=== PATIENT | male | born 1985 | race Caucasian/White ===

== ENCOUNTER 2016-07-28 14:18 | Emergency (ER) | payer MEDICAID ==
[~2016-07-28] VITALS: Ht 177.8 cm; Wt 60.2 kg
[~2016-07-28 14:18] MED LIST: ALBU8.5H5 INH; AMPH20TA2 PO; MORP30TA PO
[2016-07-28] MEDS ORDERED: SODIUM CHLORIDE FLUSH 10ML SYR IVF ONE (15:00)
[2016-07-28] MEDS ORDERED: SODIUM CHLORIDE 0.9% 1,000ML IVBOLUS ONE (15:00)
[2016-07-28] MEDS ORDERED: LIDOCAINE 1%-EPI 1:100K, 20ML SQ ONE (15:00)
[2016-07-28] MEDS ORDERED: CEFTRIAXONE 1,000 MG IM ONE (15:00)
[2016-07-28] MEDS ORDERED: CEFTRIAXONE PMX 1GM/50ML 50 ML ONE (15:21)
[2016-07-28] MEDS ORDERED: LIDOCAINE 1%-EPI 1:100K, 20ML ONE (15:21)
[2016-07-28] MEDS ORDERED: CEFTRIAXONE PMX 1GM/50ML 50 ML IV ONE (15:30)
[2016-07-28 15:32] LABS: BLOOD UREA NITROGEN 5 mg/dL (7-18)
[2016-07-28 19:30] VITALS: BP 100/70
== END 2016-07-28 19:38 | disposition home or self-care (01) ==
LOC: ED 15:18
DX: F10.220 Alcohol dependence with intoxication, uncomplicated (principal); L02.413 Cutaneous abscess of right upper limb; F11.10 Opioid abuse, uncomplicated; Y90.9 Presence of alcohol in blood, level not specified; F17.200 Nicotine dependence, unspecified, uncomplicated; C25.9 Malignant neoplasm of pancreas, unspecified; J45.990 Exercise induced bronchospasm
CPT/HCPCS: 10060; 36415; 80048; 82040; 85025; 96365; 99284; J0696; J7030

== ENCOUNTER 2016-08-31 07:49 | Inpatient (IN) | payer MEDICAID ==
[~2016-08-31] VITALS: Ht 172.7 cm; Wt 60.4 kg
[2016-08-31] MEDS ORDERED: SODIUM CHLORIDE 0.9% 1,000ML IVBOLUS ONE ×2 (08:30→12:30)
[2016-08-31 08:48] LABS: ASPARTATE AMINO TRANSFERASE 39 U/L (15-37); BLOOD UREA NITROGEN 9 mg/dL (7-18)
[2016-08-31] MEDS ORDERED: LORazepam 2 MG/ML, 1ML ONE ×2 (08:50→11:44)
[2016-08-31 08:55] LABS: ACETAMINOPHEN < 2 mcg/mL (10-30)
[2016-08-31] MEDS ORDERED: SUCCINYLCHOLINE 20 MG/ML, 10ML ONE (09:00)
[2016-08-31] MEDS ORDERED: ETOMIDATE 20 MG/10 ML ONE (09:00)
[2016-08-31] MEDS ORDERED: LORazepam 2 MG/ML, 1ML IVPush ONE ×2 (09:00→12:00)
[2016-08-31] MEDS ORDERED: ZIPRASIDONE 20 MG INJ IM ONE ×2 (09:26→09:30)
[2016-08-31 11:01] LABS: DAU SCREEN DISCLAIMER
[2016-08-31] MEDS ORDERED: DIPHENHYDRAMINE 50 MG/ML, 1ML ONE ×2 (11:12→11:13)
[2016-08-31] MEDS ORDERED: DIPHENHYDRAMINE 50 MG/ML, 1ML IVPush ONE (11:30)
[2016-08-31] MEDS ORDERED: PROPOFOL 100 ML IV ONE (12:02)
[2016-08-31] MEDS ORDERED: FENTANYL PF 100 MCG/2ML ONE (12:27)
[2016-08-31] MEDS ORDERED: SODIUM CHLORIDE FLUSH 10ML SYR IVF ONE (12:30)
[2016-08-31] MEDS ORDERED: VANCOMYCIN PER PHARMACY MC ONE (12:30)
[2016-08-31] MEDS ORDERED: ETOMIDATE 20 MG/10 ML IVPush ONE (12:30)
[2016-08-31] MEDS ORDERED: SUCCINYLCHOLINE 20 MG/ML, 10ML IVPush ONE (12:30)
[2016-08-31] MEDS ORDERED: CEFTRIAXONE PMX 2GM/50ML 50 ML IV ONE (12:30)
[2016-08-31] MEDS ORDERED: VANCOMYCIN PMX 1GM/200ML 200 ML IVPB ONE (12:30)
[2016-08-31] MEDS ORDERED: PHARMACOKINETIC CONSULTATION MC ONE ×2 (12:30→18:00)
[2016-08-31] MEDS ORDERED: FENTANYL PF 100 MCG/2ML IVPush ONE (12:30)
[2016-08-31 12:57] LABS: ABG COLLECTION SITE LEFT RADIAL
[2016-08-31 12:58] LABS: COLLATERAL CIRCULATION TESTING NORMAL
[2016-08-31] MEDS: PROPOFOL 100 ML IV SCH ×3 (14:35→22:49)
[2016-08-31] MEDS ORDERED: FENTANYL PF 2,500 MCG in SODIUM CHLORIDE 0.9% 200 ML IV PRN (16:18)
[2016-08-31] MEDS ORDERED: PHARMACY MAY ADJ FOR RENAL FX MC SCH (16:30)
[2016-08-31] MEDS ORDERED: D5%-0.9% NACL+KCL 20MEQ 1,000 ML IV SCH (16:30)
[2016-08-31] MEDS ORDERED: DEXTROSE 50%, 50ML SYRINGE IVPush PRN (16:30)
[2016-08-31] MEDS ORDERED: GLUCAGON 1 MG IM PRN (16:30)
[2016-08-31] MEDS ORDERED: LIDOCAINE-MPF 1%, 2ML ENDO PRN (16:30)
[2016-08-31] MEDS ORDERED: BISACODYL 10 MG SUPP PR PRN (17:00)
[2016-08-31] MEDS ORDERED: MORPHINE SULFATE 4 MG/ML, 1ML IVPush PRN (17:00)
[2016-08-31] MEDS ORDERED: POLYETHYLENE GLYCOL 17 GM PACKET PO PRN (17:00)
[2016-08-31] MEDS ORDERED: VANCOMYCIN PER PHARMACY MC PRN (18:00)
[2016-08-31] MEDS: SODIUM CHLORIDE 0.9% 1,000 ML IV SCH (18:00)
[2016-08-31] MEDS ORDERED: PHARMACOKINETIC MONITORING MC PRN (18:00)
[2016-08-31] MEDS: PIPERACILLIN/TAZO/PMX 3.375GM 50 ML IV SCH (18:08)
[2016-08-31] MEDS: POTASSIUM CHLORIDE 20 MEQ, MAGNESIUM SULFATE 2 GM, THIAMINE 100 MG, MVI ADULT 10 ML, FO... IV SCH (18:08)
[2016-08-31] MEDS: ENOXAPARIN 40 MG/0.4 ML SQ SCH (18:10)
[2016-08-31] MEDS ORDERED: LORazepam 2 MG/ML, 1ML IV PRN ×5 (19:00)
[2016-08-31] MEDS: LORazepam 2 MG/ML, 1ML IVPush PRN ×2 (20:40→22:49)
[2016-08-31] MEDS ORDERED: DOCUSATE 100 MG CAPSULE PO PRN (21:00)
[2016-08-31] MEDS: SODIUM CHLORIDE FLUSH 10ML SYR IVF SCH (21:25)
[2016-08-31] MEDS: FAMOTIDINE 20 MG/2 ML IV SCH (21:25)
[2016-08-31 23:25] VITALS: BP 138/92
[2016-09-01] MEDS: PIPERACILLIN/TAZO/PMX 3.375GM 50 ML IV SCH ×5 (00:15→23:38)
[2016-09-01] MEDS: VANCOMYCIN 1,200 MG in SODIUM CHLORIDE 0.9% 250 ML IV SCH ×2 (00:57→12:14)
[2016-09-01] MEDS: LORazepam 2 MG/ML, 1ML IVPush PRN ×2 (01:50→06:13)
[2016-09-01] MEDS: PROPOFOL 100 ML IV SCH (03:51)
[2016-09-01 04:00] VITALS: BP 118/90
[2016-09-01 04:32] LABS: ABG COLLECTION SITE RIGHT RADIAL; COLLATERAL CIRCULATION TESTING NORMAL
[2016-09-01 04:45] LABS: ASPARTATE AMINO TRANSFERASE 33 U/L (15-37); BLOOD UREA NITROGEN 8 mg/dL (7-18)
[2016-09-01] MEDS: SODIUM CHLORIDE 0.9% 1,000 ML IV SCH (06:46)
[2016-09-01] MEDS: FAMOTIDINE 20 MG/2 ML IV SCH ×2 (09:21→21:05)
[2016-09-01] MEDS: SODIUM CHLORIDE FLUSH 10ML SYR IVF SCH ×2 (09:21→21:05)
[2016-09-01] MEDS: QUETIAPINE 25MG TABLET NG SCH ×2 (09:21→21:05)
[2016-09-01] MEDS ORDERED: ZIPRASIDONE 20 MG INJ IM PRN (14:30)
[2016-09-01] MEDS: NICOTINE 14MG/24 HR PATCH.TD24 TD SCH (14:41)
[2016-09-01] MEDS: POTASSIUM CHLORIDE 20 MEQ, MAGNESIUM SULFATE 2 GM, THIAMINE 100 MG, MVI ADULT 10 ML, FO... IV SCH (17:50)
[2016-09-01] MEDS: ENOXAPARIN 40 MG/0.4 ML SQ SCH (17:53)
[2016-09-02] MEDS: VANCOMYCIN 1,200 MG in SODIUM CHLORIDE 0.9% 250 ML IV SCH ×2 (00:20→12:46)
[2016-09-02] MEDS: SODIUM CHLORIDE 0.9% 1,000 ML IV SCH ×2 (01:51→05:47)
[2016-09-02 04:00] VITALS: BP 116/82
[2016-09-02 04:54] LABS: BLOOD UREA NITROGEN 4 mg/dL (7-18)
[2016-09-02 05:03] LABS: ABG COLLECTION SITE RIGHT RADIAL; COLLATERAL CIRCULATION TESTING NORMAL
[2016-09-02] MEDS: PIPERACILLIN/TAZO/PMX 3.375GM 50 ML IV SCH ×3 (05:48→18:20)
[2016-09-02] MEDS: FAMOTIDINE 20 MG/2 ML IV SCH (09:24)
[2016-09-02] MEDS: SODIUM CHLORIDE FLUSH 10ML SYR IVF SCH ×2 (09:25→20:59)
[2016-09-02] MEDS: QUETIAPINE 25MG TABLET NG SCH ×2 (09:25→20:59)
[2016-09-02 10:54] VITALS: BP 134/88
[2016-09-02] MEDS: NICOTINE 14MG/24 HR PATCH.TD24 TD SCH (14:17)
[2016-09-02 15:58] VITALS: BP 130/86
[2016-09-02] MEDS: POTASSIUM CHLORIDE 20 MEQ, MAGNESIUM SULFATE 2 GM, THIAMINE 100 MG, MVI ADULT 10 ML, FO... IV SCH (18:05)
[2016-09-02] MEDS: ENOXAPARIN 40 MG/0.4 ML SQ SCH (18:05)
[2016-09-02 20:32] VITALS: BP 120/61
[2016-09-03] MEDS: PIPERACILLIN/TAZO/PMX 3.375GM 50 ML IV SCH ×3 (00:09→12:45)
[2016-09-03] MEDS: VANCOMYCIN 1,200 MG in SODIUM CHLORIDE 0.9% 250 ML IV SCH ×2 (01:04→13:25)
[2016-09-03 02:13] VITALS: BP 140/86
[2016-09-03 05:33] LABS: BLOOD UREA NITROGEN 4 mg/dL (7-18)
[2016-09-03 07:54] VITALS: BP 140/88
[2016-09-03] MEDS: SODIUM CHLORIDE FLUSH 10ML SYR IVF SCH (09:00)
[2016-09-03] MEDS: QUETIAPINE 25MG TABLET NG SCH (09:37)
[2016-09-03] MEDS: NICOTINE 14MG/24 HR PATCH.TD24 TD SCH (13:26)
[2016-09-03] MEDS ORDERED: SULF1TAB24 PO (13:40)
[2016-09-03 13:56] VITALS: BP 151/82
== END 2016-09-03 15:35 | disposition home or self-care (01) | DRG 208 ==
LOC: ED 12:06 → EDIP 12:16 → CCU 13:53 → 3NE 09-02 10:39
PROVIDERS: ADMIT Hospitalist; ATTEND Family Medicine
PROC: 5A1945Z Respiratory Ventilation, 24-96 Consecutive Hours (ICD-10-PCS; principal; 2016-08-31)
PROC: 0BH17EZ Insertion of Endotracheal Airway into Trachea, Via Natural or Artificial Opening (ICD-10-PCS; 2016-08-31)
PROC: 0T9B70Z Drainage of Bladder with Drainage Device, Via Natural or Artificial Opening (ICD-10-PCS; 2016-08-31)
DX: J96.00 Acute respiratory failure, unspecified whether with hypoxia or hypercapnia (principal); G92 Toxic encephalopathy; E87.2 Acidosis; Z99.11 Dependence on respirator [ventilator] status; F10.129 Alcohol abuse with intoxication, unspecified; Z85.07 Personal history of malignant neoplasm of pancreas; F15.10 Other stimulant abuse, uncomplicated
CPT/HCPCS: 31500; 36415; 36600; 70450; 71010; 80048; 80053; 80202; 80307; 80329; 81003; 82140; 82550; 82803; 83605; 83690; 83735; 84145; 84443; 84478; 85025; 87040; 87070; 87077; 87081; 87184; 87186; 87205; 93005; 94002; 94003; 96361; 96372; 96374; 96375; 96376; J1650; J2543; J2704; J3010; J3370; J3411; J3475; J3480; J3486; J7042; G0480; J0330; J1200; J2060; J7030; J7050; S0028

== ENCOUNTER 2016-09-08 16:42 | Emergency (ER) | payer MEDICAID ==
[~2016-09-08 16:42] MED LIST changes: +SULF1TAB24 PO
[2016-09-08 16:45] VITALS: BP 119/79
== END 2016-09-08 17:44 | disposition left against medical advice (07) ==
LOC: ED 17:38
DX: R11.0 Nausea (principal); Z53.21 Procedure and treatment not carried out due to patient leaving prior to being seen by health care provider

== ENCOUNTER 2016-11-12 07:14 | Emergency (ER) | payer MEDICAID ==
[~2016-11-12] VITALS: Ht 170.2 cm; Wt 61.6 kg
[2016-11-12 07:18] VITALS: BP 129/74
== END 2016-11-12 07:54 | disposition home or self-care (01) ==
LOC: ED 07:48
DX: L03.113 Cellulitis of right upper limb (principal)

== ENCOUNTER 2016-11-21 14:09 | Emergency (ER) | payer MEDICAID ==
[~2016-11-21] VITALS: Ht 170.2 cm; Wt 55.0 kg
[2016-11-21] MEDS ORDERED: NALOXONE 0.4 MG/ML, 1ML ONE (14:37)
[2016-11-21] MEDS ORDERED: NALOXONE 1 MG/ML, 2ML IVPush ONE (15:30)
[2016-11-21 16:02] VITALS: BP 110/66
[2016-11-21] MEDS ORDERED: OXYC10TA6 PO (16:03)
== END 2016-11-21 16:06 | disposition home or self-care (01) ==
LOC: ED 14:47
DX: T40.1X1A Poisoning by heroin, accidental (unintentional), initial encounter (principal); F17.200 Nicotine dependence, unspecified, uncomplicated; F15.10 Other stimulant abuse, uncomplicated; K86.1 Other chronic pancreatitis; Z85.07 Personal history of malignant neoplasm of pancreas; Z88.8 Allergy status to other drugs, medicaments and biological substances; Y92.89 Other specified places as the place of occurrence of the external cause
CPT/HCPCS: 96374; 99284; J2310

== ENCOUNTER 2017-01-03 18:01 | Emergency (ER) | payer MEDICAID ==
[~2017-01-03] VITALS: Ht 170.2 cm; Wt 60.0 kg
[~2017-01-03 18:01] MED LIST changes: +OXYC10TA6 PO
[2017-01-03] MEDS ORDERED: ONDANSETRON 2MG/ML, 2ML IVPush ONE (18:30)
[2017-01-03] MEDS ORDERED: SODIUM CHLORIDE 0.9% 1,000ML IVBOLUS ONE ×2 (18:30→20:00)
[2017-01-03] MEDS ORDERED: KETOROLAC 30 MG/1 ML IVPush ONE (18:30)
[2017-01-03] MEDS ORDERED: LORazepam 2 MG/ML, 1ML IVPush ONE (18:30)
[2017-01-03] MEDS ORDERED: KETOROLAC 30 MG/1 ML ONE (18:49)
[2017-01-03] MEDS ORDERED: ONDANSETRON 2MG/ML, 2ML ONE (18:50)
[2017-01-03] MEDS ORDERED: LORazepam 2 MG/ML, 1ML ONE (18:50)
[2017-01-03 18:51] LABS: HEMATOCRIT 47.7 % (39.2-51.8); HEMOGLOBIN 15.7 g/dL (13.7-18.0); WHITE BLOOD COUNT 6.6 x10^3/uL (3.4-10)
[2017-01-03 18:57] LABS: ASPARTATE AMINO TRANSFERASE 31 U/L (15-37); BLOOD UREA NITROGEN 6 mg/dL (7-18)
[2017-01-03 19:03] LABS: IS PT STATUS REG ER OR PRE ER? YES
[2017-01-03 20:39] VITALS: BP 138/81
[2017-01-03 22:13] LABS: DAU SCREEN DISCLAIMER
== END 2017-01-03 23:17 | disposition home or self-care (01) ==
LOC: ED 21:45
DX: E86.0 Dehydration (principal); R11.2 Nausea with vomiting, unspecified; F14.20 Cocaine dependence, uncomplicated; F12.20 Cannabis dependence, uncomplicated; F15.20 Other stimulant dependence, uncomplicated
CPT/HCPCS: 36415; 70450; 71010; 80053; 80307; 81001; 82550; 82553; 83605; 83735; 84145; 84436; 84443; 84484; 85025; 87086; 93005; 96361; 96374; 96375; 99285; J1885; J2060; J2405; J7030

== ENCOUNTER 2017-01-31 00:08 | Inpatient (IN) | payer MEDICAID ==
[~2017-01-31] VITALS: Ht 170.2 cm; Wt 59.0 kg
[2017-01-31] MEDS ORDERED: CLINDAMYCIN PMX 900MG/50ML 50 ML IV ONE (02:00)
[2017-01-31] MEDS ORDERED: SODIUM CHLORIDE FLUSH 10ML SYR IVF ONE (02:00)
[2017-01-31] MEDS ORDERED: SODIUM CHLORIDE 0.9% 1,000ML IVBOLUS ONE ×2 (02:00→02:30)
[2017-01-31 02:07] LABS: HEMATOCRIT 52.3 % (39.2-51.8); WHITE BLOOD COUNT 23.1 x10^3/uL (3.4-10)
[2017-01-31 02:17] LABS: BLOOD UREA NITROGEN 6 mg/dL (7-18)
[2017-01-31] MEDS ORDERED: CLINDAMYCIN PMX 900MG/50ML 50 ML ONE (03:19)
[2017-01-31] MEDS ORDERED: ZOLPIDEM 5MG TABLET PO PRN (03:30)
[2017-01-31] MEDS: CLINDAMYCIN PMX 600MG/50ML 50 ML IV SCH ×4 (03:30→23:12)
[2017-01-31] MEDS ORDERED: morphine SULFATE 10 MG/ML, 1ML IVPush PRN (03:30)
[2017-01-31] MEDS ORDERED: ONDANSETRON 2MG/ML, 2ML IVPush PRN (03:30)
[2017-01-31] MEDS ORDERED: ENOXAPARIN 40 MG/0.4 ML ONE (08:28)
[2017-01-31] MEDS: ENOXAPARIN 40 MG/0.4 ML SQ SCH (08:54)
[2017-01-31] MEDS: SODIUM CHLORIDE FLUSH 10ML SYR IVF SCH ×3 (08:55→21:19)
[2017-01-31 10:31] VITALS: BP 117/61
[2017-01-31 11:30] VITALS: BP 117/61
[2017-01-31] MEDS: OXYcodone/APAP 5/325MG TABLET PO PRN ×2 (13:37→21:19)
[2017-01-31 15:59] VITALS: BP 120/71
[2017-01-31 20:00] VITALS: BP 119/69
[2017-02-01 02:56] VITALS: BP 123/75
[2017-02-01] MEDS: CLINDAMYCIN PMX 600MG/50ML 50 ML IV SCH ×2 (05:22→11:20)
[2017-02-01 06:06] LABS: HEMATOCRIT 48.3 % (39.2-51.8); HEMOGLOBIN 15.9 g/dL (13.7-18.0); WHITE BLOOD COUNT 12.8 x10^3/uL (3.4-10)
[2017-02-01 06:11] LABS: BLOOD UREA NITROGEN 9 mg/dL (7-18)
[2017-02-01 07:28] VITALS: BP 117/75
[2017-02-01] MEDS: ENOXAPARIN 40 MG/0.4 ML SQ SCH (09:52)
[2017-02-01] MEDS: SODIUM CHLORIDE FLUSH 10ML SYR IVF SCH ×2 (09:52→21:00)
[2017-02-01] MEDS: OXYcodone/APAP 5/325MG TABLET PO PRN ×2 (10:48→18:01)
[2017-02-01 12:56] VITALS: BP 121/67
[2017-02-01] MEDS: VANCOMYCIN 1,200 MG in SODIUM CHLORIDE 0.9% 250 ML IV SCH (16:00)
[2017-02-01] MEDS ORDERED: PHARMACOKINETIC MONITORING MC PRN (16:00)
[2017-02-01] MEDS ORDERED: PHARMACOKINETIC CONSULTATION MC ONE (16:00)
[2017-02-01] MEDS ORDERED: VANCOMYCIN PER PHARMACY MC PRN (16:00)
[2017-02-01] MEDS ORDERED: AMPICILLIN/SULBACTAM 3 GM IVPB SCH (19:00)
[2017-02-01] MEDS ORDERED: AMPICILLIN/SULBACTAM 3 GM in SODIUM CHLORIDE 0.9% 100 ML IV SCH (19:30)
[2017-02-01 20:08] VITALS: BP 115/74
[2017-02-01] MEDS: AMPICILLIN/SULBACTAM 3 GM in SODIUM CHLORIDE 0.9% 100 ML IV SCH (20:59)
[2017-02-02] MEDS: OXYcodone/APAP 5/325MG TABLET PO PRN ×2 (03:17→09:19)
[2017-02-02] MEDS: AMPICILLIN/SULBACTAM 3 GM in SODIUM CHLORIDE 0.9% 100 ML IV SCH ×2 (03:17→09:19)
[2017-02-02 03:32] VITALS: BP 113/72
[2017-02-02] MEDS: VANCOMYCIN 1,200 MG in SODIUM CHLORIDE 0.9% 250 ML IV SCH (04:16)
[2017-02-02 05:33] LABS: HEMATOCRIT 49.9 % (39.2-51.8); HEMOGLOBIN 16.3 g/dL (13.7-18.0); WHITE BLOOD COUNT 8.7 x10^3/uL (3.4-10)
[2017-02-02 05:41] LABS: BLOOD UREA NITROGEN 12 mg/dL (7-18)
[2017-02-02 08:39] VITALS: BP 109/65
[2017-02-02] MEDS ORDERED: GADOBUTROL 7.5 MMOL/7.5 ML PFS ONE (09:03)
[2017-02-02] MEDS: SODIUM CHLORIDE FLUSH 10ML SYR IVF SCH (09:19)
[2017-02-02] MEDS: ENOXAPARIN 40 MG/0.4 ML SQ SCH (09:19)
== END 2017-02-02 18:00 | disposition left against medical advice (07) | DRG 872 ==
LOC: ED 03:11 → EDIP 03:25 → ED 03:28 → 4NOR 10:18
PROVIDERS: ADMIT Internal Medicine; ATTEND Internal Medicine
DX: A41.9 Sepsis, unspecified organism (principal); E87.1 Hypo-osmolality and hyponatremia; K86.1 Other chronic pancreatitis; L03.113 Cellulitis of right upper limb; D75.89 Other specified diseases of blood and blood-forming organs; F17.200 Nicotine dependence, unspecified, uncomplicated; Z91.81 History of falling; Z79.899 Other long term (current) drug therapy; Z88.8 Allergy status to other drugs, medicaments and biological substances
CPT/HCPCS: 36415; 80048; 83605; 84145; 85025; 87040; 96365; 96366; A9585; J0295; J1650; J3370; J7030; J7050

== ENCOUNTER 2017-04-03 13:14 | Emergency (ER) | payer MEDICAID ==
[~2017-04-03] VITALS: Ht 170.2 cm; Wt 60.0 kg
[2017-04-03] MEDS ORDERED: ONDANSETRON 2MG/ML, 2ML IVPush ONE (14:00)
[2017-04-03] MEDS ORDERED: SODIUM CHLORIDE 0.9% 1,000ML IVBOLUS ONE (14:00)
[2017-04-03] MEDS ORDERED: SODIUM CHLORIDE FLUSH 10ML SYR IVF ONE (14:00)
[2017-04-03] MEDS ORDERED: ONDANSETRON 2MG/ML, 2ML ONE (14:16)
[2017-04-03 14:28] LABS: HEMATOCRIT 43.8 % (39.2-51.8); HEMOGLOBIN 14.6 g/dL (13.7-18.0); WHITE BLOOD COUNT 9.8 x10^3/uL (3.4-10)
[2017-04-03 14:41] LABS: ASPARTATE AMINO TRANSFERASE 415 U/L (15-37); BLOOD UREA NITROGEN 14 mg/dL (7-18)
[2017-04-03 15:27] VITALS: BP 102/55
== END 2017-04-03 15:29 | disposition home or self-care (01) ==
LOC: ED 15:20
DX: R11.2 Nausea with vomiting, unspecified (principal); E86.0 Dehydration; F12.10 Cannabis abuse, uncomplicated; F14.10 Cocaine abuse, uncomplicated; Z85.07 Personal history of malignant neoplasm of pancreas; C25.9 Malignant neoplasm of pancreas, unspecified
CPT/HCPCS: 36415; 80053; 83690; 85025; 93005; 96361; 96374; 99285; J2405; J7030

== ENCOUNTER 2017-04-11 03:20 | Emergency (ER) | payer MEDICAID ==
[~2017-04-11] VITALS: Ht 170.2 cm; Wt 66.8 kg
[2017-04-11 03:21] VITALS: BP 120/74
== END 2017-04-11 05:30 | disposition home or self-care (01) ==
LOC: ED 05:19
DX: L03.116 Cellulitis of left lower limb (principal); F17.210 Nicotine dependence, cigarettes, uncomplicated; R60.0 Localized edema; Z60.2 Problems related to living alone
CPT/HCPCS: 99284

== ENCOUNTER 2017-04-23 22:58 | Emergency (ER) | payer MEDICAID ==
[~2017-04-23] VITALS: Ht 170.2 cm; Wt 63.3 kg
[2017-04-23] MEDS ORDERED: NALOXONE 1 MG/ML, 2ML ONE (23:07)
[2017-04-23 23:56] LABS: HEMATOCRIT 52.4 % (39.2-51.8); HEMOGLOBIN 17.1 g/dL (13.7-18.0); WHITE BLOOD COUNT 10.3 x10^3/uL (3.4-10)
[2017-04-24 00:04] LABS: BLOOD UREA NITROGEN 15 mg/dL (7-18)
[2017-04-24 00:08] LABS: IS PT STATUS REG ER OR PRE ER? YES
[2017-04-24 00:55] VITALS: BP 122/78
== END 2017-04-24 00:57 | disposition home or self-care (01) ==
LOC: ED 23:59
DX: T40.1X1A Poisoning by heroin, accidental (unintentional), initial encounter (principal); X58.XXXA Exposure to other specified factors, initial encounter; Y93.89 Activity, other specified; Y92.89 Other specified places as the place of occurrence of the external cause; Y99.8 Other external cause status
CPT/HCPCS: 36415; 71010; 80048; 82040; 83605; 83880; 84484; 85025; 93005; 99285

== ENCOUNTER 2017-05-01 09:03 | Emergency (ER) | payer MEDICAID ==
[~2017-05-01] VITALS: Ht 170.2 cm; Wt 65.0 kg
[2017-05-01] MEDS ORDERED: SODIUM CHLORIDE 0.9% 1,000ML IVBOLUS ONE (10:00)
[2017-05-01] MEDS ORDERED: ACETAMINOPHEN 500 MG TABLET PO ONE (10:00)
[2017-05-01 10:26] LABS: HEMATOCRIT 45.5 % (39.2-51.8); HEMOGLOBIN 14.8 g/dL (13.7-18.0); WHITE BLOOD COUNT 12.7 x10^3/uL (3.4-10)
[2017-05-01 10:38] LABS: ASPARTATE AMINO TRANSFERASE 655 U/L (15-37); BLOOD UREA NITROGEN 5 mg/dL (7-18)
[2017-05-01 10:51] LABS: DAU SCREEN DISCLAIMER
[2017-05-01] MEDS ORDERED: CEFTRIAXONE PMX 2GM/50ML 50 ML IV ONE (11:00)
[2017-05-01 11:31] LABS: RAPID INFLUENZA A Negative (Negative); RAPID INFLUENZA B Negative (Negative)
[2017-05-01] MEDS ORDERED: CEFTRIAXONE PMX 2GM/50ML 50 ML ONE (12:12)
[2017-05-01] MEDS ORDERED: ACETAMINOPHEN 500 MG TABLET ONE (12:12)
[2017-05-01 14:14] VITALS: BP 104/65
== END 2017-05-01 14:17 | disposition home or self-care (01) ==
LOC: ED 10:19
DX: J18.1 Lobar pneumonia, unspecified organism (principal); C25.9 Malignant neoplasm of pancreas, unspecified
CPT/HCPCS: 36415; 71010; 80053; 80307; 81003; 83605; 84145; 85025; 87040; 87400; 96361; 96374; 99285; J0696; J7030; G0479

== ENCOUNTER 2017-05-05 22:28 | Emergency (ER) | payer MEDICAID ==
[~2017-05-05] VITALS: Ht 170.2 cm; Wt 65.2 kg
[2017-05-05 22:29] VITALS: BP 113/63
[2017-05-05] MEDS ORDERED: LIDOCAINE 1%, 10ML ONE (23:40)
== END 2017-05-06 00:02 | disposition home or self-care (01) ==
LOC: ED 23:50
DX: L03.114 Cellulitis of left upper limb (principal); K86.1 Other chronic pancreatitis; Z85.07 Personal history of malignant neoplasm of pancreas
CPT/HCPCS: 10060; 99283

== ENCOUNTER 2017-05-31 12:50 | Emergency (ER) | payer MEDICAID ==
[~2017-05-31] VITALS: Ht 170.2 cm; Wt 65.7 kg
[2017-05-31 13:02] VITALS: BP 111/63
== END 2017-05-31 15:02 | disposition home or self-care (01) ==
LOC: ED 14:17
DX: G89.11 Acute pain due to trauma (principal); M25.512 Pain in left shoulder; F11.229 Opioid dependence with intoxication, unspecified; F15.229 Other stimulant dependence with intoxication, unspecified; Z72.89 Other problems related to lifestyle; X50.0XXA Overexertion from strenuous movement or load, initial encounter; Y93.39 Activity, other involving climbing, rappelling and jumping off; Y92.89 Other specified places as the place of occurrence of the external cause; Y99.8 Other external cause status
CPT/HCPCS: 99284

== ENCOUNTER 2017-06-09 06:26 | Emergency (ER) | payer MEDICAID ==
[~2017-06-09] VITALS: Ht 172.7 cm; Wt 65.0 kg
[2017-06-09 06:33] VITALS: BP 123/62
== END 2017-06-09 08:30 | disposition left against medical advice (07) ==
LOC: ED 08:10
DX: Z53.21 Procedure and treatment not carried out due to patient leaving prior to being seen by health care provider (principal)

== ENCOUNTER 2017-07-20 14:05 | Emergency (ER) | payer MEDICAID ==
[~2017-07-20] VITALS: Ht 172.7 cm; Wt 66.0 kg
[2017-07-20 14:19] VITALS: BP 128/86
[2017-07-20] MEDS ORDERED: ONDANSETRON 2MG/ML, 2ML IVPush ONE (14:30)
[2017-07-20] MEDS ORDERED: SODIUM CHLORIDE 0.9% 1,000ML IVBOLUS ONE (14:30)
[2017-07-20] MEDS ORDERED: SODIUM CHLORIDE FLUSH 10ML SYR IVF ONE (14:30)
== END 2017-07-20 15:12 | disposition left against medical advice (07) ==
LOC: ED 15:00
DX: R10.9 Unspecified abdominal pain (principal); R11.2 Nausea with vomiting, unspecified
CPT/HCPCS: 99281

== ENCOUNTER 2017-07-25 22:18 | Emergency (ER) | payer MEDICAID ==
[~2017-07-25] VITALS: Ht 170.2 cm; Wt 65.1 kg
[2017-07-25 22:20] VITALS: BP 119/78
[2017-07-25] MEDS ORDERED: SULFAMETH./TRIMETHOPRIM DS 800MG/160MG TABLET ONE (22:56)
[2017-07-25] MEDS ORDERED: SULFAMETH./TRIMETHOPRIM DS 800MG/160MG TABLET PO ONE (23:00)
== END 2017-07-25 23:08 | disposition home or self-care (01) ==
LOC: ED 22:54
DX: L02.414 Cutaneous abscess of left upper limb (principal); C25.9 Malignant neoplasm of pancreas, unspecified
CPT/HCPCS: 99283

== ENCOUNTER 2017-07-27 22:21 | Emergency (ER) | payer MEDICAID ==
[~2017-07-27] VITALS: Ht 170.2 cm; Wt 63.8 kg
[2017-07-27 22:25] VITALS: BP 119/80
[2017-07-27] MEDS ORDERED: LIDOCAINE 1%, 10ML INFIL ONE (23:00)
[2017-07-27] MEDS ORDERED: CLINDAMYCIN 150 MG/ML, 6ML IM ONE (23:00)
[2017-07-27] MEDS ORDERED: CLINDAMYCIN 150 MG/ML, 6ML ONE (23:29)
== END 2017-07-27 23:48 | disposition home or self-care (01) ==
LOC: ED 22:56
DX: L02.413 Cutaneous abscess of right upper limb (principal)
CPT/HCPCS: 10060; 96372; 99283; J3490

== ENCOUNTER 2017-09-09 04:34 | Emergency (ER) | payer MEDICAID ==
[~2017-09-09] VITALS: Ht 170.2 cm; Wt 65.4 kg
[2017-09-09 04:36] VITALS: BP 128/78
== END 2017-09-09 05:25 | disposition home or self-care (01) ==
LOC: ED 05:10
DX: L03.113 Cellulitis of right upper limb (principal); G89.29 Other chronic pain; J45.990 Exercise induced bronchospasm
CPT/HCPCS: 99283

== ENCOUNTER 2017-11-09 21:24 | Emergency (ER) | payer SELFPAY ==
[~2017-11-09] VITALS: Ht 175.3 cm; Wt 68.0 kg
[2017-11-09 21:29] VITALS: BP 113/65
== END 2017-11-09 22:26 | disposition left against medical advice (07) ==
LOC: ED 21:52
DX: T40.2X1A Poisoning by other opioids, accidental (unintentional), initial encounter (principal); F15.129 Other stimulant abuse with intoxication, unspecified
CPT/HCPCS: 93005; 99283

== ENCOUNTER 2017-11-14 19:17 | Emergency (ER) | payer SELFPAY ==
[~2017-11-14] VITALS: Ht 170.2 cm; Wt 68.0 kg
[2017-11-14 19:21] VITALS: BP 138/82
== END 2017-11-14 19:43 | disposition left against medical advice (07) ==
LOC: ED 19:30
DX: S01.91XA Laceration without foreign body of unspecified part of head, initial encounter (principal); X58.XXXA Exposure to other specified factors, initial encounter; Y93.89 Activity, other specified; Y99.8 Other external cause status; Y92.89 Other specified places as the place of occurrence of the external cause; Z53.21 Procedure and treatment not carried out due to patient leaving prior to being seen by health care provider

== ENCOUNTER 2018-02-12 17:24 | Emergency (ER) | payer MEDICAID, OTHER ==
[~2018-02-12] VITALS: Ht 170.2 cm; Wt 64.3 kg
[2018-02-12 17:30] VITALS: BP 141/75
== END 2018-02-12 17:39 | disposition home or self-care (01) ==
LOC: ED 17:33
DX: R10.9 Unspecified abdominal pain (principal); R11.10 Vomiting, unspecified; L02.414 Cutaneous abscess of left upper limb; L02.413 Cutaneous abscess of right upper limb
CPT/HCPCS: 99283

== ENCOUNTER 2018-02-13 03:37 | Emergency (ER) | payer MEDICAID ==
[~2018-02-13] VITALS: Ht 170.2 cm; Wt 68.0 kg
[2018-02-13] MEDS ORDERED: ZIPRASIDONE 20 MG INJ IM ONE ×2 (04:52→05:00)
[2018-02-13] MEDS ORDERED: ONDANSETRON ODT 4 MG ONE (04:52)
[2018-02-13] MEDS ORDERED: ONDANSETRON ODT 4 MG PO ONE (05:00)
[2018-02-13 05:24] VITALS: BP 121/78
== END 2018-02-13 05:26 | disposition home or self-care (01) ==
LOC: ED 03:57
DX: L02.414 Cutaneous abscess of left upper limb (principal); R10.9 Unspecified abdominal pain; R11.10 Vomiting, unspecified
CPT/HCPCS: 96372; 99283; J3486; Q0162

== ENCOUNTER 2018-02-14 23:40 | Inpatient (IN) | payer MEDICAID ==
[~2018-02-14] VITALS: Ht 170.2 cm; Wt 64.7 kg
[2018-02-14] MEDS ORDERED: ACETAMINOPHEN 500 MG TABLET ONE (23:47)
[2018-02-15] MEDS ORDERED: SODIUM CHLORIDE FLUSH 10ML SYR IVF ONE
[2018-02-15] MEDS ORDERED: VANCOMYCIN PER PHARMACY MC ONE
[2018-02-15] MEDS ORDERED: LIDOCAINE 1%-EPI 1:100K, 20ML SQ ONE
[2018-02-15] MEDS ORDERED: PIPERACILLIN/TAZO/PMX 3.375GM 50 ML IV ONE
[2018-02-15] MEDS ORDERED: ACETAMINOPHEN 500 MG TABLET PO ONE
[2018-02-15] MEDS ORDERED: SODIUM CHLORIDE 0.9% 1,000ML IVBOLUS ONE
[2018-02-15] MEDS ORDERED: PIPERACILLIN/TAZO/PMX 3.375GM 50 ML ONE (00:12)
[2018-02-15] MEDS ORDERED: LIDOCAINE-MPF 1%, 5ML ONE (00:12)
[2018-02-15] MEDS ORDERED: LIDOCAINE 1%-EPI 1:100K, 20ML ONE (00:14)
[2018-02-15 00:21] LABS: BASOPHILS # (AUTO) 0.17 x10^3/uL (0-0.1); BASOPHILS % (AUTO) 1 % (0-1); EOSINOPHILS # (AUTO) 0.02 x10^3/uL (0-0.4); EOSINOPHILS % (AUTO) 0 % (1-7); LYMPHOCYTES # (AUTO) 1.38 x10^3/uL (1-3.4); LYMPHOCYTES % (AUTO) 11 % (22-44); MD NO; MEAN CORPUSCULAR HGB CONC 32.9 g/dL (33.2-36.2); MEAN PLATELET VOLUME 6.6 fL (7.4-10.4); MONOCYTES # (AUTO) 0.91 x10^3/uL (0.2-0.8); MONOCYTES % (AUTO) 7 % (2-9); NEUTROPHILS # (AUTO) 10.59 x10^3/uL (1.8-6.8); NEUTROPHILS % (AUTO) 81 % (42-75); PLATELET COUNT 485 x10^3/uL (130-400); RED BLOOD COUNT 5.17 x10^6/uL (4.38-5.82)
[2018-02-15 00:29] LABS: INTERNATIONAL NORMALIZED RATIO 0.97 (0.93-1.1)
[2018-02-15 00:30] LABS: CHLORIDE 101 mmol/L (98-107)
[2018-02-15] MEDS ORDERED: PHARMACOKINETIC CONSULTATION MC ONE (00:30)
[2018-02-15] MEDS ORDERED: VANCOMYCIN 1,300 MG in SODIUM CHLORIDE 0.9% 250 ML IV ONE (00:30)
[2018-02-15 00:31] LABS: ALANINE AMINOTRANSFERASE 34 U/L (12-78); ALBUMIN 2.6 g/dL (3.4-5.0); ANION GAP 8 mmol/L (5-15); CREATININE 0.78 mg/dL (0.7-1.3)
[2018-02-15 00:33] LABS: ALKALINE PHOSPHATASE 152 U/L (45-117); BILIRUBIN,TOTAL 0.3 mg/dL (0.2-1.0); TOTAL PROTEIN 7.7 g/dL (6.4-8.2)
[2018-02-15] MEDS ORDERED: ACETAMINOPHEN 325 MG TABLET PO PRN (01:00)
[2018-02-15] MEDS ORDERED: VANCOMYCIN PER PHARMACY MC PRN (01:00)
[2018-02-15] MEDS ORDERED: BISACODYL 10 MG SUPP PR PRN (01:00)
[2018-02-15] MEDS ORDERED: ONDANSETRON ODT 4 MG PO PRN (01:00)
[2018-02-15] MEDS ORDERED: POLYETHYLENE GLYCOL 17 GM PACKET PO PRN (01:00)
[2018-02-15] MEDS: SODIUM CHLORIDE 0.9% 1,000 ML IV SCH ×2 (01:46→09:15)
[2018-02-15] MEDS: morphine SULFATE 10 MG/ML, 1ML IVPush PRN ×10 (01:59→21:39)
[2018-02-15] MEDS ORDERED: PHARMACOKINETIC MONITORING MC PRN (02:00)
[2018-02-15] MEDS: HEPARIN 5,000 UNITS/ML, 1ML SQ SCH ×3 (02:03→18:00)
[2018-02-15 03:12] VITALS: BP 132/94
[2018-02-15 04:50] LABS: BASOPHILS # (AUTO) 0.24 x10^3/uL (0-0.1); BASOPHILS % (AUTO) 2 % (0-1); EOSINOPHILS # (AUTO) 0.03 x10^3/uL (0-0.4); EOSINOPHILS % (AUTO) 0 % (1-7); LYMPHOCYTES # (AUTO) 1.85 x10^3/uL (1-3.4); LYMPHOCYTES % (AUTO) 13 % (22-44); MD NO; MEAN CORPUSCULAR HEMOGLOBIN 25.7 pg (27.5-34.5); MEAN CORPUSCULAR HGB CONC 32.2 g/dL (33.2-36.2); MEAN PLATELET VOLUME 6.5 fL (7.4-10.4); MONOCYTES # (AUTO) 0.91 x10^3/uL (0.2-0.8); MONOCYTES % (AUTO) 6 % (2-9); NEUTROPHILS # (AUTO) 11.65 x10^3/uL (1.8-6.8); NEUTROPHILS % (AUTO) 79 % (42-75); PLATELET COUNT 449 x10^3/uL (130-400); RED BLOOD COUNT 4.59 x10^6/uL (4.38-5.82); RED CELL DISTRIBUTION WIDTH 18.4 % (9.4-14.8)
[2018-02-15 05:02] LABS: CHLORIDE 104 mmol/L (98-107)
[2018-02-15 05:09] LABS: ALANINE AMINOTRANSFERASE 27 U/L (12-78); ALBUMIN 2.3 g/dL (3.4-5.0); ALKALINE PHOSPHATASE 125 U/L (45-117); ANION GAP 6 mmol/L (5-15); BILIRUBIN,TOTAL 0.4 mg/dL (0.2-1.0); CALCIUM 7.9 mg/dL (8.5-10.1); CREATININE 0.76 mg/dL (0.7-1.3); TOTAL PROTEIN 6.5 g/dL (6.4-8.2)
[2018-02-15] MEDS: PIPERACILLIN/TAZO/PMX 3.375GM 50 ML IV SCH ×4 (06:06→23:52)
[2018-02-15 07:44] VITALS: BP 127/90
[2018-02-15] MEDS: SENNA/DOCUSATE TABLET PO SCH (09:15)
[2018-02-15] MEDS: VANCOMYCIN 1,300 MG in SODIUM CHLORIDE 0.9% 250 ML IV SCH (13:10)
[2018-02-15 13:14] VITALS: BP 135/82
[2018-02-15 16:22] LABS: AMPHETAMINE SCREEN, URINE Negative (Negative); BARBITURATE SCREEN, URINE Negative (Negative); BENZODIAZEPINE SCREEN, URINE Negative (Negative); CANNABINOID SCREEN, URINE Negative (Negative); COCAINE SCREEN, URINE Negative (Negative); METHADONE SCREEN, URINE Negative (Negative); OPIATE SCREEN, URINE Positive (Negative)
[2018-02-15 19:20] VITALS: BP 127/87
[2018-02-16] MEDS: morphine SULFATE 10 MG/ML, 1ML IVPush PRN ×8 (00:35→22:05)
[2018-02-16] MEDS: HEPARIN 5,000 UNITS/ML, 1ML SQ SCH ×3 (00:36→17:54)
[2018-02-16] MEDS: VANCOMYCIN 1,300 MG in SODIUM CHLORIDE 0.9% 250 ML IV SCH ×2 (00:36→12:47)
[2018-02-16 02:23] VITALS: BP 107/67
[2018-02-16] MEDS: SODIUM CHLORIDE 0.9% 1,000 ML IV SCH ×3 (03:37→20:22)
[2018-02-16 04:40] LABS: BASOPHILS # (AUTO) 0.05 x10^3/uL (0-0.1); BASOPHILS % (AUTO) 1 % (0-1); EOSINOPHILS # (AUTO) 0.32 x10^3/uL (0-0.4); EOSINOPHILS % (AUTO) 4 % (1-7); LYMPHOCYTES # (AUTO) 2.49 x10^3/uL (1-3.4); LYMPHOCYTES % (AUTO) 29 % (22-44); MD NO; MEAN CORPUSCULAR HEMOGLOBIN 25.6 pg (27.5-34.5); MEAN CORPUSCULAR HGB CONC 31.5 g/dL (33.2-36.2); MEAN PLATELET VOLUME 6.6 fL (7.4-10.4); MONOCYTES # (AUTO) 0.81 x10^3/uL (0.2-0.8); MONOCYTES % (AUTO) 10 % (2-9); NEUTROPHILS # (AUTO) 4.88 x10^3/uL (1.8-6.8); NEUTROPHILS % (AUTO) 57 % (42-75); PLATELET COUNT 446 x10^3/uL (130-400); RED BLOOD COUNT 4.64 x10^6/uL (4.38-5.82); RED CELL DISTRIBUTION WIDTH 18.9 % (9.4-14.8)
[2018-02-16 04:43] LABS: ANION GAP 3 mmol/L (5-15); CALCIUM 8.3 mg/dL (8.5-10.1); CHLORIDE 106 mmol/L (98-107); CREATININE 0.65 mg/dL (0.7-1.3)
[2018-02-16] MEDS: PIPERACILLIN/TAZO/PMX 3.375GM 50 ML IV SCH ×3 (06:11→17:51)
[2018-02-16 07:52] VITALS: BP 128/74
[2018-02-16] MEDS ORDERED: FENTANYL PF 100 MCG/2ML ONE (08:14)
[2018-02-16] MEDS ORDERED: MIDAZOLAM 1 MG/ML, 5ML ONE (08:14)
[2018-02-16] MEDS: SENNA/DOCUSATE TABLET PO SCH (08:20)
[2018-02-16] MEDS: NICOTINE 14MG/24 HR PATCH.TD24 TD SCH (10:23)
[2018-02-16 13:20] VITALS: BP 119/41
[2018-02-16 20:19] VITALS: BP 119/61
[2018-02-16] MEDS ORDERED: OMNIPAQUE 350 MG/ML, 100ML BOTTLE ONE (21:35)
[2018-02-17] MEDS: PIPERACILLIN/TAZO/PMX 3.375GM 50 ML IV SCH ×4 (00:36→17:42)
[2018-02-17 00:55] LABS: BASOPHILS # (AUTO) 0.16 x10^3/uL (0-0.1); BASOPHILS % (AUTO) 3 % (0-1); EOSINOPHILS # (AUTO) 0.25 x10^3/uL (0-0.4); EOSINOPHILS % (AUTO) 5 % (1-7); LYMPHOCYTES # (AUTO) 1.94 x10^3/uL (1-3.4); LYMPHOCYTES % (AUTO) 37 % (22-44); MD NO; MEAN CORPUSCULAR HEMOGLOBIN 25.8 pg (27.5-34.5); MEAN CORPUSCULAR VOLUME 80.5 fL (81-97); MEAN PLATELET VOLUME 6.4 fL (7.4-10.4); MONOCYTES % (AUTO) 11 % (2-9); NEUTROPHILS # (AUTO) 2.36 x10^3/uL (1.8-6.8); NEUTROPHILS % (AUTO) 44 % (42-75); PLATELET COUNT 461 x10^3/uL (130-400); RED BLOOD COUNT 4.89 x10^6/uL (4.38-5.82); RED CELL DISTRIBUTION WIDTH 18.6 % (9.4-14.8)
[2018-02-17 01:03] LABS: ANION GAP 6 mmol/L (5-15); CALCIUM 8.6 mg/dL (8.5-10.1); CHLORIDE 103 mmol/L (98-107); CREATININE 0.74 mg/dL (0.7-1.3)
[2018-02-17] MEDS: morphine SULFATE 10 MG/ML, 1ML IVPush PRN ×7 (01:20→21:38)
[2018-02-17] MEDS: VANCOMYCIN 1,300 MG in SODIUM CHLORIDE 0.9% 250 ML IV SCH ×2 (01:20→12:49)
[2018-02-17 01:23] VITALS: BP 122/79
[2018-02-17] MEDS: HEPARIN 5,000 UNITS/ML, 1ML SQ SCH ×3 (03:00→18:29)
[2018-02-17 07:15] VITALS: BP 119/69
[2018-02-17] MEDS: SODIUM CHLORIDE 0.9% 1,000 ML IV SCH ×3 (10:00→21:38)
[2018-02-17] MEDS: SENNA/DOCUSATE TABLET PO SCH (10:30)
[2018-02-17] MEDS: NICOTINE 14MG/24 HR PATCH.TD24 TD SCH (10:31)
[2018-02-17] MEDS ORDERED: FENTANYL PF 100 MCG/2ML ONE (13:14)
[2018-02-17] MEDS ORDERED: MIDAZOLAM 1 MG/ML, 2ML ONE ×2 (13:14→14:03)
[2018-02-17] MEDS ORDERED: PROPOFOL 10 MG/ML, 50ML ONE (13:25)
[2018-02-17 15:20] VITALS: BP 134/78
[2018-02-17] MEDS ORDERED: IBUP-653 PO (15:35)
[2018-02-17] MEDS ORDERED: CEPH-368 PO (15:35)
[2018-02-17 20:44] VITALS: BP 119/76
[2018-02-18] MEDS: PIPERACILLIN/TAZO/PMX 3.375GM 50 ML IV SCH ×2 (00:13→05:33)
[2018-02-18] MEDS: VANCOMYCIN 1,300 MG in SODIUM CHLORIDE 0.9% 250 ML IV SCH (01:20)
[2018-02-18] MEDS: morphine SULFATE 10 MG/ML, 1ML IVPush PRN ×3 (01:20→07:44)
[2018-02-18] MEDS: HEPARIN 5,000 UNITS/ML, 1ML SQ SCH ×2 (01:21→10:25)
[2018-02-18 02:18] VITALS: BP 120/70
[2018-02-18 05:03] LABS: BASOPHILS # (AUTO) 0.02 x10^3/uL (0-0.1); BASOPHILS % (AUTO) 1 % (0-1); EOSINOPHILS # (AUTO) 0.11 x10^3/uL (0-0.4); EOSINOPHILS % (AUTO) 2 % (1-7); LYMPHOCYTES # (AUTO) 1.63 x10^3/uL (1-3.4); LYMPHOCYTES % (AUTO) 30 % (22-44); MD NO; MEAN CORPUSCULAR HEMOGLOBIN 25.6 pg (27.5-34.5); MEAN CORPUSCULAR VOLUME 79.8 fL (81-97); MEAN PLATELET VOLUME 6.6 fL (7.4-10.4); MONOCYTES # (AUTO) 0.46 x10^3/uL (0.2-0.8); MONOCYTES % (AUTO) 9 % (2-9); NEUTROPHILS # (AUTO) 3.14 x10^3/uL (1.8-6.8); NEUTROPHILS % (AUTO) 59 % (42-75); PLATELET COUNT 501 x10^3/uL (130-400); RED BLOOD COUNT 4.79 x10^6/uL (4.38-5.82); RED CELL DISTRIBUTION WIDTH 18.5 % (9.4-14.8)
[2018-02-18 05:12] LABS: ANION GAP 7 mmol/L (5-15); CALCIUM 8.3 mg/dL (8.5-10.1); CHLORIDE 106 mmol/L (98-107); CREATININE 0.77 mg/dL (0.7-1.3)
[2018-02-18] MEDS: SODIUM CHLORIDE 0.9% 1,000 ML IV SCH (05:33)
[2018-02-18 07:40] VITALS: BP 122/77
[2018-02-18] MEDS: SENNA/DOCUSATE TABLET PO SCH (09:00)
[2018-02-18] MEDS: NICOTINE 14MG/24 HR PATCH.TD24 TD SCH (10:25)
== END 2018-02-18 10:45 | disposition left against medical advice (07) | DRG 872 ==
LOC: ED 02-15 00:03 → EDIP 02-15 00:34 → 3NW 02-15 01:22
PROVIDERS: ADMIT Internal Medicine; ATTEND Internal Medicine
DX: A41.9 Sepsis, unspecified organism (principal); E44.0 Moderate protein-calorie malnutrition; K86.1 Other chronic pancreatitis; L02.413 Cutaneous abscess of right upper limb; L03.113 Cellulitis of right upper limb; M00.9 Pyogenic arthritis, unspecified; Z53.21 Procedure and treatment not carried out due to patient leaving prior to being seen by health care provider; S41.001A Unspecified open wound of right shoulder, initial encounter; X58.XXXA Exposure to other specified factors, initial encounter; D64.9 Anemia, unspecified; F17.210 Nicotine dependence, cigarettes, uncomplicated; Z68.22 Body mass index [BMI] 22.0-22.9, adult; Y93.89 Activity, other specified; Y92.89 Other specified places as the place of occurrence of the external cause; Y99.8 Other external cause status
CPT/HCPCS: 10060; 36415; 71045; 80048; 80053; 80202; 80307; 82728; 83540; 83550; 83605; 85025; 85610; 85730; 87040; 87070; 87077; 87147; 87186; 87205; 96365; 99156; 99157; G0378; J1644; J2250; J2543; J2704; J3010; J3370; J3490; Q9967; J2270; J7030; J7050

== ENCOUNTER 2018-03-13 00:57 | Emergency (ER) | payer MEDICAID ==
[~2018-03-13 00:57] MED LIST changes: +CEPH-368 PO; +IBUP-653 PO
== END 2018-03-13 01:17 | disposition left against medical advice (07) ==
LOC: ED 01:11
DX: M79.671 Pain in right foot (principal); Z53.21 Procedure and treatment not carried out due to patient leaving prior to being seen by health care provider

== ENCOUNTER 2018-04-08 15:43 | Emergency (ER) | payer MEDICAID ==
[~2018-04-08] VITALS: Ht 170.2 cm; Wt 64.7 kg
[2018-04-08 16:03] LABS: BASOPHILS # (AUTO) 0.13 x10^3/uL (0-0.1); BASOPHILS % (AUTO) 1 % (0-1); EOSINOPHILS # (AUTO) 0.19 x10^3/uL (0-0.4); EOSINOPHILS % (AUTO) 2 % (1-7); LYMPHOCYTES % (AUTO) 18 % (22-44); MD NO; MEAN CORPUSCULAR HGB CONC 32.2 g/dL (33.2-36.2); MEAN CORPUSCULAR VOLUME 77.5 fL (81-97); MEAN PLATELET VOLUME 6.6 fL (7.4-10.4); MONOCYTES % (AUTO) 9 % (2-9); NEUTROPHILS # (AUTO) 7.05 x10^3/uL (1.8-6.8); NEUTROPHILS % (AUTO) 70 % (42-75); PLATELET COUNT 486 x10^3/uL (130-400); RED BLOOD COUNT 5.39 x10^6/uL (4.38-5.82); RED CELL DISTRIBUTION WIDTH 17.5 % (9.4-14.8)
[2018-04-08 16:11] LABS: ALANINE AMINOTRANSFERASE 64 U/L (12-78); ALBUMIN 3.6 g/dL (3.4-5.0); ANION GAP 7 mmol/L (5-15); CALCIUM 8.7 mg/dL (8.5-10.1); CHLORIDE 105 mmol/L (98-107)
[2018-04-08 16:13] LABS: ALKALINE PHOSPHATASE 179 U/L (45-117); BILIRUBIN,TOTAL 0.3 mg/dL (0.2-1.0); TOTAL PROTEIN 7.9 g/dL (6.4-8.2)
[2018-04-08 16:28] VITALS: BP 109/74
[2018-04-08] MEDS ORDERED: ONDANSETRON ODT 4 MG ONE (16:28)
[2018-04-08] MEDS ORDERED: ONDANSETRON ODT 4 MG PO ONE (16:30)
[2018-04-08 16:43] LABS: MICROSCOPIC INDICATED
[2018-04-08 16:53] LABS: CULTURE INDICATED? NO
== END 2018-04-08 17:30 | disposition home or self-care (01) ==
LOC: ED 16:17
DX: R11.2 Nausea with vomiting, unspecified (principal); R10.84 Generalized abdominal pain; F11.10 Opioid abuse, uncomplicated; F15.10 Other stimulant abuse, uncomplicated; F17.200 Nicotine dependence, unspecified, uncomplicated; Z90.89 Acquired absence of other organs; Z87.19 Personal history of other diseases of the digestive system
CPT/HCPCS: 36415; 71046; 80053; 81001; 83690; 85025; 99284; Q0162

== ENCOUNTER 2018-04-17 04:08 | Inpatient (IN) | payer MEDICAID ==
[~2018-04-17] VITALS: Ht 170.2 cm; Wt 62.0 kg
[2018-04-17] MEDS ORDERED: ACETAMINOPHEN 500 MG TABLET PO ONE (05:00)
[2018-04-17] MEDS ORDERED: CEFTRIAXONE PMX 1GM/50ML 50 ML IV ONE (05:00)
[2018-04-17] MEDS ORDERED: SODIUM CHLORIDE 0.9% 1,000ML IVBOLUS ONE (05:00)
[2018-04-17] MEDS ORDERED: ALBUTEROL/IPRATROPIUM 2.5MG/0.5MG, 3 ML NPPB SCH (05:00)
[2018-04-17 05:26] LABS: RAPID INFLUENZA A Negative (Negative); RAPID INFLUENZA B Negative (Negative)
[2018-04-17] MEDS ORDERED: KETOROLAC 30 MG/1 ML IVPush ONE (05:30)
[2018-04-17] MEDS ORDERED: LIDOCAINE-MPF 1%, 5ML INFIL ONE (05:30)
[2018-04-17 05:36] LABS: BASOPHILS # (AUTO) 0.33 x10^3/uL (0-0.1); BASOPHILS % (AUTO) 2 % (0-1); EOSINOPHILS # (AUTO) 0.04 x10^3/uL (0-0.4); EOSINOPHILS % (AUTO) 0 % (1-7); LYMPHOCYTES # (AUTO) 1.08 x10^3/uL (1-3.4); LYMPHOCYTES % (AUTO) 8 % (22-44); MD NO; MEAN CORPUSCULAR HEMOGLOBIN 25.6 pg (27.5-34.5); MEAN CORPUSCULAR HGB CONC 32.9 g/dL (33.2-36.2); MEAN CORPUSCULAR VOLUME 77.9 fL (81-97); MEAN PLATELET VOLUME 6.9 fL (7.4-10.4); MONOCYTES # (AUTO) 1.08 x10^3/uL (0.2-0.8); MONOCYTES % (AUTO) 8 % (2-9); NEUTROPHILS # (AUTO) 11.54 x10^3/uL (1.8-6.8); NEUTROPHILS % (AUTO) 82 % (42-75); PLATELET COUNT 470 x10^3/uL (130-400); RED BLOOD COUNT 4.81 x10^6/uL (4.38-5.82); RED CELL DISTRIBUTION WIDTH 18.5 % (9.4-14.8)
[2018-04-17] MEDS ORDERED: LIDOCAINE-MPF 1%, 5ML ONE (05:36)
[2018-04-17] MEDS ORDERED: CEFTRIAXONE PMX 1GM/50ML 50 ML ONE (05:36)
[2018-04-17] MEDS ORDERED: KETOROLAC 30 MG/1 ML ONE (05:36)
[2018-04-17] MEDS ORDERED: ACETAMINOPHEN 500 MG TABLET ONE (05:36)
[2018-04-17 05:46] LABS: ALBUMIN 2.7 g/dL (3.4-5.0); ANION GAP 9 mmol/L (5-15); CALCIUM 7.9 mg/dL (8.5-10.1); CHLORIDE 105 mmol/L (98-107)
[2018-04-17 05:49] LABS: ALANINE AMINOTRANSFERASE 45 U/L (12-78); ALKALINE PHOSPHATASE 148 U/L (45-117); BILIRUBIN,TOTAL 0.4 mg/dL (0.2-1.0); CREATININE 0.67 mg/dL (0.7-1.3); TOTAL PROTEIN 6.9 g/dL (6.4-8.2)
[2018-04-17] MEDS ORDERED: VANCOMYCIN PER PHARMACY IV ONE (06:30)
[2018-04-17] MEDS ORDERED: VANCOMYCIN 1,300 MG in SODIUM CHLORIDE 0.9% 250 ML IV ONE (06:30)
[2018-04-17] MEDS ORDERED: IBUPROFEN 600 MG TABLET PO PRN (07:30)
[2018-04-17] MEDS ORDERED: hydrALAzine 20 MG/ML, 1ML IVPush PRN (07:30)
[2018-04-17] MEDS ORDERED: LABETALOL 5MG/ML, 20ML IVPush PRN (07:30)
[2018-04-17] MEDS ORDERED: ONDANSETRON ODT 4 MG PO PRN (07:30)
[2018-04-17 07:48] VITALS: BP 112/72
[2018-04-17 08:13] LABS: THYROID STIMULATING HORMONE 0.095 mIU/L (0.358-3.740)
[2018-04-17 08:27] LABS: HCT (SEDRATE) 37.5 % (39.2-51.8)
[2018-04-17 08:30] VITALS: BP 112/72
[2018-04-17] MEDS: AMPICILLIN/SULBACTAM 3 GM in SODIUM CHLORIDE 0.9% 100 ML IV SCH ×2 (08:35→18:54)
[2018-04-17] MEDS: BENZONATATE 100 MG CAPSULE PO SCH ×3 (08:36→20:53)
[2018-04-17] MEDS: DOXYCYCLINE 100MG TABLET PO SCH ×2 (08:37→20:53)
[2018-04-17] MEDS: NICOTINE 14MG/24 HR PATCH.TD24 TD SCH (08:38)
[2018-04-17] MEDS: HEPARIN 5,000 UNITS/ML, 1ML SQ SCH ×2 (08:38→16:49)
[2018-04-17] MEDS: GUAIFENESIN ER 600 MG TABLET PO SCH ×2 (08:38→20:53)
[2018-04-17] MEDS ORDERED: MAGNESIUM SULFATE PMX 2GM/50ML 50 ML IV ONE (09:00)
[2018-04-17] MEDS ORDERED: FUROSEMIDE 10 MG/ML ORAL SOL PO SCH (09:00)
[2018-04-17 12:00] VITALS: BP 114/63
[2018-04-17 12:53] LABS: MICROSCOPIC NOT IND
[2018-04-17 12:57] LABS: CULTURE INDICATED? NO
[2018-04-17 13:03] LABS: AMPHETAMINE SCREEN, URINE Positive (Negative); BARBITURATE SCREEN, URINE Negative (Negative); BENZODIAZEPINE SCREEN, URINE Negative (Negative); CANNABINOID SCREEN, URINE Negative (Negative); COCAINE SCREEN, URINE Negative (Negative); METHADONE SCREEN, URINE Negative (Negative); OPIATE SCREEN, URINE Positive (Negative)
[2018-04-17] MEDS: NS + 20MEQ KCL 1,000 ML IV SCH ×2 (13:46→22:30)
[2018-04-17] MEDS: ACETAMINOPHEN 325 MG TABLET PO PRN ×2 (16:49→21:08)
[2018-04-17 19:32] VITALS: BP 118/71
[2018-04-18] MEDS: HEPARIN 5,000 UNITS/ML, 1ML SQ SCH ×3 (00:30→16:30)
[2018-04-18 00:52] VITALS: BP 126/76
[2018-04-18] MEDS: AMPICILLIN/SULBACTAM 3 GM in SODIUM CHLORIDE 0.9% 100 ML IV SCH ×4 (00:55→17:44)
[2018-04-18] MEDS: NS + 20MEQ KCL 1,000 ML IV SCH ×2 (07:14→17:45)
[2018-04-18] MEDS: GUAIFENESIN ER 600 MG TABLET PO SCH ×2 (08:42→21:59)
[2018-04-18] MEDS: NICOTINE 14MG/24 HR PATCH.TD24 TD SCH (08:42)
[2018-04-18] MEDS: DOXYCYCLINE 100MG TABLET PO SCH ×2 (08:42→21:59)
[2018-04-18] MEDS: BENZONATATE 100 MG CAPSULE PO SCH ×3 (08:42→21:59)
[2018-04-18 14:00] VITALS: BP 135/65
[2018-04-18 19:09] VITALS: BP 123/79
[2018-04-19] MEDS: HEPARIN 5,000 UNITS/ML, 1ML SQ SCH ×3 (00:30→16:21)
[2018-04-19] MEDS: NS + 20MEQ KCL 1,000 ML IV SCH (01:23)
[2018-04-19] MEDS: AMPICILLIN/SULBACTAM 3 GM in SODIUM CHLORIDE 0.9% 100 ML IV SCH ×4 (01:23→20:12)
[2018-04-19 01:35] VITALS: BP 132/50
[2018-04-19 07:27] VITALS: BP 133/81
[2018-04-19] MEDS: BENZONATATE 100 MG CAPSULE PO SCH ×3 (08:11→20:12)
[2018-04-19] MEDS: NICOTINE 14MG/24 HR PATCH.TD24 TD SCH (08:11)
[2018-04-19] MEDS: DOXYCYCLINE 100MG TABLET PO SCH (08:12)
[2018-04-19] MEDS: GUAIFENESIN ER 600 MG TABLET PO SCH ×2 (08:12→20:12)
[2018-04-19 08:44] LABS: BASOPHILS # (AUTO) 0.07 x10^3/uL (0-0.1); BASOPHILS % (AUTO) 1 % (0-1); EOSINOPHILS # (AUTO) 0.31 x10^3/uL (0-0.4); EOSINOPHILS % (AUTO) 4 % (1-7); LYMPHOCYTES # (AUTO) 1.66 x10^3/uL (1-3.4); LYMPHOCYTES % (AUTO) 19 % (22-44); MD NO; MEAN CORPUSCULAR HEMOGLOBIN 24.6 pg (27.5-34.5); MEAN CORPUSCULAR HGB CONC 31.6 g/dL (33.2-36.2); MEAN CORPUSCULAR VOLUME 77.9 fL (81-97); MEAN PLATELET VOLUME 6.7 fL (7.4-10.4); MONOCYTES # (AUTO) 0.93 x10^3/uL (0.2-0.8); MONOCYTES % (AUTO) 11 % (2-9); NEUTROPHILS # (AUTO) 5.94 x10^3/uL (1.8-6.8); NEUTROPHILS % (AUTO) 67 % (42-75); PLATELET COUNT 527 x10^3/uL (130-400); RED BLOOD COUNT 5.58 x10^6/uL (4.38-5.82)
[2018-04-19 08:47] LABS: ANION GAP 9 mmol/L (5-15); CALCIUM 8.3 mg/dL (8.5-10.1); CHLORIDE 105 mmol/L (98-107); CREATININE 0.76 mg/dL (0.7-1.3)
[2018-04-19 13:30] VITALS: BP 112/67
[2018-04-19 19:36] VITALS: BP 119/77
[2018-04-20] MEDS: HEPARIN 5,000 UNITS/ML, 1ML SQ SCH ×3 (00:30→16:30)
[2018-04-20 01:14] VITALS: BP 128/83
[2018-04-20] MEDS: AMPICILLIN/SULBACTAM 3 GM in SODIUM CHLORIDE 0.9% 100 ML IV SCH ×4 (02:29→20:01)
[2018-04-20 06:56] VITALS: BP 130/87
[2018-04-20] MEDS: BENZONATATE 100 MG CAPSULE PO SCH ×3 (08:16→22:49)
[2018-04-20] MEDS: GUAIFENESIN ER 600 MG TABLET PO SCH ×2 (08:16→22:49)
[2018-04-20] MEDS: NICOTINE 14MG/24 HR PATCH.TD24 TD SCH (08:16)
[2018-04-20 12:40] VITALS: BP 118/78
[2018-04-20] MEDS ORDERED: FENTANYL PF 100 MCG/2ML ONE ×2 (20:23→21:09)
[2018-04-20] MEDS ORDERED: MIDAZOLAM 1 MG/ML, 2ML ONE (20:24)
[2018-04-20] MEDS ORDERED: ONDANSETRON 2MG/ML, 2ML ONE (20:45)
[2018-04-20] MEDS ORDERED: DEXAMETHASONE 4 MG/ML, 1ML ONE (20:45)
[2018-04-20] MEDS ORDERED: PROPOFOL 10 MG/ML, 20ML ONE (20:45)
[2018-04-20] MEDS ORDERED: hydrALAzine 20 MG/ML, 1ML IV PRN (21:30)
[2018-04-20] MEDS ORDERED: PROMETHAZINE 25 MG/ML, 1ML IV PRN (21:30)
[2018-04-20] MEDS: HYDROmorphone 2 MG/ML, 1ML IVPush PRN ×5 (21:30→22:12)
[2018-04-20] MEDS ORDERED: DIAZEPAM 5 MG/ML, 2ML IVPush PRN (21:30)
[2018-04-20] MEDS ORDERED: ALBUTEROL SULFATE 2.5 MG/3 ML NPPB PRN (21:30)
[2018-04-20] MEDS ORDERED: MEPERIDINE/PF 25MG/0.5ML IVPush PRN (21:30)
[2018-04-20] MEDS ORDERED: LABETALOL 5MG/ML, 20ML IV PRN (21:30)
[2018-04-20] MEDS ORDERED: KETOROLAC 30 MG/1 ML IV PRN (21:30)
[2018-04-20] MEDS ORDERED: ACETAMINOPHEN 325 MG TABLET PO PRN (21:30)
[2018-04-20] MEDS ORDERED: OXYcodone 5 MG/5 ML ORAL.SOL UDC PO PRN (21:30)
[2018-04-20] MEDS: FENTANYL PF 100 MCG/2ML IV PRN ×2 (21:32→21:55)
[2018-04-20 23:37] VITALS: BP 103/64
[2018-04-21] MEDS: HEPARIN 5,000 UNITS/ML, 1ML SQ SCH ×3 (00:30→16:39)
[2018-04-21 00:35] VITALS: BP 113/72
[2018-04-21] MEDS: OXYcodone/APAP 10/325MG TABLET PO PRN ×4 (00:40→20:31)
[2018-04-21] MEDS: AMPICILLIN/SULBACTAM 3 GM in SODIUM CHLORIDE 0.9% 100 ML IV SCH ×4 (02:10→20:31)
[2018-04-21 07:02] VITALS: BP 117/78
[2018-04-21] MEDS: GUAIFENESIN ER 600 MG TABLET PO SCH ×2 (08:12→20:32)
[2018-04-21] MEDS: BENZONATATE 100 MG CAPSULE PO SCH ×3 (08:12→20:32)
[2018-04-21] MEDS: NICOTINE 14MG/24 HR PATCH.TD24 TD SCH (08:13)
[2018-04-21 14:24] VITALS: BP 119/83
[2018-04-21 19:36] VITALS: BP 115/67
[2018-04-22] MEDS: HEPARIN 5,000 UNITS/ML, 1ML SQ SCH ×3 (00:41→15:52)
[2018-04-22] MEDS: OXYcodone/APAP 10/325MG TABLET PO PRN ×4 (02:32→22:05)
[2018-04-22] MEDS: AMPICILLIN/SULBACTAM 3 GM in SODIUM CHLORIDE 0.9% 100 ML IV SCH ×4 (02:32→20:58)
[2018-04-22 02:54] VITALS: BP 99/58
[2018-04-22 07:37] VITALS: BP 107/58
[2018-04-22] MEDS: GUAIFENESIN ER 600 MG TABLET PO SCH ×2 (09:09→20:57)
[2018-04-22] MEDS: BENZONATATE 100 MG CAPSULE PO SCH ×3 (09:09→20:58)
[2018-04-22] MEDS: NICOTINE 14MG/24 HR PATCH.TD24 TD SCH (09:09)
[2018-04-22 13:57] VITALS: BP 112/63
[2018-04-22 20:12] VITALS: BP 112/57
[2018-04-23] MEDS: HEPARIN 5,000 UNITS/ML, 1ML SQ SCH ×3 (00:16→16:30)
[2018-04-23 01:11] VITALS: BP 110/61
[2018-04-23] MEDS: AMPICILLIN/SULBACTAM 3 GM in SODIUM CHLORIDE 0.9% 100 ML IV SCH ×3 (02:24→14:09)
[2018-04-23] MEDS: OXYcodone/APAP 10/325MG TABLET PO PRN ×2 (04:13→10:13)
[2018-04-23 04:45] LABS: AMPHETAMINE SCREEN, URINE Negative (Negative); BARBITURATE SCREEN, URINE Negative (Negative); BENZODIAZEPINE SCREEN, URINE Negative (Negative); CANNABINOID SCREEN, URINE Negative (Negative); COCAINE SCREEN, URINE Negative (Negative); METHADONE SCREEN, URINE Negative (Negative); OPIATE SCREEN, URINE Positive (Negative)
[2018-04-23 07:40] VITALS: BP 109/66
[2018-04-23] MEDS: NICOTINE 14MG/24 HR PATCH.TD24 TD SCH (09:03)
[2018-04-23 12:36] VITALS: BP 96/58
[2018-04-23] MEDS ORDERED: LIDOCAINE-MPF 1%, 5ML ONE ×2 (14:28→15:40)
[2018-04-23] MEDS ORDERED: FENTANYL PF 100 MCG/2ML ONE (15:08)
[2018-04-23] MEDS ORDERED: MIDAZOLAM 1 MG/ML, 5ML ONE ×2 (15:08→15:09)
[2018-04-23] MEDS ORDERED: FLUMAZENIL 0.1 MG/1 ML, 5ML ONE (15:09)
[2018-04-23] MEDS ORDERED: NALOXONE 1 MG/ML, 2ML ONE (15:09)
[2018-04-23] MEDS ORDERED: AMOX1TAB64 PO (16:52)
== END 2018-04-23 18:10 | disposition home or self-care (01) | DRG 854 ==
LOC: ED 04:33 → OBSVTOIN 06:02 → INTOOBSV 06:02 → EDIP 06:02 → 4WST 07:37
PROVIDERS: ADMIT Internal Medicine; ATTEND Internal Medicine
PROC: 0HJPXZZ Inspection of Skin, External Approach (ICD-10-PCS; 2018-04-17)
PROC: 0K960ZZ Drainage of Left Shoulder Muscle, Open Approach (ICD-10-PCS; 2018-04-20)
PROC: 0JPT3WZ Removal of Totally Implantable Vascular Access Device from Trunk Subcutaneous Tissue and Fascia, Percutaneous Approach (ICD-10-PCS; principal; 2018-04-23)
DX: A41.9 Sepsis, unspecified organism (principal); L03.113 Cellulitis of right upper limb; E44.0 Moderate protein-calorie malnutrition; L02.413 Cutaneous abscess of right upper limb; L03.114 Cellulitis of left upper limb; M60.022 Infective myositis, left upper arm; M60.021 Infective myositis, right upper arm; F15.90 Other stimulant use, unspecified, uncomplicated; F17.210 Nicotine dependence, cigarettes, uncomplicated; Z91.19 Patient's noncompliance with other medical treatment and regimen; Z85.07 Personal history of malignant neoplasm of pancreas; Z68.21 Body mass index [BMI] 21.0-21.9, adult; Z88.8 Allergy status to other drugs, medicaments and biological substances
CPT/HCPCS: 36415; 36590; 71046; 77001; 80048; 80053; 80307; 81003; 83605; 83735; 84100; 84145; 84443; 85025; 85651; 87040; 87070; 87075; 87086; 87147; 87205; 87400; 93005; 96365; 96375; 99156; 99157; 99285; G0378; J0295; J0696; J1100; J1170; J1644; J1885; J2250; J2405; J2704; J3010; J3370; J3480; J2310; J3475; J7030; J7050

== ENCOUNTER 2018-05-15 14:06 | Emergency (ER) | payer MEDICAID ==
[~2018-05-15] VITALS: Ht 170.2 cm; Wt 66.5 kg
[~2018-05-15 14:06] MED LIST changes: +AMOX1TAB64 PO
--- NOTE | 2018-05-15 14:15 | NUR ---
AMBULATORY TO ED ROOM 29; GAIT STEADY
--- NOTE | 2018-05-15 14:20 | NUR ---
PT REPORTS HEAD CONGESTION & PAIN X A COUPLE OF DAYS. PT UNCOOPERATIVE IN ANSWERING QUESTIONS.
[2018-05-15 14:21] VITALS: BP 138/81
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
[2018-05-15 14:43] LABS: BASOPHILS % (AUTO) 2 % (0-1); EOSINOPHILS # (AUTO) 0.01 x10^3/uL (0-0.4); EOSINOPHILS % (AUTO) 0 % (1-7); LYMPHOCYTES # (AUTO) 1.45 x10^3/uL (1-3.4); LYMPHOCYTES % (AUTO) 13 % (22-44); MD NO; MEAN CORPUSCULAR HGB CONC 31.3 g/dL (33.2-36.2); MEAN CORPUSCULAR VOLUME 76.7 fL (81-97); MEAN PLATELET VOLUME 6.7 fL (7.4-10.4); MONOCYTES # (AUTO) 0.94 x10^3/uL (0.2-0.8); MONOCYTES % (AUTO) 8 % (2-9); NEUTROPHILS # (AUTO) 8.85 x10^3/uL (1.8-6.8); NEUTROPHILS % (AUTO) 77 % (42-75); PLATELET COUNT 309 x10^3/uL (130-400); RED CELL DISTRIBUTION WIDTH 18.5 % (9.4-14.8)
[2018-05-15 14:51] LABS: ALBUMIN 3.4 g/dL (3.4-5.0); ANION GAP 7 mmol/L (5-15); CALCIUM 8.4 mg/dL (8.5-10.1); CHLORIDE 101 mmol/L (98-107); CREATININE 0.69 mg/dL (0.7-1.3)
--- NOTE | 2018-05-15 15:39 | NUR ---
CARE FOR DC ONLY PROVIDED. PT LAYING ON GUPAU, APPEARS TO BE SLEEPING, AROUSES TO NAME. PT DEMANDING AN "MRI OF MY FACE. ITS SHOULDNT BE HURTING LIKE THIS" DISCUSSED WITH MD. PER MD, MRI NOT WARRENTED. PT INFORMED OF THIS INFORMATION. PT STATES "THIS IS BULLSHIT, YOU ARENT HELPING ME. FUCKERS DONT WANT TO DO YOUR JOB" PT RIPPED PULSE OX OFF FINGER. PT SIGNED DC INSTRUCTIONS WITH ONE LINE ACROSS PAGE. PT GETTING DRESSED.
--- NOTE | 2018-05-15 15:46 | NUR ---
PT LEFT WITH RX, LEFT DC INSTRUCTIONS AT BEDSIDE.
== END 2018-05-15 15:48 | disposition home or self-care (01) ==
LOC: ED 15:31
DX: J01.10 Acute frontal sinusitis, unspecified (principal); F15.10 Other stimulant abuse, uncomplicated
CPT/HCPCS: 36415; 80048; 82040; 85025; 99283

== ENCOUNTER 2018-05-21 14:23 | Emergency (ER) | payer MEDICAID ==
[~2018-05-21] VITALS: Ht 170.2 cm; Wt 59.0 kg
--- NOTE | 2018-05-21 14:38 | NUR ---
PT REFUSING TO STAY IN THE ROOM AND HAS TWICE LEFT TO GO THE THE RESTROOM. EACH TIME NO BM OBSERVED.
--- NOTE | 2018-05-21 14:50 | NUR ---
BENJAMÍN PAC AT BEDSIDE. PT ON BEDSIDE COMMODE PER PT REQUEST. PT UNCOOPERATIVE AND WOULD NOT SIT STILL FOR EKG.
--- NOTE | 2018-05-21 15:30 | NUR ---
PT TO RAD.
[2018-05-21 15:47] VITALS: BP 148/85
--- NOTE | 2018-05-21 15:53 | NUR ---
PT REQUESTED SOME PAIN MEDS AND TYLENOL/IBUPROFEN OFFERED PER BENJAMÍN PAC. PT STATED "IT IS NOT GOING TO WORK." PT BECAME IRATE AND STARTED SWEARING WHEN THIS RN ATTEMPTED TO GO OVER HIS DC INSTRUCTIONS. PT DEMANDED THAT HE HAVE MRI DONE NOW AND WAS NOT "GOING TO LEAVE UNTIL IT IS DONE." SECURITY CALLED AND PT TO ESCORTED OFF PROPERTY.
== END 2018-05-21 16:01 | disposition home or self-care (01) ==
LOC: ED 15:59
DX: B34.9 Viral infection, unspecified (principal); F15.10 Other stimulant abuse, uncomplicated; F11.10 Opioid abuse, uncomplicated; Z72.9 Problem related to lifestyle, unspecified; Z87.19 Personal history of other diseases of the digestive system; Z90.89 Acquired absence of other organs
CPT/HCPCS: 74022; 93005; 99283

== ENCOUNTER 2018-05-31 17:43 | Emergency (ER) | payer MEDICAID ==
[2018-05-31 17:55] VITALS: BP 118/77
[2018-05-31] MEDS ORDERED: ONDANSETRON ODT 4 MG PO ONE (18:00)
--- NOTE | 2018-05-31 18:15 | NUR ---
PT PRESENTED TO ED D/T LEFT CHEST PORT INFECTION. PT STATES PORT WAS TAKEN OUT "ABOUT THREE WEEKS AGO." +NAUSEA. DENIES FEVERS/CHILLS.
[2018-05-31] MEDS ORDERED: ONDANSETRON ODT 4 MG ONE (18:18)
--- NOTE | 2018-05-31 18:20 | NUR ---
PT MEDICATED PER EMAR FOR NAUSEA/VOMITTING.
--- NOTE | 2018-05-31 18:22 | NUR ---
RN PROVIDED PT WITH A PILLOW AND WARM BLANKET. PT RESTLESS IN ROOM. PT DENIES ANY RECENT DRUG ABUSE. PT STATES HAS BEEN "CLEAN FOR A COUPLE MONTHS NOW."
--- NOTE | 2018-05-31 18:46 | NUR ---
ERMD AT BEDSIDE EVALUATING PT.
--- NOTE | 2018-05-31 18:52 | NUR ---
RN FOUND PT IN BATHROOM. PT VOIDED BEFORE RN CAN GET A URINE SAMPLE. RN AMBULATED BACK TO ROOM WITH PT. RN DISCUSSED WITH PT THAT SHE WILL NEED A URINE SAMPLE PER ERMD ORDERS. PT VERBALIZED UNDERSTANDING.
--- NOTE | 2018-05-31 18:53 | NUR ---
REPORT TO MACIEL KULKARNI TO ASSUME PRIMARY CARE OF PT.
[2018-05-31 19:13] LABS: BASOPHILS # (AUTO) 0.03 x10^3/uL (0-0.1); BASOPHILS % (AUTO) 0 % (0-1); EOSINOPHILS # (AUTO) 0.06 x10^3/uL (0-0.4); EOSINOPHILS % (AUTO) 1 % (1-7); LYMPHOCYTES # (AUTO) 1.61 x10^3/uL (1-3.4); LYMPHOCYTES % (AUTO) 17 % (22-44); MD NO; MEAN CORPUSCULAR HEMOGLOBIN 24.1 pg (27.5-34.5); MEAN CORPUSCULAR VOLUME 75.1 fL (81-97); MEAN PLATELET VOLUME 6.2 fL (7.4-10.4); MONOCYTES # (AUTO) 0.74 x10^3/uL (0.2-0.8); MONOCYTES % (AUTO) 8 % (2-9); NEUTROPHILS # (AUTO) 6.92 x10^3/uL (1.8-6.8); NEUTROPHILS % (AUTO) 74 % (42-75); PLATELET COUNT 576 x10^3/uL (130-400); RED BLOOD COUNT 4.97 x10^6/uL (4.38-5.82); RED CELL DISTRIBUTION WIDTH 18.2 % (9.4-14.8)
--- NOTE | 2018-05-31 19:19 | NUR ---
RECEIVED BS REPORT FROM MACIEL BHANDARI AT 1900; PT. WAS WALKING BACK FROM BR WITH STEADY GAIT. PT. WITH ERRATIC BEHAVIOR AND RAPID SPEECH. PT. WAS ABLE TO PROVIDE URINE SAMPLE AT THIS TIME; WALKED TO LAB. PT. SHOUTING "YOU PEOPLE ARE SO STUPID". PT. EXPRESSING ANGER OVER "THE LAST TIME I WAS HERE I ASKED TO FOR MY STOMACH MEDS BUT THE WAS SUCH AN IDIOT THAT HE WROTE FOR THE WRONG MEDS". PT UNABLE TO STATE WHAT MED IS IS TALKING ABOUT. PT. REFUSING TO HAVE MONITORS ON. STATES "I AM ONLY HERE TO GET THE PACKING OUT OF HERE(POINTING TO LEFT UPPER CHEST). DR. CANTU HAD BEEN IN TO SEE PT. AND STATED THAT HE HAD ALREADY TOLD THE PT. THERE IS NO INFECTION/PACKING LEFT IN HEALED SURGICAL INCISION. TINY SCAB NOTED TO END OF INCISION; PT. CONTINUALLY PICKING AT SCAR/SCAB.
[2018-05-31 19:21] LABS: ALANINE AMINOTRANSFERASE 190 U/L (12-78); ALBUMIN 3.6 g/dL (3.4-5.0); ANION GAP 8 mmol/L (5-15); CALCIUM 8.4 mg/dL (8.5-10.1); CHLORIDE 101 mmol/L (98-107)
[2018-05-31 19:24] LABS: ALKALINE PHOSPHATASE 139 U/L (45-117); BILIRUBIN,TOTAL 0.7 mg/dL (0.2-1.0); CREATININE 0.84 mg/dL (0.7-1.3); TOTAL PROTEIN 7.6 g/dL (6.4-8.2)
[2018-05-31 19:38] LABS: AMPHETAMINE SCREEN, URINE Positive (Negative); BARBITURATE SCREEN, URINE Negative (Negative); BENZODIAZEPINE SCREEN, URINE Negative (Negative); CANNABINOID SCREEN, URINE Negative (Negative); COCAINE SCREEN, URINE Negative (Negative); METHADONE SCREEN, URINE Negative (Negative); OPIATE SCREEN, URINE Positive (Negative)
--- NOTE | 2018-05-31 20:06 | NUR ---
PT. TO US VIA [facility] AT THIS TIME.
--- NOTE | 2018-05-31 21:00 | NUR ---
Patient left prior to DC instructions. Patient ambulatory with steady gait.
== END 2018-05-31 21:01 | disposition home or self-care (01) ==
LOC: ED 18:21
DX: K70.10 Alcoholic hepatitis without ascites (principal); F15.10 Other stimulant abuse, uncomplicated; F11.10 Opioid abuse, uncomplicated; R94.5 Abnormal results of liver function studies; F17.200 Nicotine dependence, unspecified, uncomplicated; Z72.9 Problem related to lifestyle, unspecified; Z90.49 Acquired absence of other specified parts of digestive tract
CPT/HCPCS: 36415; 76700; 80053; 80307; 85025; 99284; Q0162

== ENCOUNTER 2018-06-11 08:28 | Inpatient (IN) | payer MEDICAID ==
[~2018-06-11] VITALS: Ht 170.2 cm; Wt 61.0 kg
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
[2018-06-11] MEDS ORDERED: NALOXONE 0.4 MG/ML, 1ML ONE (09:19)
[2018-06-11] MEDS ORDERED: NALOXONE 0.4 MG/ML, 1ML IVPush PRN (09:30)
--- NOTE | 2018-06-11 09:30 | NUR ---
pt medicated per jul. immediately more awake and alert. pt resting on lexx. madhu. vss.
--- NOTE | 2018-06-11 09:32 | NUR ---
pt aware of need for ua. states he cannot provide sample at this time. urinal at bedside.
[2018-06-11 09:33] LABS: ALANINE AMINOTRANSFERASE 100 U/L (12-78); ANION GAP 10 mmol/L (5-15); CALCIUM 8.4 mg/dL (8.5-10.1); CHLORIDE 104 mmol/L (98-107); CREATININE 0.71 mg/dL (0.7-1.3)
[2018-06-11 09:43] LABS: ALKALINE PHOSPHATASE 137 U/L (45-117); BILIRUBIN,TOTAL 0.2 mg/dL (0.2-1.0); TOTAL PROTEIN 7.1 g/dL (6.4-8.2)
[2018-06-11 09:47] LABS: ACETAMINOPHEN < 2 mcg/mL (10-30); SALICYLATE LEVEL < 1.7 mg/dL (2.8-20.0)
[2018-06-11] MEDS ORDERED: CEFTRIAXONE PMX 1GM/50ML 50 ML ONE (09:53)
[2018-06-11] MEDS ORDERED: SODIUM CHLORIDE 0.9% 1,000ML IVBOLUS ONE (10:00)
[2018-06-11] MEDS ORDERED: CEFTRIAXONE PMX 1GM/50ML 50 ML IV ONE (10:00)
--- NOTE | 2018-06-11 10:00 | NUR ---
REPORT GIVEN TO MACIEL ANDERSON.
--- NOTE | 2018-06-11 10:12 | NUR ---
REPORT RECIEVED FROM SURYA ST. PT IS RESTING IN BED, SLIGHTLY DROWSY HOWEVER AWAKES TO VERBAL. PT PROTECTING OWN AIRWAY WELL, PLACED ON MONITORS. LAST NARCAN [phone]. AWAITING BLOOD CULTURES, THEN OK FOR IVABX. VSS. CONT TO MONITOR.
[2018-06-11 10:20] LABS: MEAN CORPUSCULAR HEMOGLOBIN 23.7 pg (27.5-34.5); MEAN CORPUSCULAR HGB CONC 31.1 g/dL (33.2-36.2); MEAN CORPUSCULAR VOLUME 76.3 fL (81-97); MEAN PLATELET VOLUME 7.5 fL (7.4-10.4); PLATELET COUNT 242 x10^3/uL (130-400); RED BLOOD COUNT 5.28 x10^6/uL (4.38-5.82); RED CELL DISTRIBUTION WIDTH 19.2 % (9.4-14.8)
[2018-06-11 10:21] LABS: MD YES
[2018-06-11 10:25] LABS: BAND#(MANUAL) 0.16 x10^3/uL; BANDS%(MANUAL) 2 % (0-7); BASOS#(MANUAL) 0.16 x10^3/uL (0-0.1); BASOS% (MANUAL) 2 % (0-1); LYMPHS% (MANUAL) 21 % (22-44); MONOS#(MANUAL) 0.41 x10^3/uL (0.3-2.7); MONOS% (MANUAL) 5 % (2-9); SEG#(MANUAL) 5.67 x10^3/uL (1.8-6.8); SEGS% (MANUAL) 70 % (42-75)
[2018-06-11 10:27] LABS: <PLATELET ESTIMATE> ADEQUATE; <PLT MORPHOLOGY> NORMAL PLT MORPH; ANISOCYTOSIS 1+; HYPOCHROMIA 1+; MICROCYTOSIS 1+; POLYCHROMASIA 1+
--- NOTE | 2018-06-11 11:06 | NUR ---
PT RESTING IN BED. AROUSES TO VERBAL, PROTECTING AIRWAY WELL. REMAINS ON MONITORS, VSS. 2L VIA MASK TO MAINTAIN SAT >92%. AWAITING ADMIT BED. LAB CALLED AGAIN, PT NEEDS BLOOD CULTURES. WILL CALL AGAIN. URINE SENT TO LAB. CONT TO MONITOR.
--- NOTE | 2018-06-11 11:14 | NUR ---
LAB CALLED AGAIN, TOLD PT STILL NEEDS BLOOD CULTURES DRAWN. STATED WILL SEND SOMEONE.
[2018-06-11] MEDS ORDERED: morphine SULFATE 10 MG/ML, 1ML IVPush PRN (11:30)
[2018-06-11] MEDS ORDERED: GUAIFENESIN/COD200MG-20MG/10ML LIQUID PO PRN (11:30)
[2018-06-11] MEDS ORDERED: ENALAPRILAT 1.25 MG/ML, 2ML IVPush PRN (11:30)
--- NOTE | 2018-06-11 11:48 | NUR ---
U/S AT BEDSIDE. BLOOD CULTURES COMPLETED. IVABX STARTED PER ORDERS. PT REMAINS ON MONITORS, VSS. PT LEVEL OF ADMIT CARE CHANGED TO MED TELE. AWAITING BED. CONT TO MONITOR.
--- NOTE | 2018-06-11 12:16 | NUR ---
PT REFUSING LABS AT THIS TIME. WILL LET PT REST THEN CALL LAB TO TRY AGAIN.
[2018-06-11 12:23] LABS: AMPHETAMINE SCREEN, URINE Positive (Negative); BARBITURATE SCREEN, URINE Negative (Negative); BENZODIAZEPINE SCREEN, URINE Negative (Negative); CANNABINOID SCREEN, URINE Negative (Negative); COCAINE SCREEN, URINE Negative (Negative); METHADONE SCREEN, URINE Negative (Negative); OPIATE SCREEN, URINE Positive (Negative)
[2018-06-11 12:24] LABS: TROPONIN I < 0.015 ng/mL (0.000-0.045)
[2018-06-11] MEDS: NICOTINE 21 MG/24 HR PATCH.TD24 TD SCH (12:30)
[2018-06-11] MEDS: DOXYCYCLINE 100 MG in DEXTROSE 5% 250 ML IV SCH ×2 (12:54→18:10)
[2018-06-11] MEDS: SODIUM CHLORIDE 0.9% 1,000 ML IV SCH (12:54)
[2018-06-11] MEDS: ENOXAPARIN 40 MG/0.4 ML SQ SCH (13:00)
--- NOTE | 2018-06-11 13:11 | NUR ---
PT AGGITATED, STATES HE HAS NAUSEA. ASKED PT ID HE WOULD LIKE SOMETHING FOR NAUSEA, PT REFUSED. PT REMAINS ON MONITORS, VSS. PT ABLE TO BE CALMED BY VERBAL. AWAITING ADMIT BED. CONT TO MONITOR.
[2018-06-11] MEDS: AMPICILLIN/SULBACTAM 1,500 MG in SODIUM CHLORIDE 0.9% 50 ML IV SCH (13:30)
--- NOTE | 2018-06-11 14:29 | NUR ---
PT RESTING IN BED, FOLLOWING DIRECTIONS, ONLY SLIGHTLY AGGITATED WHEN SPOKEN TO. PT REMAINS ON MONITORS, VSS. STILL AWAITING ADMIT BED. CONT TO FOLLOW ORDERS. CONT TO MONITOR.
--- NOTE | 2018-06-11 14:50 | NUR ---
SBAR report received from RN, Moriah.
[2018-06-11] MEDS ORDERED: ASPIRIN 325 MG TABLET PO ONE (15:30)
--- NOTE | 2018-06-11 15:38 | NUR ---
Pt intermittently agitated and then resting on gurney. Pt with intermittent nausea as well, pt refuses any anti-emetics as he states "nothing works." Pt remains on all monitors, sinus tach noted, otherwise VS WNL.
--- NOTE | 2018-06-11 15:50 | NUR ---
Pt up in bed to use urinal. Pt given pillow for comfort, pt repositioned himself and blankets provided for comfort. Pt remains on all monitors, pt placed simple mask back on, remains at 2lpm, O2 sat 97%. Pt requesting to rest at this time.
[2018-06-11 17:54] LABS: TROPONIN I < 0.015 ng/mL (0.000-0.045)
[2018-06-11 18:11] LABS: INTERNATIONAL NORMALIZED RATIO 0.94 (0.93-1.1)
--- NOTE | 2018-06-11 18:13 | NUR ---
Pt medicated per MAR.
[2018-06-11] MEDS ORDERED: ASPIRIN 325 MG TABLET ONE (18:25)
--- NOTE | 2018-06-11 18:37 | NUR ---
Telephone SBAR report called to [facility]. Pt made aware of new room assignment.
[2018-06-11 20:35] LABS: RAPID INFLUENZA A Negative (Negative); RAPID INFLUENZA B Negative (Negative)
[2018-06-11 20:49] VITALS: BP 97/53
[2018-06-12] MEDS: AMPICILLIN/SULBACTAM 1,500 MG in SODIUM CHLORIDE 0.9% 50 ML IV SCH ×2 (00:18→06:00)
[2018-06-12] MEDS: THIAMINE 100MG TABLET PO SCH ×3 (00:18→20:38)
[2018-06-12 00:41] VITALS: BP 122/74
[2018-06-12 05:02] VITALS: BP 97/53
[2018-06-12] MEDS: DOXYCYCLINE 100 MG in DEXTROSE 5% 250 ML IV SCH (05:30)
[2018-06-12] MEDS: SODIUM CHLORIDE 0.9% 1,000 ML IV SCH ×2 (05:40→15:00)
[2018-06-12 06:07] LABS: CHLORIDE 107 mmol/L (98-107)
[2018-06-12 06:14] LABS: ALANINE AMINOTRANSFERASE 65 U/L (12-78); ALBUMIN 2.5 g/dL (3.4-5.0); ALKALINE PHOSPHATASE 122 U/L (45-117); ANION GAP 8 mmol/L (5-15); BILIRUBIN,TOTAL 0.5 mg/dL (0.2-1.0); TOTAL PROTEIN 6.1 g/dL (6.4-8.2)
[2018-06-12 06:23] LABS: BASOPHILS % (AUTO) 0 % (0-1); EOSINOPHILS % (AUTO) 1 % (1-7); LYMPHOCYTES % (AUTO) 24 % (22-44); MD NO; MEAN CORPUSCULAR HGB CONC 31.8 g/dL (33.2-36.2); MEAN CORPUSCULAR VOLUME 75.3 fL (81-97); MEAN PLATELET VOLUME 6.9 fL (7.4-10.4); MONOCYTES # (AUTO) 0.73 x10^3/uL (0.2-0.8); MONOCYTES % (AUTO) 10 % (2-9); NEUTROPHILS # (AUTO) 4.79 x10^3/uL (1.8-6.8); NEUTROPHILS % (AUTO) 65 % (42-75); PLATELET COUNT 368 x10^3/uL (130-400); RED BLOOD COUNT 4.87 x10^6/uL (4.38-5.82); RED CELL DISTRIBUTION WIDTH 18.8 % (9.4-14.8)
[2018-06-12 07:36] VITALS: BP 142/85
[2018-06-12] MEDS: FOLIC ACID 1 MG TABLET PO SCH (08:19)
[2018-06-12] MEDS: ENOXAPARIN 40 MG/0.4 ML SQ SCH (08:20)
[2018-06-12] MEDS: MULTIVITAMIN 1 TABLET PO SCH (08:20)
[2018-06-12] MEDS: AMOXICILLIN/CLAV 875-125MG TABLET PO SCH ×2 (09:00→20:37)
[2018-06-12] MEDS: DOXYCYCLINE 100MG TABLET PO SCH ×2 (09:00→20:37)
[2018-06-12] MEDS: NICOTINE 21 MG/24 HR PATCH.TD24 TD SCH (11:20)
[2018-06-12] MEDS ORDERED: LORazepam 2 MG/ML, 1ML IV PRN ×5 (12:00)
[2018-06-12] MEDS ORDERED: LORazepam 1MG TABLET PO PRN ×4 (12:00)
[2018-06-12] MEDS: LORazepam 0.5MG TABLET PO PRN ×2 (12:16→17:06)
[2018-06-12 13:11] VITALS: BP 119/74
[2018-06-12 19:41] VITALS: BP 133/79
[2018-06-13 00:21] VITALS: BP 129/85
[2018-06-13] MEDS: SODIUM CHLORIDE 0.9% 1,000 ML IV SCH (06:00)
[2018-06-13] MEDS: MULTIVITAMIN 1 TABLET PO SCH (07:39)
[2018-06-13] MEDS: DOXYCYCLINE 100MG TABLET PO SCH (07:39)
[2018-06-13] MEDS: AMOXICILLIN/CLAV 875-125MG TABLET PO SCH (07:39)
[2018-06-13] MEDS: FOLIC ACID 1 MG TABLET PO SCH (07:39)
[2018-06-13] MEDS: THIAMINE 100MG TABLET PO SCH (07:39)
[2018-06-13] MEDS: ENOXAPARIN 40 MG/0.4 ML SQ SCH (07:40)
[2018-06-13 09:16] VITALS: BP 127/87
[2018-06-13] MEDS ORDERED: DOXY100T PO (10:50)
[2018-06-13] MEDS ORDERED: THIA100T67 PO (10:50)
[2018-06-13] MEDS ORDERED: FOLI-17 PO (10:50)
[2018-06-13] MEDS ORDERED: MULT1TAB60 PO (10:50)
[2018-06-13] MEDS ORDERED: AMOX1TAB12 PO (10:50)
[2018-06-13] MEDS: NICOTINE 21 MG/24 HR PATCH.TD24 TD SCH (11:30)
== END 2018-06-13 15:35 | disposition home or self-care (01) | DRG 917 ==
LOC: ED 09:20 → EDIP 09:45 → 4WST 18:41
PROVIDERS: ADMIT Internal Medicine; ATTEND Internal Medicine
DX: T40.1X1A Poisoning by heroin, accidental (unintentional), initial encounter (principal); G92 Toxic encephalopathy; J69.0 Pneumonitis due to inhalation of food and vomit; J96.01 Acute respiratory failure with hypoxia; E44.0 Moderate protein-calorie malnutrition; Y92.89 Other specified places as the place of occurrence of the external cause; R71.8 Other abnormality of red blood cells; K76.0 Fatty (change of) liver, not elsewhere classified; F10.129 Alcohol abuse with intoxication, unspecified; I95.9 Hypotension, unspecified; R73.9 Hyperglycemia, unspecified; F15.10 Other stimulant abuse, uncomplicated; F17.200 Nicotine dependence, unspecified, uncomplicated; Z85.07 Personal history of malignant neoplasm of pancreas
CPT/HCPCS: 36415; 71045; 76700; 80053; 80307; 80329; 83605; 84145; 84484; 85025; 85610; 85730; 86704; 86706; 86708; 86803; 87040; 87340; 87400; 93005; G0378; J0696; J2310; J7060; G0480; J0295; J7030

== ENCOUNTER 2018-07-30 02:53 | Emergency (ER) | payer MEDICAID ==
[~2018-07-30] VITALS: Ht 170.2 cm; Wt 65.0 kg
[~2018-07-30 02:53] MED LIST changes: +AMOX1TAB12 PO; +DOXY100T PO; +FOLI-17 PO; +MULT1TAB60 PO; +THIA100T67 PO
[2018-07-30 02:55] VITALS: BP 113/76
== END 2018-07-30 03:40 | disposition home or self-care (01) ==
LOC: ED 03:32
DX: L03.113 Cellulitis of right upper limb (principal); L03.114 Cellulitis of left upper limb; L02.413 Cutaneous abscess of right upper limb; L02.414 Cutaneous abscess of left upper limb; Z90.89 Acquired absence of other organs
CPT/HCPCS: 99283

== ENCOUNTER 2018-09-15 23:06 | Emergency (ER) | payer MEDICAID ==
[~2018-09-15] VITALS: Ht 175.3 cm; Wt 72.0 kg
[2018-09-15 23:20] VITALS: BP 115/85
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
--- NOTE | 2018-09-16 00:11 | NUR ---
PT APPEARS UNDER THE INFLUENCE OF SUBSTANCES ASKING FOR PENS GLOVES MASKS SECURITY CALLED TO ESCORT PT OUT HE IS DISCHARGED
== END 2018-09-16 00:14 | disposition home or self-care (01) ==
LOC: ED 23:59
DX: L25.9 Unspecified contact dermatitis, unspecified cause (principal); F17.210 Nicotine dependence, cigarettes, uncomplicated
CPT/HCPCS: 99283

== ENCOUNTER 2018-09-21 19:55 | Emergency (ER) | payer MEDICAID ==
[~2018-09-21] VITALS: Ht 170.2 cm; Wt 60.0 kg
[2018-09-21] MEDS ORDERED: LIDOCAINE-MPF 1%, 5ML INFIL ONE (20:00)
--- NOTE | 2018-09-21 20:20 | NUR ---
PT HAS A SWELLING AND A LESION LEFT SHOULDER. PT STATES HE HAD SURGERY ON IT BUT DOESN'T KNOW WHAT WAS DONE SEVERAL MONTHS AGO. 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
--- NOTE | 2018-09-21 20:27 | NUR ---
CRUCIBLE FURNACE TENDER TO ROOM AND PT NOT THERE
--- NOTE | 2018-09-21 20:41 | NUR ---
PT BACK IN ROOM. PT HAD BEEN IN BATHROOM
[2018-09-21] MEDS ORDERED: ONDANSETRON ODT 4 MG ONE (20:52)
[2018-09-21] MEDS ORDERED: ONDANSETRON ODT 4 MG PO ONE (21:00)
[2018-09-21 21:25] VITALS: BP 141/89
[2018-09-21] MEDS ORDERED: BACITRACIN ZINC OINT 500U/GM, 0.9 GM ONE (21:49)
--- NOTE | 2018-09-21 21:57 | NUR ---
pt wound dressed and pt given bacitracin. pt is swearing and very impatient. stating that he hasn't slept in 6 days. pt verbalized understanding of discharge instructions and provided with wound care supplies.
--- NOTE | 2018-09-21 22:00 | NUR ---
pt left prior to recieving discharge papers.
== END 2018-09-21 22:03 | disposition home or self-care (01) ==
LOC: ED 21:57
DX: M25.512 Pain in left shoulder (principal); L24.9 Irritant contact dermatitis, unspecified cause; Z72.9 Problem related to lifestyle, unspecified; F11.20 Opioid dependence, uncomplicated; F15.20 Other stimulant dependence, uncomplicated; F17.200 Nicotine dependence, unspecified, uncomplicated; Z85.07 Personal history of malignant neoplasm of pancreas
CPT/HCPCS: 76882; 99284; Q0162

== ENCOUNTER 2018-09-29 22:48 | Emergency (ER) | payer MEDICAID ==
--- NOTE | 2018-09-29 22:58 | NUR ---
Pt called back for triage. Nilx1.
--- NOTE | 2018-09-29 23:11 | NUR ---
Pt called back for triage. Nilx2.
--- NOTE | 2018-09-29 23:28 | NUR ---
Pt called back for triage. Nilx3.
== END 2018-09-29 23:30 | disposition left against medical advice (07) ==
LOC: ED 23:24
DX: T63.301A Toxic effect of unspecified spider venom, accidental (unintentional), initial encounter (principal); Y93.89 Activity, other specified; Y92.89 Other specified places as the place of occurrence of the external cause; Y99.8 Other external cause status; Z53.21 Procedure and treatment not carried out due to patient leaving prior to being seen by health care provider
CPT/HCPCS: 93005

== ENCOUNTER 2018-10-11 07:52 | Emergency (ER) | payer MEDICAID ==
[~2018-10-11] VITALS: Ht 170.2 cm; Wt 67.3 kg
[2018-10-11 07:55] VITALS: BP 114/64
== END 2018-10-11 09:15 | disposition home or self-care (01) ==
LOC: ED 08:26
DX: L02.413 Cutaneous abscess of right upper limb (principal); L02.414 Cutaneous abscess of left upper limb
CPT/HCPCS: 99283

== ENCOUNTER 2018-10-11 19:37 | Emergency (ER) | payer MEDICAID ==
[~2018-10-11] VITALS: Ht 177.8 cm; Wt 78.0 kg
[2018-10-11 19:40] VITALS: BP 124/67
[2018-10-11] MEDS ORDERED: NALOXONE 0.4 MG/ML, 1ML ONE (19:50)
[2018-10-11] MEDS ORDERED: NALOXONE 0.4 MG/ML, 1ML IVPush ONE (20:00)
[2018-10-11 20:01] LABS: BASOPHILS # (AUTO) 0.02 x10^3/uL (0-0.1); BASOPHILS % (AUTO) 0 % (0-1); EOSINOPHILS # (AUTO) 0.22 x10^3/uL (0-0.4); EOSINOPHILS % (AUTO) 3 % (1-7); LYMPHOCYTES # (AUTO) 1.17 x10^3/uL (1-3.4); LYMPHOCYTES % (AUTO) 17 % (22-44); MD NO; MEAN CORPUSCULAR HEMOGLOBIN 24.4 pg (27.5-34.5); MEAN CORPUSCULAR VOLUME 78.8 fL (81-97); MEAN PLATELET VOLUME 6.5 fL (7.4-10.4); MONOCYTES # (AUTO) 0.66 x10^3/uL (0.2-0.8); MONOCYTES % (AUTO) 9 % (2-9); NEUTROPHILS # (AUTO) 5.01 x10^3/uL (1.8-6.8); NEUTROPHILS % (AUTO) 71 % (42-75); PLATELET COUNT 465 x10^3/uL (130-400); RED BLOOD COUNT 4.53 x10^6/uL (4.38-5.82); RED CELL DISTRIBUTION WIDTH 21.8 % (9.4-14.8)
--- NOTE | 2018-10-11 20:07 | NUR ---
PT MEDICATED WITH NARCAN ORDERED AND NOW UP WALKING AROUND THE ROOM.
[2018-10-11 20:14] LABS: ALANINE AMINOTRANSFERASE 48 U/L (12-78); ALBUMIN 3.3 g/dL (3.4-5.0); ANION GAP 6 mmol/L (5-15); CALCIUM 8.4 mg/dL (8.5-10.1); CHLORIDE 107 mmol/L (98-107)
[2018-10-11 20:17] LABS: ALKALINE PHOSPHATASE 108 U/L (45-117); BILIRUBIN,TOTAL 0.1 mg/dL (0.2-1.0); TOTAL PROTEIN 7.2 g/dL (6.4-8.2)
== END 2018-10-11 20:36 | disposition home or self-care (01) ==
LOC: ED 20:20
DX: T40.3X1A Poisoning by methadone, accidental (unintentional), initial encounter (principal); R40.20 Unspecified coma; Y92.89 Other specified places as the place of occurrence of the external cause
CPT/HCPCS: 36415; 80053; 85025; 93005; 96374; 99284; J2310

== ENCOUNTER 2018-10-13 00:38 | Emergency (ER) | payer MEDICAID ==
[~2018-10-13] VITALS: Ht 170.2 cm; Wt 65.2 kg
[2018-10-13 00:41] VITALS: BP 116/69
--- NOTE | 2018-10-13 02:06 | NUR ---
BUSINESS SYSTEM CONSULTANT: CALLED FOR PIT BY SHANNON STACY. PT IS OUT SMOKING AT THIS TIME. NILX1
--- NOTE | 2018-10-13 02:20 | NUR ---
CARDING SUPERVISOR: NOT IN LOBBY
[2018-10-13] MEDS ORDERED: CLINDAMYCIN 300 MG CAPSULE PO ONE (02:30)
[2018-10-13] MEDS ORDERED: ACETAMINOPHEN 325 MG TABLET PO ONE (02:30)
--- NOTE | 2018-10-13 02:30 | NUR ---
Pt to rm from lobby. Care assumed.
[2018-10-13] MEDS ORDERED: CLINDAMYCIN 300 MG CAPSULE ONE (03:07)
[2018-10-13] MEDS ORDERED: ACETAMINOPHEN 325 MG TABLET ONE (03:07)
--- NOTE | 2018-10-13 03:10 | NUR ---
Pt medicated per JUL. To be d/c home.
== END 2018-10-13 03:37 | disposition home or self-care (01) ==
LOC: ED 03:27
DX: L02.413 Cutaneous abscess of right upper limb (principal); L02.414 Cutaneous abscess of left upper limb; F17.210 Nicotine dependence, cigarettes, uncomplicated
CPT/HCPCS: 99283

== ENCOUNTER 2018-10-31 02:47 | Emergency (ER) | payer MEDICAID ==
[~2018-10-31] VITALS: Ht 170.2 cm; Wt 63.3 kg
--- NOTE | 2018-10-31 02:56 | NUR ---
no answer in lobby
[2018-10-31 02:58] VITALS: BP 120/68
--- NOTE | 2018-10-31 03:15 | NUR ---
assessment made. chart up for MD to see. patient c/o left shoulder abscess x 4 days. patient arrived in ED with IV in placed. possible placed by [facility]. patient states that he get his chemo at [facility].
--- NOTE | 2018-10-31 03:30 | NUR ---
patient wrapped his IV with hospital tape. patient found by this RN and PA getting / stealing bandages and gauzes in the cabinet. patient very defensive when comfronted. security called for assistance.
--- NOTE | 2018-10-31 03:38 | NUR ---
patient tried to leave and geotechnical department manager caught him and was told IV need to be remove before leaving. IV removed by geotechnical department manager. ERP at bedside. patient decided to leave. patient escorted by security outside.
== END 2018-10-31 03:57 | disposition left against medical advice (07) ==
LOC: ED 03:12
DX: L03.113 Cellulitis of right upper limb (principal); L02.414 Cutaneous abscess of left upper limb; F15.10 Other stimulant abuse, uncomplicated; Z72.9 Problem related to lifestyle, unspecified
CPT/HCPCS: 99283

== ENCOUNTER 2018-10-31 04:01 | Emergency (ER) | payer MEDICAID ==
[~2018-10-31] VITALS: Ht 170.2 cm; Wt 71.0 kg
[2018-10-31 04:09] VITALS: BP 141/73
== END 2018-10-31 04:32 | disposition left against medical advice (07) ==
LOC: ED 04:20
DX: Z53.21 Procedure and treatment not carried out due to patient leaving prior to being seen by health care provider (principal)

== ENCOUNTER 2018-11-04 14:45 | Emergency (ER) | payer MEDICAID ==
[~2018-11-04] VITALS: Ht 177.8 cm; Wt 75.0 kg
[2018-11-04 14:46] VITALS: BP 109/61
--- NOTE | 2018-11-04 14:50 | NUR ---
Patient brought in by EMS for alcohol intoxication, unable to ambulate on scene. Per EMS patient initially denied drinking alcohol but later reported he was intoxicated. Patient answers questions appropriately but arrives drowsy, mostly sleeping. Blood glucose on scene 111mg/dL
--- NOTE | 2018-11-04 15:40 | NUR ---
Patient up to use restroom ambulating with steady gait, eloped from restroom. Unable to locate patient in department.
== END 2018-11-04 15:41 | disposition left against medical advice (07) ==
LOC: ED 15:15
DX: F10.229 Alcohol dependence with intoxication, unspecified (principal); Z88.8 Allergy status to other drugs, medicaments and biological substances; Z72.9 Problem related to lifestyle, unspecified; Z85.07 Personal history of malignant neoplasm of pancreas
CPT/HCPCS: 99283

== ENCOUNTER 2018-11-05 16:10 | Emergency (ER) | payer MEDICAID ==
[~2018-11-05] VITALS: Ht 172.7 cm; Wt 70.0 kg
[2018-11-05 16:15] VITALS: BP 130/80
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
--- NOTE | 2018-11-05 17:54 | NUR ---
LATE ENTRY FOR 1700; PT CONTINUES TO SLEEP ON GURNEY. NO ACUTE DISTRESS NOTED. RESPS EQUAL AND UNLABORED. WILL CONTINUE TO MONITOR.
--- NOTE | 2018-11-05 18:49 | NUR ---
LATE ENTRY FOR 1814: PT CONTINUES TO SLEEP ON [facility]. REFUSING VITAL SIGNS AT THIS TIME WILL CONTINUE TO MONITOR.
--- NOTE | 2018-11-05 18:50 | NUR ---
REPORT TO MACIEL LISA.
--- NOTE | 2018-11-05 18:52 | NUR ---
REPORT RECEIVED FROM [facility]IC ST.
--- NOTE | 2018-11-05 18:53 | NUR ---
Patient/Caregiver given discharge instructions and they have confirmed that they understand the instructions. Patient ambulatory with steady gait. PT LEFT WITH ALL PERSONAL BELONGINGS.
--- NOTE | 2018-11-05 18:54 | NUR ---
PT REFUSED TO TAKE D/C PAPERWORK.
== END 2018-11-05 18:55 | disposition home or self-care (01) ==
LOC: ED 16:39
DX: F10.129 Alcohol abuse with intoxication, unspecified (principal)
CPT/HCPCS: 99283

== ENCOUNTER 2018-11-07 17:47 | Emergency (ER) | payer MEDICAID ==
[~2018-11-07] VITALS: Ht 175.3 cm; Wt 63.7 kg
[2018-11-07 17:58] VITALS: BP 113/64
--- NOTE | 2018-11-07 19:07 | NUR ---
REPORT FROM THAI ASSUMED CARE OF PT AT THIS TIME
--- NOTE | 2018-11-07 19:18 | NUR ---
Patient/Caregiver given discharge instructions and they have confirmed that they understand the instructions. Patient ambulatory with steady gait.
== END 2018-11-07 19:19 | disposition home or self-care (01) ==
LOC: ED 19:13
DX: R41.82 Altered mental status, unspecified (principal); F10.129 Alcohol abuse with intoxication, unspecified; F17.200 Nicotine dependence, unspecified, uncomplicated
CPT/HCPCS: 99284

== ENCOUNTER 2018-11-16 17:28 | Emergency (ER) | payer MEDICAID ==
[~2018-11-16] VITALS: Ht 162.6 cm; Wt 70.0 kg
--- NOTE | 2018-11-16 17:30 | NUR ---
PT WILL NOT FOLLOW COMMANDS OR ANSWER QUESTIONS. PT WAKES TO STERNAL RUB. VSS. NAD.
[2018-11-16 17:52] VITALS: BP 118/68
[2018-11-16] MEDS ORDERED: NALOXONE 0.4 MG/ML, 1ML ONE (18:04)
--- NOTE | 2018-11-16 18:15 | NUR ---
PT GOT OUT OF BED AND REFUSES TO FOLLOW COMMANDS. PT WALKS OUT ER EXIT AND TOWARDS HOSPITAL EXIT. PT STOPPED SO WE COULD REMOVE HIS IV. PT STEADY ON FEET BUT UNCOOPERATIVE.
[2018-11-16] MEDS ORDERED: NALOXONE 0.4 MG/ML, 1ML IVPush PRN (18:30)
== END 2018-11-16 18:23 | disposition left against medical advice (07) ==
LOC: ED 18:17
DX: F10.120 Alcohol abuse with intoxication, uncomplicated (principal); Z90.89 Acquired absence of other organs
CPT/HCPCS: 99283

== ENCOUNTER 2018-11-18 18:07 | Emergency (ER) | payer MEDICAID ==
[~2018-11-18] VITALS: Ht 177.8 cm; Wt 80.0 kg
[2018-11-18 18:44] VITALS: BP 127/83
--- NOTE | 2018-11-18 19:23 | NUR ---
PT SCOOTED TO END OF BED, PULLED OFF PULSE OX AND CARDIAC LEADS AND NASAL CANNULA, LAID BACK DOWN. AT BEDSIDE.
== END 2018-11-18 19:44 | disposition left against medical advice (07) ==
LOC: ED 19:38 → MERGE 19:38 → EDBD 19:38 → ED 19:44
DX: F10.129 Alcohol abuse with intoxication, unspecified (principal); F11.129 Opioid abuse with intoxication, unspecified; F17.210 Nicotine dependence, cigarettes, uncomplicated
CPT/HCPCS: 99283

== ENCOUNTER 2018-11-18 22:31 | Emergency (ER) | payer MEDICAID ==
[~2018-11-18] VITALS: Ht 175.3 cm; Wt 70.0 kg
[2018-11-18 22:39] VITALS: BP 100/59
--- NOTE | 2018-11-18 22:48 | NUR ---
lety. report received from ems. possibly passed out outside today. pt denies to talk. pt's aox4 by ems. pt's spo2 was 85's%. it's 92% with 3L here. bp/spo2 monitors in place. edmd at bedside to evaluate.
--- NOTE | 2018-11-18 22:56 | NUR ---
pt has hx of mrsa. contact precaution placed.
--- NOTE | 2018-11-19 00:09 | NUR ---
PT GIVEN DC INSTRUCTIONS. PT AMB TO DC WITH STEADY GAIT WITH SECURITY. NO ACUTE DISTRESS AT DC.
== END 2018-11-19 00:09 | disposition home or self-care (01) ==
LOC: ED 22:38
DX: F10.220 Alcohol dependence with intoxication, uncomplicated (principal); Z72.9 Problem related to lifestyle, unspecified; F17.200 Nicotine dependence, unspecified, uncomplicated
CPT/HCPCS: 99283

== ENCOUNTER 2018-11-25 01:39 | Emergency (ER) | payer MEDICAID ==
[~2018-11-25] VITALS: Ht 170.2 cm; Wt 60.8 kg
[2018-11-25 01:43] VITALS: BP 123/66
--- NOTE | 2018-11-25 01:50 | NUR ---
PT PLACED IN ROOM. PT C/O NAUSEA AND VOMITING PAST FEW DAYS. PT STATES HE HASNT HAD ANY ALCOHOL IN 3 DAYS. PT ALSO C/O R WRIST PAIN AND SWELLING. PT GIVEN PILLOW AND CALL LIGHT WITHIN REACH. WILL CONTINUE TO MONITOR.
[2018-11-25] MEDS ORDERED: ONDANSETRON ODT 4 MG ONE (02:06)
[2018-11-25] MEDS ORDERED: ONDANSETRON ODT 4 MG PO ONE (02:30)
[2018-11-25 02:42] LABS: ALANINE AMINOTRANSFERASE 116 U/L (12-78); ALBUMIN 3.8 g/dL (3.4-5.0); ANION GAP 11 mmol/L (5-15); CALCIUM 9.2 mg/dL (8.5-10.1); CHLORIDE 101 mmol/L (98-107); CREATININE 0.99 mg/dL (0.7-1.3)
[2018-11-25 02:44] LABS: ALKALINE PHOSPHATASE 122 U/L (45-117); BILIRUBIN,TOTAL 0.5 mg/dL (0.2-1.0); TOTAL PROTEIN 7.7 g/dL (6.4-8.2)
[2018-11-25] MEDS ORDERED: NEOSPORIN OINT. PKT 1 PACKET ONE (02:59)
--- NOTE | 2018-11-25 03:14 | NUR ---
DRESSING APPLIED TO R WRIST. PT TOLERATED WELL AND INSTRUCTIONS GIVEN FOR CARE. PT VERBS UNDERSTANDING.
--- NOTE | 2018-11-25 03:54 | NUR ---
Patient/Caregiver given discharge instructions and they have confirmed that they understand the instructions. Patient ambulatory with steady gait.
== END 2018-11-25 03:56 | disposition home or self-care (01) ==
LOC: ED 02:07
DX: L03.113 Cellulitis of right upper limb (principal); R11.10 Vomiting, unspecified
CPT/HCPCS: 36415; 80053; 80307; 99283; Q0162

== ENCOUNTER 2018-11-28 23:55 | Emergency (ER) | payer MEDICAID ==
[~2018-11-28] VITALS: Ht 177.8 cm; Wt 70.0 kg
[2018-11-29 03:57] VITALS: BP 106/47
== END 2018-11-29 04:48 | disposition home or self-care (01) ==
LOC: ED 11-29 00:14
DX: F10.220 Alcohol dependence with intoxication, uncomplicated (principal); R41.82 Altered mental status, unspecified; Z71.41 Alcohol abuse counseling and surveillance of alcoholic
CPT/HCPCS: 36415; 70450; 80048; 80307; 82040; 85025; 96374; 99284; J2310

== ENCOUNTER 2018-12-10 14:22 | Inpatient (IN) | payer SELFPAY ==
[~2018-12-10] VITALS: Ht 177.8 cm; Wt 63.0 kg
[2018-12-16 08:11] VITALS: BP 112/70
== END 2018-12-16 13:05 | disposition left against medical advice (07) | DRG 208 ==
LOC: EDBD → ED 16:29 → MERGE 16:30 → CCU 16:30 → ED 16:47 → 3NW 12-14 10:09 → 3NE 12-15 18:11
PROVIDERS: ADMIT Internal Medicine; ATTEND Internal Medicine
PROC: 5A1945Z Respiratory Ventilation, 24-96 Consecutive Hours (ICD-10-PCS; principal; 2018-12-10)
PROC: 0BH17EZ Insertion of Endotracheal Airway into Trachea, Via Natural or Artificial Opening (ICD-10-PCS; 2018-12-10)
PROC: 0T9B70Z Drainage of Bladder with Drainage Device, Via Natural or Artificial Opening (ICD-10-PCS; 2018-12-10)
DX: J96.00 Acute respiratory failure, unspecified whether with hypoxia or hypercapnia (principal); G92 Toxic encephalopathy; J69.0 Pneumonitis due to inhalation of food and vomit; E87.0 Hyperosmolality and hypernatremia; F10.239 Alcohol dependence with withdrawal, unspecified; Z99.11 Dependence on respirator [ventilator] status; E87.3 Alkalosis; B19.20 Unspecified viral hepatitis C without hepatic coma; D50.9 Iron deficiency anemia, unspecified; F10.229 Alcohol dependence with intoxication, unspecified; Z53.21 Procedure and treatment not carried out due to patient leaving prior to being seen by health care provider; F11.90 Opioid use, unspecified, uncomplicated; J32.9 Chronic sinusitis, unspecified; Z59.0 Homelessness
CPT/HCPCS: 36415; 36600; 87806; 99285; J3490; J7620; 70450; 71045; 80048; 80053; 80074; 80307; 81003; 82140; 82550; 82728; 82803; 82962; 83540; 83550; 83605; 83690; 83735; 83880; 84100; 84443; 84478; 84484; 85025; 85610; 87040; 87070; 87077; 87081; 87186; 87205; 87521; 93005; 94002; 94003; 94640; G0378; J0295; J0696; J1650; J1756; J2250; J2405; J2560; J2704; J3370; J3411; J3475; J3480; J7060; C9113; G0475; J0330; J1815; J2060; J7030; J7040; J7050

== ENCOUNTER 2018-12-16 21:37 | Emergency (ER) | payer MEDICAID ==
[~2018-12-16] VITALS: Ht 170.2 cm; Wt 60.1 kg
[2018-12-16 21:39] VITALS: BP 165/126
== END 2018-12-16 22:50 ==
LOC: ED 22:44
DX: M25.511 Pain in right shoulder (principal); Z72.9 Problem related to lifestyle, unspecified
CPT/HCPCS: 99281

== ENCOUNTER 2018-12-18 05:51 | Inpatient (IN) | payer MEDICAID ==
[~2018-12-18] VITALS: Ht 170.2 cm; Wt 62.9 kg
[2018-12-20 09:42] VITALS: BP 107/66
== END 2018-12-20 11:12 | disposition home or self-care (01) | DRG 683 ==
LOC: ED 06:06 → EDIP 09:09 → 3NE 10:17 → DCLOUNGE 12-20 11:03
PROVIDERS: ADMIT Internal Medicine; ATTEND Internal Medicine
DX: N17.9 Acute kidney failure, unspecified (principal); E87.1 Hypo-osmolality and hyponatremia; F11.20 Opioid dependence, uncomplicated; K86.1 Other chronic pancreatitis; B19.20 Unspecified viral hepatitis C without hepatic coma; D50.9 Iron deficiency anemia, unspecified; E83.39 Other disorders of phosphorus metabolism; E86.0 Dehydration; E86.1 Hypovolemia; K70.9 Alcoholic liver disease, unspecified; R45.850 Homicidal ideations; Z59.0 Homelessness; Z85.07 Personal history of malignant neoplasm of pancreas; Z90.411 Acquired partial absence of pancreas; Z91.14 Patient's other noncompliance with medication regimen; Z90.89 Acquired absence of other organs; Z91.012 Allergy to eggs; Z88.8 Allergy status to other drugs, medicaments and biological substances; Z91.018 Allergy to other foods; Z79.84 Long term (current) use of oral hypoglycemic drugs
CPT/HCPCS: 36415; 71045; 76700; 80048; 80053; 81003; 82436; 82570; 83690; 83735; 83935; 84100; 84133; 84300; 85025; 99285; G0378; J1644; J2405; J0500; J2270; J7030

== ENCOUNTER 2019-03-04 06:14 | Emergency (ER) | payer MEDICAID ==
[~2019-03-04] VITALS: Ht 170.2 cm; Wt 59.2 kg
[~2019-03-04 06:14] MED LIST changes: +BUPR1FIL7 PO; +DICY10AM2 PO; +DOXY100C15 PO; +FERR-51 PO; +GABA300C10 PO; +HYDR25CA PO; +LEVO750T6 PO; +MULT-257 PO; +OMEP-110 PO; +SUCR1ORA5 PO; +TRAZ50TA66 PO
[2019-03-04 06:18] VITALS: BP 122/73
--- NOTE | 2019-03-04 06:47 | NUR ---
SBAR HAND-OFF REPORT RECEIVED FROM MACIEL NEGRETE. ASSUMING CARE OF PATIENT.
== END 2019-03-04 08:03 | disposition home or self-care (01) ==
LOC: ED 06:36
DX: R68.84 Jaw pain (principal); R21 Rash and other nonspecific skin eruption; F17.200 Nicotine dependence, unspecified, uncomplicated
CPT/HCPCS: 99282

== ENCOUNTER 2019-04-26 18:59 | Emergency (ER) | payer MEDICAID ==
[~2019-04-26] VITALS: Ht 170.2 cm; Wt 66.0 kg
[2019-04-26 19:22] VITALS: BP 131/44
[2019-04-26] MEDS ORDERED: NALOXONE 0.4 MG/ML, 1ML IVPush PRN (20:00)
[2019-04-26] MEDS ORDERED: NALOXONE 1 MG/ML, 2ML ONE (20:22)
--- NOTE | 2019-04-26 20:29 | NUR ---
PT NOT IN ROOM, PT FOUND IN BATHROOM IN HALLWAY WITH A NEEDLE ON THE GROUND. RN AND PA ATTEMPTING TO WALK PT OUT OF ER WHEN PT STARTED VOMITTING. PT GIVE 1MG NARCAN IM AND BROUGHT BACK TO ROOM VIA WHEELCHAIR.
[2019-04-26] MEDS ORDERED: NALOXONE 0.4 MG/ML, 1ML IM ONE (20:30)
--- NOTE | 2019-04-26 20:36 | NUR ---
PT WALKED OUT OF ED JUST ERMD WAS WALKING INTO EVAL PT. PT ELOPED
== END 2019-04-26 20:38 | disposition left against medical advice (07) ==
LOC: ED 19:20
DX: R11.2 Nausea with vomiting, unspecified (principal); R19.7 Diarrhea, unspecified; F10.10 Alcohol abuse, uncomplicated; F17.210 Nicotine dependence, cigarettes, uncomplicated; Z90.89 Acquired absence of other organs; Z72.9 Problem related to lifestyle, unspecified; Y90.9 Presence of alcohol in blood, level not specified
CPT/HCPCS: 96372; 99283; J2310

== ENCOUNTER 2019-04-30 14:34 | Emergency (ER) | payer MEDICAID ==
[~2019-04-30] VITALS: Ht 167.6 cm; Wt 65.0 kg
[2019-04-30 14:47] VITALS: BP 112/86
--- NOTE | 2019-04-30 15:00 | NUR ---
PT AMBULATORY TO THE RESTROOM WITH A STEADY GAIT.
--- NOTE | 2019-04-30 15:01 | NUR ---
PT ELOPED. SECURITY NOTIFIED.
== END 2019-04-30 15:45 | disposition left against medical advice (07) ==
LOC: ED 15:30
DX: Z53.21 Procedure and treatment not carried out due to patient leaving prior to being seen by health care provider (principal)

== ENCOUNTER 2019-05-03 05:13 | Inpatient (IN) | payer MEDICAID ==
[~2019-05-03] VITALS: Ht 170.2 cm; Wt 67.6 kg
--- NOTE | 2019-05-03 05:20 | NUR ---
pt bib [facility] from [email or web address]. pt was found to be drowsy, but called 911 c/o n/v and worsening shoulder abscess. pt changed into gown in [facility] upon arrival to [facility] ed. pt attached to vs machines. vss at this time. pt denies any etoh or substance abuse upon arrival, but later admits to oral ingestion of morphine and hydrocodone mix. call light is within reach. awaiting erp at this time for pt history and assessment. pt educated on er process and verbalizes understanding.
[2019-05-03] MEDS ORDERED: ONDANSETRON 2MG/ML, 2ML ONE (05:48)
[2019-05-03] MEDS ORDERED: NALOXONE 0.4 MG/ML, 1ML ONE ×3 (05:48→07:50)
[2019-05-03] MEDS ORDERED: ONDANSETRON 2MG/ML, 2ML IVPush ONE (06:00)
[2019-05-03] MEDS ORDERED: SODIUM CHLORIDE 0.9% 1,000ML IVBOLUS ONE (06:00)
[2019-05-03] MEDS ORDERED: NALOXONE 0.4 MG/ML, 1ML IVPush ONE ×3 (06:00→08:00)
[2019-05-03] MEDS ORDERED: SODIUM CHLORIDE FLUSH 10ML SYR IVF ONE (06:00)
--- NOTE | 2019-05-03 06:01 | NUR ---
pt medicated per mar. lab at bs. pt refusing labs at this time. dr. mota is aware.
--- NOTE | 2019-05-03 06:56 | NUR ---
BEDSIDE REPORT FROM JORDANA ST, PT SLEEPING IN [facility] ON 5LNC, SPO2 98%, EQUAL CHEST RISE AND FALL. O2 TURNED OFF FOR RA SAT%. IVF COMPLETE.
--- NOTE | 2019-05-03 07:01 | NUR ---
PTS SPO2 DROPPED TO 73% ON RA. PROVIDER NOTIFIED. NO ADDITIONAL NARCAN ORDERED. PT TO BE DISCHARGED WHEN RA SPO2 >93%. PT PLACED ON END TIDAL CO2 MONITOR.
--- NOTE | 2019-05-03 07:59 | NUR ---
PT MEDICATED PER EMAR. PILLOW AND BLANKET AND URINAL PROVIDED. PT HAS NO COMPLAINTS AT THIS TIME. JUICE PROVIDED. VS STABLE.
--- NOTE | 2019-05-03 09:04 | NUR ---
MD NOTIFIED OF PTS CONTINUED ETCO2 80 DESPITE ADDITIONAL DOSES OF NARCAN. ABG ORDERED. PT SPO2 96% ON 2L NC, PT AROUSABLE BUT DROWSY/LETHARGIC. AGREES TO ABG.
[2019-05-03 09:36] LABS: MEAN CORPUSCULAR HEMOGLOBIN 21.4 pg (27.5-34.5); MEAN CORPUSCULAR HGB CONC 30.1 g/dL (33.2-36.2); MEAN CORPUSCULAR VOLUME 71.4 fL (81-97); MEAN PLATELET VOLUME 6.2 fL (7.4-10.4); PLATELET COUNT 712 x10^3/uL (130-400); RED BLOOD COUNT 3.88 x10^6/uL (4.38-5.82)
[2019-05-03 09:48] LABS: ALANINE AMINOTRANSFERASE 23 U/L (12-78); ALBUMIN 2.7 g/dL (3.4-5.0); ANION GAP 4 mmol/L (5-15); CALCIUM 7.5 mg/dL (8.5-10.1); CHLORIDE 109 mmol/L (98-107)
[2019-05-03 09:51] LABS: ALKALINE PHOSPHATASE 101 U/L (45-117); BILIRUBIN,TOTAL 0.1 mg/dL (0.2-1.0); TOTAL PROTEIN 6.3 g/dL (6.4-8.2)
--- NOTE | 2019-05-03 10:02 | NUR ---
PTS SPO2 77% ON RA, NOTIFIED. TO HAVE CXR THEN POSS ADMISSION.
[2019-05-03 10:29] LABS: MD YES
[2019-05-03 10:32] LABS: BAND#(MANUAL) 0.14 x10^3/uL; BANDS%(MANUAL) 2 % (0-7); LYMPH#(MANUAL) 1.09 x10^3/uL (1-3.4); LYMPHS% (MANUAL) 16 % (22-44); MONOS#(MANUAL) 0.61 x10^3/uL (0.3-2.7); MONOS% (MANUAL) 9 % (2-9); SEG#(MANUAL) 4.96 x10^3/uL (1.8-6.8); SEGS% (MANUAL) 73 % (42-75)
[2019-05-03 10:34] LABS: ANISOCYTOSIS 1+; MICROCYTOSIS 1+
[2019-05-03 10:35] LABS: <PLATELET ESTIMATE> INCREASED; <PLT MORPHOLOGY> NORMAL PLT MORPH; HYPOCHROMIA 1+; OVALOCYTES 1+
--- NOTE | 2019-05-03 11:02 | NUR ---
AT BEDSIDE, WOULD LIKE STOOL SAMPLE FROM PT. PT TO BE ADMITTED.
[2019-05-03] MEDS: SODIUM CHLORIDE 0.9% 1,000 ML IV SCH ×2 (11:50→20:27)
--- NOTE | 2019-05-03 11:56 | NUR ---
PT UNABLE TO PROVIDE STOOL SAMPLE
--- NOTE | 2019-05-03 11:57 | NUR ---
ADMITTING PROVIDER AT BEDSIDE.
[2019-05-03] MEDS ORDERED: ONDANSETRON 2MG/ML, 2ML IVPush PRN (12:00)
[2019-05-03] MEDS ORDERED: ACETAMINOPHEN 325 MG TABLET PO PRN (12:00)
[2019-05-03] MEDS ORDERED: HEPARIN 5,000 UNITS/ML, 1ML SQ SCH (12:00)
--- NOTE | 2019-05-03 12:08 | NUR ---
REPORT TO ELIAS ST
[2019-05-03 12:32] VITALS: BP 120/66
[2019-05-03 13:02] VITALS: BP 120/66
[2019-05-03] MEDS: NICOTINE 14MG/24 HR PATCH.TD24 TD SCH (13:17)
[2019-05-03 14:37] VITALS: BP 120/66
[2019-05-03 19:30] LABS: AMPHETAMINE SCREEN, URINE Negative (Negative); BARBITURATE SCREEN, URINE Negative (Negative); BENZODIAZEPINE SCREEN, URINE Negative (Negative); CANNABINOID SCREEN, URINE Negative (Negative); COCAINE SCREEN, URINE Negative (Negative); METHADONE SCREEN, URINE Negative (Negative); OPIATE SCREEN, URINE Positive (Negative)
[2019-05-03 19:49] VITALS: BP 132/79
[2019-05-03] MEDS ORDERED: MAALOX/HYOSCYAMINE/LIDOCAINE 45 ML BTL PO ONE (20:30)
[2019-05-04 00:55] VITALS: BP 124/68
[2019-05-04] MEDS: SODIUM CHLORIDE 0.9% 1,000 ML IV SCH ×2 (03:30→12:07)
[2019-05-04 05:29] LABS: BASOPHILS # (AUTO) 0.01 x10^3/uL (0-0.1); BASOPHILS % (AUTO) 0 % (0-1); EOSINOPHILS # (AUTO) 0.23 x10^3/uL (0-0.4); EOSINOPHILS % (AUTO) 3 % (1-7); LYMPHOCYTES # (AUTO) 2.03 x10^3/uL (1-3.4); LYMPHOCYTES % (AUTO) 30 % (22-44); MD NO; MEAN CORPUSCULAR HEMOGLOBIN 21.8 pg (27.5-34.5); MEAN CORPUSCULAR HGB CONC 30.2 g/dL (33.2-36.2); MEAN CORPUSCULAR VOLUME 72.1 fL (81-97); MEAN PLATELET VOLUME 6.4 fL (7.4-10.4); MONOCYTES # (AUTO) 0.44 x10^3/uL (0.2-0.8); MONOCYTES % (AUTO) 7 % (2-9); NEUTROPHILS # (AUTO) 4.07 x10^3/uL (1.8-6.8); NEUTROPHILS % (AUTO) 60 % (42-75); PLATELET COUNT 568 x10^3/uL (130-400); RED BLOOD COUNT 4.01 x10^6/uL (4.38-5.82); RED CELL DISTRIBUTION WIDTH 19.7 % (9.4-14.8)
[2019-05-04 05:43] LABS: ANION GAP 4 mmol/L (5-15); CALCIUM 8.3 mg/dL (8.5-10.1); CHLORIDE 105 mmol/L (98-107)
[2019-05-04 05:44] LABS: CREATININE 0.61 mg/dL (0.7-1.3)
[2019-05-04 08:05] VITALS: BP 150/89
[2019-05-04] MEDS: NICOTINE 14MG/24 HR PATCH.TD24 TD SCH (12:08)
== END 2019-05-04 13:52 | disposition home or self-care (01) | DRG 391 ==
LOC: ED 05:38 → EDIP 11:31 → 4WST 12:27
PROVIDERS: ADMIT Internal Medicine; ATTEND Internal Medicine
DX: R11.2 Nausea with vomiting, unspecified (principal); J96.01 Acute respiratory failure with hypoxia; F11.20 Opioid dependence, uncomplicated; L02.413 Cutaneous abscess of right upper limb; F10.10 Alcohol abuse, uncomplicated; Z85.07 Personal history of malignant neoplasm of pancreas; Z91.19 Patient's noncompliance with other medical treatment and regimen; Z91.012 Allergy to eggs; Z88.8 Allergy status to other drugs, medicaments and biological substances; Z91.018 Allergy to other foods
CPT/HCPCS: 36415; 36600; 71045; 80048; 80053; 80307; 82803; 83735; 84100; 85014; 85018; 85025; 93005; 99291; G0378; J1644; J2310; J2405; J7030

== ENCOUNTER 2019-05-04 19:27 | Emergency (ER) | payer MEDICAID ==
[~2019-05-04] VITALS: Ht 172.7 cm; Wt 70.0 kg
[2019-05-04 19:39] VITALS: BP 113/76
[2019-05-04 20:19] LABS: ALANINE AMINOTRANSFERASE 21 U/L (12-78); ALBUMIN 2.9 g/dL (3.4-5.0); ANION GAP 7 mmol/L (5-15); CHLORIDE 111 mmol/L (98-107); CREATININE 0.71 mg/dL (0.7-1.3)
[2019-05-04 20:24] LABS: ALKALINE PHOSPHATASE 115 U/L (45-117); BILIRUBIN,TOTAL 0.1 mg/dL (0.2-1.0); TOTAL PROTEIN 7.1 g/dL (6.4-8.2)
[2019-05-04 20:50] LABS: BASOPHILS # (AUTO) 0.31 x10^3/uL (0-0.1); BASOPHILS % (AUTO) 4 % (0-1); EOSINOPHILS # (AUTO) 0.12 x10^3/uL (0-0.4); EOSINOPHILS % (AUTO) 2 % (1-7); LYMPHOCYTES # (AUTO) 2.54 x10^3/uL (1-3.4); LYMPHOCYTES % (AUTO) 35 % (22-44); MD SCAN; MEAN CORPUSCULAR HEMOGLOBIN 21.7 pg (27.5-34.5); MEAN CORPUSCULAR HGB CONC 30.2 g/dL (33.2-36.2); MEAN CORPUSCULAR VOLUME 71.9 fL (81-97); MEAN PLATELET VOLUME 6.2 fL (7.4-10.4); MONOCYTES # (AUTO) 0.36 x10^3/uL (0.2-0.8); MONOCYTES % (AUTO) 5 % (2-9); NEUTROPHILS # (AUTO) 4.01 x10^3/uL (1.8-6.8); NEUTROPHILS % (AUTO) 55 % (42-75); PLATELET COUNT 618 x10^3/uL (130-400); RED BLOOD COUNT 4.67 x10^6/uL (4.38-5.82); RED CELL DISTRIBUTION WIDTH 19.7 % (9.4-14.8)
--- NOTE | 2019-05-05 01:01 | NUR ---
TASK RN: PT A&OX4 AND AMBULATORY WITH STEADY GATE. DC EDUCATION PROVIDED, PT DEMONSTRATES UNDERSTANDING. PT AMBULATED STEADILY TO DC WITH RN.
== END 2019-05-05 01:04 | disposition home or self-care (01) ==
LOC: ED 19:32
DX: F10.120 Alcohol abuse with intoxication, uncomplicated (principal); F17.200 Nicotine dependence, unspecified, uncomplicated; Z72.9 Problem related to lifestyle, unspecified
CPT/HCPCS: 36415; 80053; 80307; 85025; 99283

== ENCOUNTER 2019-05-05 21:53 | Emergency (ER) | payer MEDICAID ==
[~2019-05-05] VITALS: Ht 167.6 cm; Wt 60.0 kg
--- NOTE | 2019-05-05 22:00 | NUR ---
BIB [facility] W/ CO ETOH. PT ABLE TO TRANSFER SELF FROM WHEELCHAIR TO GURNEY. NAD NOTED. BP/SPO2 MONITORING IN PLACE.
--- NOTE | 2019-05-05 23:09 | NUR ---
PT RESTING IN GURNEY, ARROUSABLE TO VOICE AND LIGHT PHYSICAL STIM. SPO2 & RR WNL.
[2019-05-05 23:10] VITALS: BP 127/60
--- NOTE | 2019-05-05 23:23 | NUR ---
PT ARROUSABLE AND ASKED TO DRESS SELF. IF NON-COMPLIANT WILL REQUEST SECURITY ASSISTANCE
--- NOTE | 2019-05-05 23:40 | NUR ---
Patient given discharge instructions and they have confirmed that they understand the instructions. Patient ambulatory with steady gait. Belongings with patient.
== END 2019-05-05 23:42 | disposition home or self-care (01) ==
LOC: ED 22:09
DX: F10.120 Alcohol abuse with intoxication, uncomplicated (principal); F11.10 Opioid abuse, uncomplicated; F17.200 Nicotine dependence, unspecified, uncomplicated; Y90.0 Blood alcohol level of less than 20 mg/100 ml
CPT/HCPCS: 99283

== ENCOUNTER 2019-05-15 05:31 | Emergency (ER) | payer MEDICAID ==
[~2019-05-15] VITALS: Ht 167.6 cm; Wt 66.8 kg
[2019-05-15 05:34] VITALS: BP 96/50
--- NOTE | 2019-05-15 05:36 | NUR ---
[place] Pt admits to drinking alcohol tonight. Strong ETOH odor. Pt non ambulatory, awakens to his name being called but only opens eyes briefly and mumbles in response before falling asleep again. Pt positioned for comfort in bed with warm blankets. Continuous oxygen and BP monitors applied, all safety measures observed.
[2019-05-15] MEDS ORDERED: THIAMINE 100 MG/ML, 2ML ONE (05:43)
--- NOTE | 2019-05-15 05:51 | NUR ---
Pt medicated per JUL. Pt remains drowsy, NADN.
[2019-05-15] MEDS ORDERED: THIAMINE 100 MG/ML, 2ML IM ONE (06:00)
--- NOTE | 2019-05-15 07:35 | NUR ---
AMBULATED WITH TECH TO BATHROOM. SNACK PROVIDED
--- NOTE | 2019-05-15 07:47 | NUR ---
DISCHARGE INSTRUCTIONS REVIEWED.
== END 2019-05-15 07:55 | disposition home or self-care (01) ==
LOC: ED 05:48
DX: F10.129 Alcohol abuse with intoxication, unspecified (principal); Y90.0 Blood alcohol level of less than 20 mg/100 ml
CPT/HCPCS: 96372; 99283; J3411

== ENCOUNTER 2019-06-08 02:37 | Emergency (ER) | payer MEDICAID ==
[~2019-06-08] VITALS: Ht 170.2 cm; Wt 65.7 kg
[2019-06-08 02:40] VITALS: BP 136/64
== END 2019-06-08 03:51 | disposition home or self-care (01) ==
LOC: ED 03:04
DX: L98.498 Non-pressure chronic ulcer of skin of other sites with other specified severity (principal); F10.20 Alcohol dependence, uncomplicated; F17.200 Nicotine dependence, unspecified, uncomplicated; F11.20 Opioid dependence, uncomplicated; F15.10 Other stimulant abuse, uncomplicated; G89.29 Other chronic pain; Y90.9 Presence of alcohol in blood, level not specified
CPT/HCPCS: 99281

== ENCOUNTER 2019-06-21 20:21 | Emergency (ER) | payer MEDICAID ==
[~2019-06-21] VITALS: Ht 170.2 cm; Wt 59.0 kg
--- NOTE | 2019-06-21 20:38 | NUR ---
vaishali garza for herion OD. pt was found unresponsive at the care home house he live at. rpd on scene and gave intranasal narcan x2 for a total of 8mg. pt then became responsive, A+Ox4. PT attached to all monitors. warm blankets provided.
[2019-06-21 21:45] VITALS: BP 111/61
--- NOTE | 2019-06-21 22:41 | NUR ---
pt VSS and mental status remained WDL throughout ed stay. pt discharged with a taxi voucher. given clean clothes from donation room.
== END 2019-06-21 22:42 | disposition home or self-care (01) ==
LOC: ED 22:27
DX: T40.1X1A Poisoning by heroin, accidental (unintentional), initial encounter (principal); F11.10 Opioid abuse, uncomplicated; F17.210 Nicotine dependence, cigarettes, uncomplicated; Z72.9 Problem related to lifestyle, unspecified; Y92.9 Unspecified place or not applicable
CPT/HCPCS: 99283

== ENCOUNTER 2019-07-20 19:31 | Emergency (ER) | payer MEDICAID ==
[~2019-07-20] VITALS: Ht 170.2 cm; Wt 60.0 kg
--- NOTE | 2019-07-20 19:49 | NUR ---
called x1 from triage
[2019-07-20 20:03] VITALS: BP 115/58
== END 2019-07-20 20:35 | disposition home or self-care (01) ==
LOC: ED 20:10
DX: L01.00 Impetigo, unspecified (principal); Z85.07 Personal history of malignant neoplasm of pancreas
CPT/HCPCS: 99283

== ENCOUNTER 2019-08-07 07:35 | Emergency (ER) | payer MEDICAID ==
[~2019-08-07] VITALS: Ht 170.2 cm; Wt 58.2 kg
--- NOTE | 2019-08-07 07:55 | NUR ---
Pt to room from triage. Pt states he was diagnosed at [facility] with PNA a week ago, states he has been taking doxycycline but is not getting better. Pt appears very drowsy in triage, states "the antibiotics make me tired." Pt's resp even and unlabored, ambulatory with steady gait. Pt provided hospital gown, instructed to change.
--- NOTE | 2019-08-07 07:58 | NUR ---
Jono ORTEGA at bedside to evaluate pt.
--- NOTE | 2019-08-07 08:42 | NUR ---
Pt resting in bed with eyes closed, resp even and unlabored, NADN.
[2019-08-07 08:51] LABS: MEAN CORPUSCULAR HEMOGLOBIN 19.1 pg (27.5-34.5); MEAN CORPUSCULAR HGB CONC 30.1 g/dL (33.2-36.2); MEAN CORPUSCULAR VOLUME 63.3 fL (81-97); MEAN PLATELET VOLUME 6.1 fL (7.4-10.4); PLATELET COUNT 588 x10^3/uL (130-400); RED BLOOD COUNT 4.63 x10^6/uL (4.38-5.82); RED CELL DISTRIBUTION WIDTH 19.8 % (9.4-14.8)
[2019-08-07 08:54] LABS: ALANINE AMINOTRANSFERASE 26 U/L (12-78); ALBUMIN 2.8 g/dL (3.4-5.0); ANION GAP 7 mmol/L (5-15); CALCIUM 8.4 mg/dL (8.5-10.1); CHLORIDE 105 mmol/L (98-107); CREATININE 0.65 mg/dL (0.7-1.3)
[2019-08-07 08:57] LABS: ALKALINE PHOSPHATASE 96 U/L (45-117); BILIRUBIN,TOTAL < 0.1 mg/dL (0.2-1.0); TOTAL PROTEIN 6.9 g/dL (6.4-8.2)
[2019-08-07 09:11] LABS: MD YES
[2019-08-07 09:15] LABS: EOS#(MANUAL) 0.27 x10^3/uL (0.0-0.4); EOS% (MANUAL) 7 % (1-7); LYMPH#(MANUAL) 1.44 x10^3/uL (1-3.4); LYMPHS% (MANUAL) 38 % (22-44); MONOS#(MANUAL) 0.42 x10^3/uL (0.3-2.7); MONOS% (MANUAL) 11 % (2-9); SEG#(MANUAL) 1.67 x10^3/uL (1.8-6.8); SEGS% (MANUAL) 44 % (42-75)
[2019-08-07 09:16] LABS: ANISOCYTOSIS 2+; MICROCYTOSIS 2+
[2019-08-07 09:17] LABS: <PLATELET ESTIMATE> INCREASED; <PLT MORPHOLOGY> NORMAL PLT MORPH; HYPOCHROMIA 2+; OVALOCYTES 1+; STOMATOCYTES 1+; TARGET CELLS 1+
--- NOTE | 2019-08-07 09:56 | NUR ---
REPORT RECEIVED FROM MACIEL WHELAN. ASSUMED CARE OF PT.
--- NOTE | 2019-08-07 10:09 | NUR ---
Pt resting in bed with eyes closed, resp even and unlabored, NADN.
--- NOTE | 2019-08-07 10:38 | NUR ---
CAT MONAAHN AT BEDSIDE FOR EVAL. PT DOZING ON GURNEY, AWAKENS EASILY TO NAME BEING CALLED. CALL LIGHT WITHIN REACH. PT AO X 4. SKIN PWD. RESP EVEN AND UNLABORED. CALL LIGHT WITHIN REACH. WILL CONT TO MONITOR PT.
[2019-08-07 10:54] VITALS: BP 106/71
== END 2019-08-07 10:59 | disposition home or self-care (01) ==
LOC: ED 07:54
DX: J18.9 Pneumonia, unspecified organism (principal); Z20.828 Contact with and (suspected) exposure to other viral communicable diseases; R06.02 Shortness of breath
CPT/HCPCS: 36415; 71045; 80053; 85025; 87081; 87880; 93005; 99285

== ENCOUNTER 2019-10-18 05:53 | Emergency (ER) | payer MEDICAID ==
[~2019-10-18] VITALS: Ht 167.6 cm; Wt 65.0 kg
[~2019-10-18 05:53] MED LIST changes: +MULT-449 PO; -MULT1TAB60 PO
--- NOTE | 2019-10-18 06:28 | NUR ---
CT DELAY. PT NEED IV/MED.
[2019-10-18] MEDS ORDERED: FAMOTIDINE 20 MG/2 ML IVPush ONE (06:30)
[2019-10-18] MEDS ORDERED: ONDANSETRON 2MG/ML, 2ML IVPush ONE (06:30)
[2019-10-18] MEDS ORDERED: SODIUM CHLORIDE 0.9% 1,000ML IVBOLUS ONE (06:30)
--- NOTE | 2019-10-18 06:30 | NUR ---
PT VOMITING OVER THE FLOOR. PT UNCOOPERATIVE WITH LAB. PT AT RISK FOR FALLS HE IS TRYING TO GET OUT OF BED. ALERT TO VOICE AND ABLE TO SAY NAME. SMELLS OF ETOH.
[2019-10-18] MEDS ORDERED: FAMOTIDINE 20 MG/2 ML ONE (06:47)
[2019-10-18] MEDS ORDERED: ONDANSETRON 2MG/ML, 2ML ONE (06:47)
--- NOTE | 2019-10-18 06:51 | NUR ---
CT DELAY-PT UNCOOPERATIVE.
[2019-10-18 06:52] LABS: ALANINE AMINOTRANSFERASE 31 U/L (12-78); ALBUMIN 3.1 g/dL (3.4-5.0); ANION GAP 13 mmol/L (5-15); CALCIUM 8.7 mg/dL (8.5-10.1); CHLORIDE 109 mmol/L (98-107)
[2019-10-18 06:56] LABS: ALKALINE PHOSPHATASE 123 U/L (45-117); BILIRUBIN,TOTAL 0.2 mg/dL (0.2-1.0); TOTAL PROTEIN 7.4 g/dL (6.4-8.2)
--- NOTE | 2019-10-18 07:08 | NUR ---
REPORT TO MARIA L ST
--- NOTE | 2019-10-18 07:15 | NUR ---
report received from fran deleon.
[2019-10-18 07:38] LABS: MD YES
[2019-10-18 07:40] LABS: MEAN CORPUSCULAR HEMOGLOBIN 20.4 pg (27.5-34.5); MEAN CORPUSCULAR HGB CONC 30.5 g/dL (33.2-36.2); MEAN CORPUSCULAR VOLUME 66.8 fL (81-97); MEAN PLATELET VOLUME 6.7 fL (7.4-10.4); PLATELET COUNT 430 x10^3/uL (130-400); RED BLOOD COUNT 4.82 x10^6/uL (4.38-5.82); RED CELL DISTRIBUTION WIDTH 26.6 % (9.4-14.8)
[2019-10-18 07:42] LABS: EOS#(MANUAL) 0.09 x10^3/uL (0.0-0.4); EOS% (MANUAL) 1 % (1-7); LYMPH#(MANUAL) 1.41 x10^3/uL (1-3.4); LYMPHS% (MANUAL) 15 % (22-44); MONOS#(MANUAL) 0.75 x10^3/uL (0.3-2.7); MONOS% (MANUAL) 8 % (2-9); SEG#(MANUAL) 7.14 x10^3/uL (1.8-6.8); SEGS% (MANUAL) 76 % (42-75)
[2019-10-18 07:44] LABS: ANISOCYTOSIS 2+; HYPOCHROMIA 1+; MICROCYTOSIS 2+
[2019-10-18 07:45] LABS: <PLATELET ESTIMATE> INCREASED
[2019-10-18 07:46] LABS: <PLT MORPHOLOGY> NORMAL PLT MORPH
--- NOTE | 2019-10-18 07:56 | NUR ---
CT DELAY-PT UNCOOPERATIVE.
--- NOTE | 2019-10-18 07:57 | NUR ---
PT ATTEMPTED TO GET OUT OF BED X MULTIPLE TIMES. THIS RN EDUCATED REGARDING STAYING BED FOR SAFETY REASONS. PT IS STILL NOT COOPERATIVE AT THIS TIME. DRINK WAITER NOTIFIED PT NEEDS SITTER AT THIS TIME.
--- NOTE | 2019-10-18 08:56 | NUR ---
PT SLEEPING IN [facility]. RESPS EVEN AND UNLABORED. ALL MONITORS IN PLACE. CALL LIGHT WITHIN REACH.
--- NOTE | 2019-10-18 09:09 | NUR ---
PT TO CT AT THIS TIME.
--- NOTE | 2019-10-18 09:25 | NUR ---
pt back to room from ct at this time.
--- NOTE | 2019-10-18 09:26 | NUR ---
sitter monitoring from [facility] for safety at this time.
--- NOTE | 2019-10-18 10:49 | NUR ---
RESTRAINTS REMOVED PER PA VERBAL ORDER AT THIS TIME. PT RESTING IN [facility]. PT IS COOPERATIVE AT THIS TIME. SITTER MONITORING FROM [facility] FOR SAFETY.
--- NOTE | 2019-10-18 11:10 | NUR ---
DIET TRAY PROVIDED AT THIS TIME.
[2019-10-18 11:45] VITALS: BP 107/51
--- NOTE | 2019-10-18 11:48 | NUR ---
pt resting in [facility]. pt's aox4. resps even and unlabored. pt provided some water at this time. sitter monitoring from [facility] for safety.
--- NOTE | 2019-10-18 12:06 | NUR ---
pt is still unstable on feet. pt needs more time. pt's aox4. resps even and unlabored. diet tray order for pt per request.
--- NOTE | 2019-10-18 12:35 | NUR ---
BREAK RN. PT GIVEN MEAL TRAY. ALERT AND ORIENTED X3 CURRENTLY, EATING MEAL TRAY. PT REPOSITIONED TO SITTING POSITION IN BED, SITTER REMAINS AT BEDSIDE. PT REMAINS ON MONITORS.
--- NOTE | 2019-10-18 13:01 | NUR ---
pt is still unsteady on feet. resps even and unlabored. provided some water at this time.
--- NOTE | 2019-10-18 13:30 | NUR ---
PT IS ABLE TO STAND UP AND AMB WITH STEADY GAIT WITHOUT COMPOUND MIXER AT THIS TIME.
--- NOTE | 2019-10-18 13:43 | NUR ---
Patient given discharge instructions and they have confirmed that they understand the instructions. Patient ambulatory with steady gait.
== END 2019-10-18 13:44 | disposition home or self-care (01) ==
LOC: ED 09:15
DX: S09.90XA Unspecified injury of head, initial encounter (principal); F10.120 Alcohol abuse with intoxication, uncomplicated; R11.2 Nausea with vomiting, unspecified; J32.9 Chronic sinusitis, unspecified; X58.XXXA Exposure to other specified factors, initial encounter; Y93.89 Activity, other specified; Y92.89 Other specified places as the place of occurrence of the external cause; Y99.8 Other external cause status; Y90.9 Presence of alcohol in blood, level not specified
CPT/HCPCS: 36415; 70450; 70486; 80053; 80307; 85025; 96361; 96374; 96375; 99285; J2405; J3490; J7030

== ENCOUNTER 2019-10-18 16:13 | Emergency (ER) | payer MEDICAID ==
[~2019-10-18] VITALS: Ht 167.6 cm; Wt 65.0 kg
--- NOTE | 2019-10-18 16:51 | NUR ---
PT FOUND TO HAVE REMOVED MONITORS, PT WAS 71% ON RA, PT PLACED ON 5L OXYMASK. MD NOTIFIED. PT SAYING SOME WORDS BUT STILL LETHARGIC AND MOSTLY SLEEPING.
--- NOTE | 2019-10-18 16:51 | NUR ---
YOAV SENT TO PHARMACY FOR THIAMINE
[2019-10-18] MEDS ORDERED: NALOXONE 0.4 MG/ML, 1ML ONE (16:59)
[2019-10-18] MEDS ORDERED: SODIUM CHLORIDE 0.9% 1,000ML IVBOLUS ONE ×2 (17:00→20:00)
[2019-10-18] MEDS ORDERED: THIAMINE 100 MG in SODIUM CHLORIDE 0.9% 50 ML IVPB ONE (17:00)
[2019-10-18] MEDS ORDERED: PLEASE ENTER HEIGHT AND WEIGHT MC SCH (17:00)
[2019-10-18] MEDS ORDERED: NALOXONE 0.4 MG/ML, 1ML IVPush PRN (17:00)
--- NOTE | 2019-10-18 17:06 | NUR ---
NO EFFECT FROM NARCAN
--- NOTE | 2019-10-18 19:02 | NUR ---
REPORT RECEIVED FROM MACIEL FERNÁNDEZ. PT RESTING ON GURNEY WITH EYES CLOSED, RESPIRATIONS EVEN AND NONLABORED. SITTER IN HALLWAY WITHIN LINE OF SIGHT. MONITORING IN PLACE. LAST RN REPORTS PT UP TO BESIDE WITHOUT STEADY GAIT, PT PEED ON FLOOR AND VOMITED ON HIMSELF APPX 30 MIN AGO PER LAST RN. X2 RAILS RAISED
[2019-10-18] MEDS ORDERED: ONDANSETRON 2MG/ML, 2ML ONE (19:34)
[2019-10-18 19:40] VITALS: BP 132/73
[2019-10-18] MEDS ORDERED: ONDANSETRON 2MG/ML, 2ML IVPush ONE (20:00)
--- NOTE | 2019-10-18 20:03 | NUR ---
REPORT FROM [facility].
--- NOTE | 2019-10-18 20:53 | NUR ---
PT SLEEPING, EVEN AND UNLABORED RESPIRATIONS. SAFETY FALL PRECAUTIONS IN PLACE.
--- NOTE | 2019-10-18 22:02 | NUR ---
PROVIDED PT WITH CRACKERS. PT UNABLE TO AMBULATE AT THIS TIME. SAFETY FALL PRECAUTIONS IN PLACE.
--- NOTE | 2019-10-18 22:45 | NUR ---
PT AMBULATED TO BATHROOM WITHOUT ASSISTANCE ON STEADY GAIT.
== END 2019-10-18 22:55 | disposition home or self-care (01) ==
LOC: ED 17:17
DX: F10.221 Alcohol dependence with intoxication delirium (principal); R11.10 Vomiting, unspecified; Y90.0 Blood alcohol level of less than 20 mg/100 ml
CPT/HCPCS: 96361; 96365; 96375; 99284; J2310; J2405; J3411; J7030

== ENCOUNTER 2019-10-19 09:35 | Emergency (ER) | payer MEDICAID ==
[~2019-10-19] VITALS: Ht 170.2 cm; Wt 70.0 kg
[~2019-10-19 09:35] MED LIST changes: -MULT-449 PO; +MULT1TAB60 PO
--- NOTE | 2019-10-19 10:31 | NUR ---
BREAKFAST TRAY SERVED TO PATIENT.
[2019-10-19 14:12] VITALS: BP 117/53
[2019-10-20] MEDS ORDERED: METH40TA3 PO (05:05)
== END 2019-10-19 14:13 | disposition home or self-care (01) ==
LOC: ED 10:05
DX: F10.220 Alcohol dependence with intoxication, uncomplicated (principal); Z90.89 Acquired absence of other organs; Y90.9 Presence of alcohol in blood, level not specified
CPT/HCPCS: 99283

== ENCOUNTER 2019-10-19 15:59 | Emergency (ER) | payer MEDICAID ==
[~2019-10-19] VITALS: Ht 170.2 cm; Wt 62.0 kg
--- NOTE | 2019-10-19 16:11 | NUR ---
FANTA. REPORT RECEIVED FROM EMS. +ETOH/VOMITTING. DENIES LOC/GLF. PT'S AOX4. PT VOMITTING IN ROOM AT THIS TIME. RESPS EVEN AND UNLABORED. BP/SPO2 MONITORS IN PLACE. CALL LIGHT WITHIN REACH.
[2019-10-19] MEDS ORDERED: ONDANSETRON ODT 4 MG ONE (16:21)
--- NOTE | 2019-10-19 16:26 | NUR ---
PT MEDICATED PER EMAR. PT TOLERATED WELL.
--- NOTE | 2019-10-19 16:27 | NUR ---
BREATHALYZER 0.129 AT THIS TIME.
[2019-10-19] MEDS ORDERED: ONDANSETRON ODT 4 MG PO ONE (16:30)
--- NOTE | 2019-10-19 17:15 | NUR ---
PT SLEEPING IN [facility]. RESPS EVEN AND UNLABORED. SPO2 WAS 86% WITH RA. PT PLACED 4L OXY VIA NC AND SPO2 IS ABOVE 90% AT THIS TIME.
--- NOTE | 2019-10-19 18:00 | NUR ---
PT RESTING IN [facility]. RESPS EVEN AND UNLABORED. BP/SPO2 MONITORS IN PLACE. CALL LIGHT WITHIN REACH. RAILS UP X 2.
--- NOTE | 2019-10-19 18:16 | NUR ---
DIET TRAY ORDERED PER REQUEST AT THIS TIME.
--- NOTE | 2019-10-19 18:39 | NUR ---
DIET TRAY PROVIDED AT THIS TIME.
--- NOTE | 2019-10-19 19:10 | NUR ---
MILK PROVIDED PER REQUEST AT THIS TIME. PT RESTING IN [facility]. RESPS EVEN AND UNLABORED. PT REMOVED ALL MONITORS AND OXY AT THIS TIME.
[2019-10-19 19:21] VITALS: BP 105/44
--- NOTE | 2019-10-19 19:22 | NUR ---
ROMMEL BLANKET GIVEN.
--- NOTE | 2019-10-19 19:42 | NUR ---
Patient given discharge instructions and they have confirmed that they understand the instructions. Patient ambulatory with steady gait.
[2019-10-20] MEDS ORDERED: METH40TA3 PO (05:05)
== END 2019-10-19 19:43 | disposition home or self-care (01) ==
LOC: ED 17:49
DX: F10.120 Alcohol abuse with intoxication, uncomplicated (principal); R11.0 Nausea; R41.82 Altered mental status, unspecified; Y90.0 Blood alcohol level of less than 20 mg/100 ml
CPT/HCPCS: 99283; Q0162

== ENCOUNTER 2019-10-19 22:56 | Inpatient (IN) | payer MEDICAID ==
[~2019-10-19] VITALS: Ht 170.2 cm; Wt 56.4 kg
--- NOTE | 2019-10-19 23:20 | NUR ---
PT MOVED TO TR1. PT REFUSING TO WEAR OXYGEN. PT REPEATEDLY REMOVING CANNULA. PT NONCOMPLIANT WITH ALL QUESTIONS AND SAFETY MEASURES. BED RAILS UPX2. PT IN DIRECT VIEW OF NURSES STATION.
[2019-10-20] MEDS ORDERED: SODIUM CHLORIDE 0.9% 1,000 ML IV ONE (00:35)
--- NOTE | 2019-10-20 00:37 | NUR ---
PT WITH RED, BLOOD APPEARING EMESIS. MD INFORMED. MD TO BEDSIDE FOR EVAL.
[2019-10-20] MEDS ORDERED: SODIUM CHLORIDE 0.9% 1,000ML IVBOLUS ONE (01:00)
[2019-10-20] MEDS ORDERED: PANTOPRAZOLE 40 MG IV IVPush ONE (01:00)
[2019-10-20] MEDS ORDERED: SODIUM CHLORIDE FLUSH 10ML SYR IVF ONE (01:00)
[2019-10-20] MEDS ORDERED: PANTOPRAZOLE 40 MG IV ONE (01:02)
[2019-10-20 01:07] LABS: MEAN CORPUSCULAR HEMOGLOBIN 20.4 pg (27.5-34.5); MEAN CORPUSCULAR HGB CONC 30.3 g/dL (33.2-36.2); MEAN CORPUSCULAR VOLUME 67.2 fL (81-97); MEAN PLATELET VOLUME 6.3 fL (7.4-10.4); PLATELET COUNT 457 x10^3/uL (130-400); RED BLOOD COUNT 3.74 x10^6/uL (4.38-5.82); RED CELL DISTRIBUTION WIDTH 27.6 % (9.4-14.8)
[2019-10-20 01:12] LABS: INTERNATIONAL NORMALIZED RATIO 0.88 (0.93-1.1); PROTHROMBIN TIME 9.3 Seconds (9.6-11.5)
[2019-10-20] MEDS ORDERED: PANTOPRAZOLE 80 MG in SODIUM CHLORIDE 0.9% 100 ML IV SCH (01:12)
[2019-10-20 01:13] LABS: ANION GAP 4 mmol/L (5-15); CALCIUM 7.6 mg/dL (8.5-10.1); CHLORIDE 108 mmol/L (98-107)
[2019-10-20 01:14] LABS: ALANINE AMINOTRANSFERASE 23 U/L (12-78); ALBUMIN 2.3 g/dL (3.4-5.0)
[2019-10-20 01:15] LABS: ALKALINE PHOSPHATASE 102 U/L (45-117); BILIRUBIN,TOTAL 0.3 mg/dL (0.2-1.0); TOTAL PROTEIN 6.2 g/dL (6.4-8.2)
[2019-10-20] MEDS ORDERED: OCTREOTIDE 100MCG/ML, 1ML (0.1MG/ML) ONE (01:18)
[2019-10-20] MEDS ORDERED: SODIUM CHLORIDE FLUSH 10ML SYR IVF PRN (01:30)
[2019-10-20] MEDS ORDERED: THIAMINE 100 MG in SODIUM CHLORIDE 0.9% 50 ML IVPB ONE (01:30)
[2019-10-20] MEDS ORDERED: OCTREOTIDE 100MCG/ML, 1ML (0.1MG/ML) IV ONE (01:30)
[2019-10-20 01:37] LABS: MD YES
[2019-10-20 01:39] LABS: EOS#(MANUAL) 0.08 x10^3/uL (0.0-0.4); EOS% (MANUAL) 1 % (1-7); LYMPH#(MANUAL) 1.97 x10^3/uL (1-3.4); LYMPHS% (MANUAL) 24 % (22-44); MONOS#(MANUAL) 0.41 x10^3/uL (0.3-2.7); MONOS% (MANUAL) 5 % (2-9); SEG#(MANUAL) 5.74 x10^3/uL (1.8-6.8); SEGS% (MANUAL) 70 % (42-75)
[2019-10-20 01:40] LABS: ANISOCYTOSIS 2+; MICROCYTOSIS 2+
[2019-10-20 01:41] LABS: HYPOCHROMIA 1+; POLYCHROMASIA 1+
[2019-10-20 01:42] LABS: OVALOCYTES 1+
[2019-10-20 01:43] LABS: <PLATELET ESTIMATE> INCREASED; <PLT MORPHOLOGY> NORMAL PLT MORPH
[2019-10-20 01:58] LABS: AMPHETAMINE SCREEN, URINE Negative (Negative); BARBITURATE SCREEN, URINE Negative (Negative); BENZODIAZEPINE SCREEN, URINE Positive (Negative); CANNABINOID SCREEN, URINE Negative (Negative); COCAINE SCREEN, URINE Negative (Negative); METHADONE SCREEN, URINE Negative (Negative); OPIATE SCREEN, URINE Negative (Negative)
[2019-10-20] MEDS ORDERED: ONDANSETRON 2MG/ML, 2ML IV PRN (03:00)
[2019-10-20] MEDS ORDERED: LORazepam 2 MG/ML, 1ML IV PRN ×4 (03:00)
[2019-10-20] MEDS ORDERED: FOLIC ACID 5 MG/ML IM ONE (03:00)
[2019-10-20] MEDS: OCTREOTIDE 500 MCG in SODIUM CHLORIDE 0.9% 99 ML IV PRN ×2 (04:18→16:28)
[2019-10-20] MEDS: D5%-0.9% NACL 1,000 ML IV SCH ×2 (04:19→16:10)
[2019-10-20 04:35] VITALS: BP 107/59
[2019-10-20] MEDS ORDERED: METH40TA3 PO (05:05)
[2019-10-20] MEDS: CLINDAMYCIN PMX 600MG/50ML 50 ML IV SCH ×2 (06:31→11:39)
[2019-10-20 07:28] VITALS: BP 123/69
[2019-10-20] MEDS: PANTOPRAZOLE 40 MG IV IVPush SCH ×2 (07:46→20:06)
[2019-10-20] MEDS: MULTIVITAMINS/MINERALS TABLET PO SCH (07:46)
[2019-10-20] MEDS: LORazepam 2 MG/ML, 1ML IV PRN ×4 (07:57→20:06)
[2019-10-20 14:18] VITALS: BP 135/80
[2019-10-20 21:12] VITALS: BP 137/81
[2019-10-21] MEDS: LORazepam 2 MG/ML, 1ML IV PRN ×3 (00:10→11:07)
[2019-10-21 01:21] VITALS: BP 136/81
[2019-10-21 05:09] LABS: ALANINE AMINOTRANSFERASE 19 U/L (12-78); ALBUMIN 2.1 g/dL (3.4-5.0); ANION GAP 7 mmol/L (5-15); CALCIUM 7.9 mg/dL (8.5-10.1); CHLORIDE 106 mmol/L (98-107); CREATININE 0.55 mg/dL (0.7-1.3)
[2019-10-21] MEDS: D5%-0.9% NACL 1,000 ML IV SCH ×2 (05:22→23:11)
[2019-10-21 05:34] LABS: % IRON SATURATION 2 % (20-55); ALKALINE PHOSPHATASE 100 U/L (45-117); BILIRUBIN,TOTAL 0.2 mg/dL (0.2-1.0); IRON LEVEL 6 mcg/dL (65-175); TOTAL IRON BINDING CAPACITY 331 mcg/dL (250-450); TOTAL PROTEIN 6.3 g/dL (6.4-8.2)
[2019-10-21 06:01] LABS: MD YES; MEAN CORPUSCULAR HEMOGLOBIN 20.6 pg (27.5-34.5); MEAN CORPUSCULAR HGB CONC 30.4 g/dL (33.2-36.2); MEAN CORPUSCULAR VOLUME 67.9 fL (81-97); MEAN PLATELET VOLUME 6.6 fL (7.4-10.4); PLATELET COUNT 491 x10^3/uL (130-400); RED BLOOD COUNT 3.86 x10^6/uL (4.38-5.82); RED CELL DISTRIBUTION WIDTH 27.7 % (9.4-14.8)
[2019-10-21 06:03] LABS: BASOS#(MANUAL) 0.04 x10^3/uL (0-0.1); BASOS% (MANUAL) 1 % (0-1); EOS#(MANUAL) 0.16 x10^3/uL (0.0-0.4); EOS% (MANUAL) 4 % (1-7); LYMPH#(MANUAL) 1.56 x10^3/uL (1-3.4); LYMPHS% (MANUAL) 38 % (22-44); MONOS#(MANUAL) 0.37 x10^3/uL (0.3-2.7); MONOS% (MANUAL) 9 % (2-9); SEG#(MANUAL) 1.97 x10^3/uL (1.8-6.8); SEGS% (MANUAL) 48 % (42-75)
[2019-10-21 06:04] LABS: <PLATELET ESTIMATE> INCREASED; <PLT MORPHOLOGY> NORMAL PLT MORPH; ANISOCYTOSIS 2+; HYPOCHROMIA 1+; MICROCYTOSIS 2+; OVALOCYTES 1+; POLYCHROMASIA 1+
[2019-10-21] MEDS: FOLIC ACID 1 MG TABLET PO SCH (07:32)
[2019-10-21] MEDS: MULTIVITAMINS/MINERALS TABLET PO SCH (07:33)
[2019-10-21] MEDS: PANTOPRAZOLE 40 MG IV IVPush SCH (11:15)
[2019-10-21] MEDS: THIAMINE 100 MG in DEXTROSE 5% 50 ML IVPB SCH (11:15)
[2019-10-21 12:05] VITALS: BP 116/78
[2019-10-21] MEDS ORDERED: MAGNESIUM SULFATE PMX 2GM/50ML 50 ML IV ONE (12:30)
[2019-10-21] MEDS ORDERED: CHLORHEXIDINE 15 ML UDC MM STA (13:58)
[2019-10-21] MEDS ORDERED: MIDAZOLAM 1 MG/ML, 2ML IV PRN (14:00)
[2019-10-21] MEDS ORDERED: DIAZEPAM 5 MG/ML, 2ML IVPush PRN (14:00)
[2019-10-21] MEDS ORDERED: ACETAMINOPHEN 325 MG TABLET PO PRN (14:00)
[2019-10-21] MEDS ORDERED: ALBUTEROL/IPRATROPIUM 2.5MG/0.5MG, 3 ML NPPB PRN (14:00)
[2019-10-21] MEDS ORDERED: ONDANSETRON 2MG/ML, 2ML IVPush PRN (14:00)
[2019-10-21] MEDS ORDERED: hydrALAzine 20 MG/ML, 1ML IV PRN (14:00)
[2019-10-21] MEDS ORDERED: METOCLOPRAMIDE 5 MG/ML, 2ML IVPush PRN (14:00)
[2019-10-21] MEDS ORDERED: HYDROmorphone 1 MG/ML, 1ML INJ IVPush PRN (14:00)
[2019-10-21] MEDS ORDERED: EPHEDRINE 50 MG/ML, 1ML IVPush PRN (14:00)
[2019-10-21] MEDS ORDERED: LABETALOL 5MG/ML, 20ML IV PRN (14:00)
[2019-10-21] MEDS ORDERED: morphine SULFATE 10 MG/ML, 1ML IVPush PRN (14:00)
[2019-10-21] MEDS ORDERED: DIPHENHYDRAMINE 50 MG/ML, 1ML IVPush PRN (14:00)
[2019-10-21] MEDS ORDERED: OXYcodone 5 MG/5 ML ORAL.SOL UDC PO PRN (14:00)
[2019-10-21] MEDS ORDERED: EPHEDRINE 50 MG/ML, 1ML IM PRN (14:00)
[2019-10-21] MEDS ORDERED: MEPERIDINE/PF 25MG/0.5ML IVPush PRN (14:00)
[2019-10-21] MEDS ORDERED: LORazepam 2 MG/ML, 1ML IVPush PRN (14:00)
[2019-10-21] MEDS ORDERED: HYDROcodone/APAP 7.5-325MG/15ML UDC PO PRN (14:00)
[2019-10-21] MEDS ORDERED: HALOPERIDOL 5 MG/ML IV PRN (14:00)
[2019-10-21] MEDS ORDERED: DEXAMETHASONE 4 MG/ML, 1ML ONE (14:10)
[2019-10-21] MEDS ORDERED: PROPOFOL 10 MG/ML, 20ML ONE (14:11)
[2019-10-21] MEDS ORDERED: LIDOCAINE-MPF 2% ,5ML ONE (14:11)
[2019-10-21] MEDS ORDERED: GLYCOPYRROLATE 0.2MG/1ML, 5ML ONE (14:11)
[2019-10-21] MEDS ORDERED: FENTANYL PF 100 MCG/2ML ONE (15:05)
[2019-10-21] MEDS: FENTANYL PF 100 MCG/2ML IV PRN ×2 (15:05→15:14)
[2019-10-21] MEDS: SUCRALFATE 1 GM/10 ML UDC PO SCH (16:22)
[2019-10-21] MEDS: MORPHINE SULFATE 4 MG/ML, 1ML IVPush PRN ×2 (17:04→21:34)
[2019-10-21] MEDS: OMEPRAZOLE 20 MG CAPSULE.DR PO SCH (17:04)
[2019-10-21 19:11] VITALS: BP 119/73
[2019-10-22 01:23] VITALS: BP 127/68
[2019-10-22] MEDS: MORPHINE SULFATE 4 MG/ML, 1ML IVPush PRN ×4 (01:41→14:41)
[2019-10-22 05:52] LABS: ANION GAP 6 mmol/L (5-15); CHLORIDE 105 mmol/L (98-107); CREATININE 0.67 mg/dL (0.7-1.3)
[2019-10-22] MEDS: OMEPRAZOLE 20 MG CAPSULE.DR PO SCH (05:59)
[2019-10-22 06:01] LABS: MEAN CORPUSCULAR HEMOGLOBIN 20.6 pg (27.5-34.5); MEAN CORPUSCULAR HGB CONC 30.3 g/dL (33.2-36.2); MEAN PLATELET VOLUME 6.9 fL (7.4-10.4); PLATELET COUNT 525 x10^3/uL (130-400); RED CELL DISTRIBUTION WIDTH 28.2 % (9.4-14.8)
[2019-10-22 06:38] VITALS: BP 124/80
[2019-10-22 06:46] LABS: MD YES
[2019-10-22 06:47] LABS: EOS#(MANUAL) 0.05 x10^3/uL (0.0-0.4); EOS% (MANUAL) 1 % (1-7); LYMPH#(MANUAL) 0.98 x10^3/uL (1-3.4); LYMPHS% (MANUAL) 20 % (22-44); MONOS#(MANUAL) 0.59 x10^3/uL (0.3-2.7); MONOS% (MANUAL) 12 % (2-9); SEG#(MANUAL) 3.28 x10^3/uL (1.8-6.8); SEGS% (MANUAL) 67 % (42-75)
[2019-10-22 06:48] LABS: <PLATELET ESTIMATE> INCREASED; <PLT MORPHOLOGY> NORMAL PLT MORPH; ANISOCYTOSIS 2+; HYPOCHROMIA 1+; MICROCYTOSIS 2+; OVALOCYTES 1+; POLYCHROMASIA 1+
[2019-10-22] MEDS: SUCRALFATE 1 GM/10 ML UDC PO SCH ×2 (07:43→12:56)
[2019-10-22] MEDS: FOLIC ACID 1 MG TABLET PO SCH (08:35)
[2019-10-22] MEDS: THIAMINE 100 MG in DEXTROSE 5% 50 ML IVPB SCH (08:35)
[2019-10-22] MEDS: MULTIVITAMINS/MINERALS TABLET PO SCH (08:35)
[2019-10-22] MEDS ORDERED: IRON SUCROSE COMPLEX 100MG/5ML IV SCH (09:00)
[2019-10-22] MEDS ORDERED: THIA100T67 PO (11:20)
[2019-10-22] MEDS ORDERED: FOLI-17 PO (11:20)
[2019-10-22] MEDS ORDERED: FERR324T5 PO (11:20)
[2019-10-22] MEDS ORDERED: PANT40TA3 PO (11:20)
[2019-10-22] MEDS ORDERED: SUCR1TAB PO (11:20)
[2019-10-22 12:12] VITALS: BP 122/81
== END 2019-10-22 15:40 | disposition home or self-care (01) | DRG 391 ==
LOC: ED 10-20 01:15 → EDIP 10-20 02:38 → 4EST 10-20 02:45
PROVIDERS: ADMIT Internal Medicine; ATTEND Internal Medicine Infectious Disease
PROC: 0DB68ZX Excision of Stomach, Via Natural or Artificial Opening Endoscopic, Diagnostic (ICD-10-PCS; 2019-10-21)
PROC: 0DB58ZX Excision of Esophagus, Via Natural or Artificial Opening Endoscopic, Diagnostic (ICD-10-PCS; 2019-10-21)
PROC: 0DB98ZX Excision of Duodenum, Via Natural or Artificial Opening Endoscopic, Diagnostic (ICD-10-PCS; principal; 2019-10-21 15:00)
DX: K21.0 Gastro-esophageal reflux disease with esophagitis (principal); J69.0 Pneumonitis due to inhalation of food and vomit; K92.2 Gastrointestinal hemorrhage, unspecified; F11.20 Opioid dependence, uncomplicated; D62 Acute posthemorrhagic anemia; F10.129 Alcohol abuse with intoxication, unspecified; Y90.0 Blood alcohol level of less than 20 mg/100 ml; D50.9 Iron deficiency anemia, unspecified; D64.9 Anemia, unspecified; F19.10 Other psychoactive substance abuse, uncomplicated; B18.2 Chronic viral hepatitis C; K70.9 Alcoholic liver disease, unspecified; K22.8 Other specified diseases of esophagus; Z59.0 Homelessness; Z90.89 Acquired absence of other organs; Z91.012 Allergy to eggs; Z85.07 Personal history of malignant neoplasm of pancreas; Z91.018 Allergy to other foods
CPT/HCPCS: 36415; 84145; 96361; 96365; 96368; 96375; 99291; J3490; J7042; 71045; 80048; 80053; 80074; 80307; 82607; 82728; 83540; 83550; 83690; 83735; 85014; 85018; 85025; 85610; 85730; 86850; 86900; 87521; 87635; 88305; G0378; J1100; J1756; J2354; J2704; J3010; J3411; C9113; J2060; J2270; J3475; J7030; U0001-CS

== ENCOUNTER 2019-10-25 14:48 | Emergency (ER) | payer MEDICAID ==
[~2019-10-25] VITALS: Ht 170.2 cm; Wt 55.6 kg
[~2019-10-25 14:48] MED LIST changes: +FERR324T5 PO; +METH40TA3 PO; +MULT-449 PO; -MULT1TAB60 PO; +PANT40TA3 PO; +SUCR1TAB PO
[2019-10-25 14:55] VITALS: BP 147/50
[2019-10-25 15:46] LABS: MEAN CORPUSCULAR HEMOGLOBIN 20.9 pg (27.5-34.5); MEAN CORPUSCULAR HGB CONC 30.7 g/dL (33.2-36.2); MEAN CORPUSCULAR VOLUME 68.1 fL (81-97); PLATELET COUNT 595 x10^3/uL (130-400); RED BLOOD COUNT 3.61 x10^6/uL (4.38-5.82); RED CELL DISTRIBUTION WIDTH 29.1 % (9.4-14.8)
[2019-10-25 15:54] LABS: ALANINE AMINOTRANSFERASE 17 U/L (12-78); ALBUMIN 2.9 g/dL (3.4-5.0); ANION GAP 4 mmol/L (5-15); CALCIUM 7.8 mg/dL (8.5-10.1); CHLORIDE 105 mmol/L (98-107); CREATININE 0.71 mg/dL (0.7-1.3)
[2019-10-25 15:56] LABS: ALKALINE PHOSPHATASE 117 U/L (45-117); BILIRUBIN,TOTAL 0.2 mg/dL (0.2-1.0); TOTAL PROTEIN 6.8 g/dL (6.4-8.2)
[2019-10-25 16:26] LABS: MD YES
[2019-10-25 16:32] LABS: ANISOCYTOSIS 2+; EOS#(MANUAL) 0.06 x10^3/uL (0.0-0.4); EOS% (MANUAL) 1 % (1-7); LYMPH#(MANUAL) 2.73 x10^3/uL (1-3.4); LYMPHS% (MANUAL) 44 % (22-44); MONOS#(MANUAL) 0.12 x10^3/uL (0.3-2.7); MONOS% (MANUAL) 2 % (2-9); SEG#(MANUAL) 3.29 x10^3/uL (1.8-6.8); SEGS% (MANUAL) 53 % (42-75)
[2019-10-25 16:33] LABS: <PLATELET ESTIMATE> INCREASED; <PLT MORPHOLOGY> NORMAL PLT MORPH; HYPOCHROMIA 1+; MICROCYTOSIS 1+; OVALOCYTES 1+; POLYCHROMASIA 1+; TARGET CELLS 1+
== END 2019-10-25 16:03 | disposition left against medical advice (07) ==
LOC: ED 15:55
DX: R10.84 Generalized abdominal pain (principal); F10.10 Alcohol abuse, uncomplicated; F17.200 Nicotine dependence, unspecified, uncomplicated; K59.00 Constipation, unspecified; I10 Essential (primary) hypertension; J45.909 Unspecified asthma, uncomplicated; Z85.46 Personal history of malignant neoplasm of prostate; Z90.89 Acquired absence of other organs; Z72.9 Problem related to lifestyle, unspecified; Y90.0 Blood alcohol level of less than 20 mg/100 ml
CPT/HCPCS: 36415; 80053; 83690; 85025; 99283

== ENCOUNTER 2019-10-26 21:08 | Emergency (ER) | payer MEDICAID ==
[~2019-10-26] VITALS: Ht 175.3 cm; Wt 73.0 kg
[2019-10-26 21:12] VITALS: BP 106/70
--- NOTE | 2019-10-26 21:19 | NUR ---
PT RESTING ON GURNEY, A&OX2, + ETOH ODOR, MONITORS APPLIED, SIDERAILS UP X2, CALL LIGHT WITHIN REACH. AWAITING ERP EVAL AND ORDERS
--- NOTE | 2019-10-26 21:35 | NUR ---
pt frequently removing all monitor wires, n/c and attempting to get oob. pt reoriented to event and need to keep monitors on, will continue to monitor
--- NOTE | 2019-10-26 21:55 | NUR ---
found pt up in room, pt crawled over bedside rail, pt with unsteady gait assisted pt back onto rculver, reminded pt not to get oob and to use call light when needing assistance getting up, no response by pt. charge preparation technician updated reguarding pt status, frequently getting oob anf refusing to keep monitor wires and o2 n/c on.
--- NOTE | 2019-10-26 22:10 | NUR ---
pt resting on [facility], sitter at doorway for continous monitoring
--- NOTE | 2019-10-26 22:58 | NUR ---
pt resting on gurney, nad, respirations even and unlabored, sitter remains at bedside for continous moniotring
--- NOTE | 2019-10-27 00:13 | NUR ---
PROVIDED PT WITH SANDWICH AND DRINK
--- NOTE | 2019-10-27 00:40 | NUR ---
pt ambulated to with stanby assist, tolerated transfer without difficulty
== END 2019-10-27 00:50 | disposition home or self-care (01) ==
LOC: ED 10-27 00:10
DX: F10.220 Alcohol dependence with intoxication, uncomplicated (principal); R41.82 Altered mental status, unspecified; F17.210 Nicotine dependence, cigarettes, uncomplicated; I10 Essential (primary) hypertension; Z90.89 Acquired absence of other organs; Z85.07 Personal history of malignant neoplasm of pancreas; Y90.0 Blood alcohol level of less than 20 mg/100 ml
CPT/HCPCS: 99283; 99406

== ENCOUNTER 2019-10-27 12:32 | Emergency (ER) | payer MEDICAID ==
[~2019-10-27] VITALS: Ht 170.2 cm; Wt 60.0 kg
[2019-10-27] MEDS ORDERED: MAALOX/HYOSCYAMINE/LIDOCAINE 45 ML BTL ONE (12:56)
[2019-10-27] MEDS ORDERED: PROMETHAZINE 25 MG/ML, 1ML ONE (12:56)
[2019-10-27] MEDS ORDERED: METOCLOPRAMIDE 5 MG/ML, 2ML ONE (12:57)
[2019-10-27] MEDS ORDERED: SODIUM CHLORIDE 0.9% 1,000ML IVBOLUS ONE (13:00)
[2019-10-27] MEDS ORDERED: MAALOX/HYOSCYAMINE/LIDOCAINE 45 ML BTL PO ONE (13:00)
[2019-10-27] MEDS ORDERED: METOCLOPRAMIDE 5 MG/ML, 2ML IVPush ONE (13:00)
[2019-10-27] MEDS ORDERED: SODIUM CHLORIDE FLUSH 10ML SYR IVF ONE (13:00)
--- NOTE | 2019-10-27 13:05 | NUR ---
PT COVERED IN EMESIS UPON ENTRANCE TO ROOM VIA [facility]. PT ACUTELY INEBRIATED, ADMITS TO 1/2 BRENDAN PRUETT THIS MORNING. PT HAD A LARGE EMESIS ON THE FLOOR. ERP NOTIFIED, ORDERS RECEIVED AND ADMINISTERED. PT REPEATEDLY REMOVES MONITORING EQUIPMENT, THROWS EMESIS BAGS ON FLOOR AND VOMITS ON FLOOR INSTEAD. PT DENIES ANY NEEDS OR CONCERNS, DOES NOT OFFER MUCH VERBAL RESPONSE. CALL LIGHT IN REACH.
[2019-10-27 13:10] LABS: INTERNATIONAL NORMALIZED RATIO 0.88 (0.93-1.1); MD YES; MEAN CORPUSCULAR HEMOGLOBIN 20.7 pg (27.5-34.5); MEAN CORPUSCULAR HGB CONC 30.2 g/dL (33.2-36.2); MEAN CORPUSCULAR VOLUME 68.7 fL (81-97); MEAN PLATELET VOLUME 6.2 fL (7.4-10.4); PLATELET COUNT 765 x10^3/uL (130-400); PROTHROMBIN TIME 9.3 Seconds (9.6-11.5); RED BLOOD COUNT 4.33 x10^6/uL (4.38-5.82); RED CELL DISTRIBUTION WIDTH 28.9 % (9.4-14.8)
[2019-10-27 13:13] LABS: ALANINE AMINOTRANSFERASE 19 U/L (12-78); ALBUMIN 2.9 g/dL (3.4-5.0); ANION GAP 5 mmol/L (5-15); CALCIUM 7.7 mg/dL (8.5-10.1); CHLORIDE 107 mmol/L (98-107); CREATININE 0.67 mg/dL (0.7-1.3)
[2019-10-27 13:15] LABS: ALKALINE PHOSPHATASE 121 U/L (45-117); BILIRUBIN,TOTAL 0.1 mg/dL (0.2-1.0); TOTAL PROTEIN 7.1 g/dL (6.4-8.2)
--- NOTE | 2019-10-27 13:34 | NUR ---
PT WILL NOT LEAVE VITALS MONITORING IN PLACE. PT THREW EMESIS BAG ON FLOOR, AND VOMITED INTO THE SINK. RESPONSIVE TO VERBAL STIMULI BUT PT IS ARGUMENTATIVE AND NONCOMPLIANT. CALL LIGHT IN REACH.
[2019-10-27 13:37] LABS: ANISOCYTOSIS 2+; BAND#(MANUAL) 0.07 x10^3/uL; BANDS%(MANUAL) 1 % (0-7); LYMPH#(MANUAL) 1.24 x10^3/uL (1-3.4); LYMPHS% (MANUAL) 17 % (22-44); MICROCYTOSIS 1+; MONOS#(MANUAL) 0.37 x10^3/uL (0.3-2.7); MONOS% (MANUAL) 5 % (2-9); POLYCHROMASIA 1+; SEG#(MANUAL) 5.62 x10^3/uL (1.8-6.8); SEGS% (MANUAL) 77 % (42-75)
--- NOTE | 2019-10-27 13:37 | NUR ---
PT PROVIDED WITH URINAL. STARING AT THIS NURSE, BUT WILL NOT VERBALIZE UNDERSTANDING OF ITS USE. PT COVERED FACE WITH SHEET AND IGNORED THIS NURSE. CALL LIGHT IN REACH.
[2019-10-27 13:38] LABS: <PLATELET ESTIMATE> INCREASED; <PLT MORPHOLOGY> NORMAL PLT MORPH; HYPOCHROMIA 2+; OVALOCYTES 1+
[2019-10-27 15:28] VITALS: BP 107/54
--- NOTE | 2019-10-27 16:05 | NUR ---
Patient given discharge instructions and they have confirmed that they understand the instructions. Patient ambulatory with steady gait.
== END 2019-10-27 16:07 | disposition home or self-care (01) ==
LOC: ED 13:15
DX: K29.20 Alcoholic gastritis without bleeding (principal); R10.13 Epigastric pain; R11.2 Nausea with vomiting, unspecified; R10.10 Upper abdominal pain, unspecified; F17.200 Nicotine dependence, unspecified, uncomplicated; I10 Essential (primary) hypertension; Z90.89 Acquired absence of other organs; Z85.07 Personal history of malignant neoplasm of pancreas
CPT/HCPCS: 36415; 80053; 83690; 85025; 85610; 96361; 96374; 99283; J2765; J7030

== ENCOUNTER 2019-11-01 13:38 | Emergency (ER) | payer MEDICAID ==
[~2019-11-01] VITALS: Ht 170.2 cm; Wt 68.0 kg
[2019-11-01 13:45] VITALS: BP 107/60
--- NOTE | 2019-11-01 13:53 | NUR ---
BIB [facility] FOR ETOH, SLEEPING UNDER A TREE OUT FRONT OF THE ASSISTED. PT REPORTS FEELING SLEEPY, HAVING A HARD TIME STAYING AWAKE. DENIES ANY DRUG USE
--- NOTE | 2019-11-01 14:14 | NUR ---
Pt asked to stay in wheel chair and not move around for his safety.
== END 2019-11-01 15:11 | disposition left against medical advice (07) ==
LOC: ED 14:00
DX: F10.129 Alcohol abuse with intoxication, unspecified (principal); R10.9 Unspecified abdominal pain; R11.0 Nausea; I10 Essential (primary) hypertension; F17.200 Nicotine dependence, unspecified, uncomplicated; Z90.89 Acquired absence of other organs; Y90.9 Presence of alcohol in blood, level not specified
CPT/HCPCS: 99283

== ENCOUNTER 2019-11-03 16:59 | Emergency (ER) | payer MEDICAID ==
[~2019-11-03] VITALS: Ht 177.8 cm; Wt 60.0 kg
[2019-11-03 17:14] VITALS: BP 119/74
--- NOTE | 2019-11-03 17:19 | NUR ---
Bib by kayla after [facility] found patient [place] intoxicatingly drunk. Hr found to be 120-130s ems placed piv and gave 500ml of ns. Patient then ripped piv out. Also requiring supp o2 as pox 86% On arrival smell of etoh noted, patient too drowsy answer any questions
--- NOTE | 2019-11-03 17:54 | NUR ---
PT REFUSING TO KEEP MONITORING EQUIPMENT ON. PT EDUCATED ON THE IMPORTANCE OF BEING MONITORED. EQUIPMENT REATTACHED MULTIPLE TIMES WITH NO SUCCESS.
[2019-11-03] MEDS ORDERED: THIAMINE 100MG TABLET PO ONE (18:00)
--- NOTE | 2019-11-03 19:15 | NUR ---
PT REFUSING TO TAKE THIAMINE MEDICATION ORALLY
--- NOTE | 2019-11-03 19:52 | NUR ---
PT RESTING COMFORTABLY. EQUAL CHEST RISE AND FALL OBSERVED FROM DOOR.
== END 2019-11-03 21:06 | disposition home or self-care (01) ==
LOC: ED 20:43
DX: F10.220 Alcohol dependence with intoxication, uncomplicated (principal); Z72.9 Problem related to lifestyle, unspecified; I10 Essential (primary) hypertension; Z90.89 Acquired absence of other organs; Z85.07 Personal history of malignant neoplasm of pancreas; Y90.9 Presence of alcohol in blood, level not specified
CPT/HCPCS: 70450; 99284

== ENCOUNTER 2019-11-05 16:30 | Emergency (ER) | payer MEDICAID ==
[~2019-11-05] VITALS: Ht 177.8 cm; Wt 68.0 kg
[2019-11-05 16:36] VITALS: BP 118/73
--- NOTE | 2019-11-05 16:58 | NUR ---
MULTIPLE ATTEMPTS AT REAPPLYING MONITORING EQUIPMENT UNSUCCESSFUL. PT REPEATEDLY RIPPING OF EQUIPMENT AND O2 NC.
--- NOTE | 2019-11-05 17:32 | NUR ---
PT IN BED WITH SHEET OVER HIS HEAD. EQUAL CHEST RISE AND FALL NOTED.
--- NOTE | 2019-11-05 18:45 | NUR ---
PT RESTING IN BED EQUAL CHEST RISE AND FALL OBSERVED FROM DOOR. PT IS AROUSABLE TO PAINFUL STIMULI AT THIS TIME.
== END 2019-11-05 20:02 | disposition home or self-care (01) ==
LOC: ED 16:35
DX: F10.229 Alcohol dependence with intoxication, unspecified (principal); I10 Essential (primary) hypertension; F17.200 Nicotine dependence, unspecified, uncomplicated; Y90.9 Presence of alcohol in blood, level not specified
CPT/HCPCS: 99283

== ENCOUNTER 2019-11-06 03:36 | Emergency (ER) | payer MEDICAID ==
[~2019-11-06] VITALS: Ht 170.2 cm; Wt 59.1 kg
[2019-11-06 04:25] VITALS: BP 115/83
== END 2019-11-06 04:28 | disposition home or self-care (01) ==
LOC: ED 03:41
DX: R10.84 Generalized abdominal pain (principal); G89.29 Other chronic pain; F10.20 Alcohol dependence, uncomplicated; F17.200 Nicotine dependence, unspecified, uncomplicated; Z72.9 Problem related to lifestyle, unspecified; Z90.89 Acquired absence of other organs; Y90.9 Presence of alcohol in blood, level not specified
CPT/HCPCS: 99283

== ENCOUNTER 2019-11-17 12:41 | Emergency (ER) | payer MEDICAID ==
[~2019-11-17] VITALS: Ht 170.2 cm; Wt 65.0 kg
[2019-11-17 12:42] VITALS: BP 111/68
[2019-11-17] MEDS ORDERED: ONDANSETRON ODT 8 MG PO ONE (13:00)
[2019-11-17] MEDS ORDERED: ONDANSETRON ODT 8 MG ONE (13:04)
== END 2019-11-17 13:50 | disposition home or self-care (01) ==
LOC: ED 13:33
DX: G89.29 Other chronic pain (principal); R10.84 Generalized abdominal pain; R11.2 Nausea with vomiting, unspecified; I10 Essential (primary) hypertension
CPT/HCPCS: 99283; Q0162

== ENCOUNTER 2019-12-05 17:27 | Emergency (ER) | payer MEDICAID ==
[~2019-12-05] VITALS: Ht 170.2 cm; Wt 57.0 kg
[2019-12-05] MEDS ORDERED: NALOXONE 0.4 MG/ML, 1ML ONE (17:39)
[2019-12-05] MEDS ORDERED: NALOXONE 0.4 MG/ML, 1ML IVPush ONE (18:00)
[2019-12-05] MEDS ORDERED: NALOXONE 1 MG/ML, 2ML ONE ×3 (18:27→19:59)
--- NOTE | 2019-12-05 18:57 | NUR ---
REPORT GIVEN TO TEX
[2019-12-05] MEDS ORDERED: NALOXONE 1 MG/ML, 2ML IM ONE ×2 (19:00→19:30)
--- NOTE | 2019-12-05 20:21 | NUR ---
PT REQUESTED FOOD, PT WAS PROVIDED A MEAL TRAY
[2019-12-05 22:37] VITALS: BP 110/60
--- NOTE | 2019-12-05 22:41 | NUR ---
PT AMBULATED TO BATHROOM WITHOUT ASSISTANCE WITH A STEADY GATE
== END 2019-12-05 23:12 | disposition home or self-care (01) ==
LOC: ED 21:55
DX: Z85.07 Personal history of malignant neoplasm of pancreas (principal); T40.1X1A Poisoning by heroin, accidental (unintentional), initial encounter; F11.129 Opioid abuse with intoxication, unspecified; I10 Essential (primary) hypertension
CPT/HCPCS: 96372; 96374; 99284; J2310

== ENCOUNTER 2019-12-07 22:31 | Emergency (ER) | payer MEDICAID ==
--- NOTE | 2019-12-07 22:31 | NUR ---
Pt was noted to have room air sat of 89% upon arrival and placed on NC 2 lpm, sat up to 95%.
--- NOTE | 2019-12-07 22:45 | NUR ---
PT ATTEMPTED TO GET OUT OF BED, PT LAYED BACK DOWN WHEN TOLD. BED RAILS REMAIN UP, PT ON O2 AND BP MONITORS. PT SLEEPING AFTER POSITIONED IN BED.
--- NOTE | 2019-12-07 23:30 | NUR ---
PT SLEEPING, RESPIRATIONS EVEN AND UNLABORED.
--- NOTE | 2019-12-08 00:11 | NUR ---
PT AWAKE TO USE URINAL, RETURNED TO SLEEP.
[2019-12-08 01:21] VITALS: BP 97/59
--- NOTE | 2019-12-08 01:23 | NUR ---
PT SLEEPING, TOLD TO KEEP O2 AND BP MONITORS AND NC IN PLACE, PT NO LONGER PULLING THEM OFF.
--- NOTE | 2019-12-08 02:16 | NUR ---
PT PROVIDED WITH NEW PANTS, ABLE TO DRESS SELF WHILE STILL LAYING IN GURNEY. PT PULLED OF ALL MONITORS.
== END 2019-12-08 03:44 | disposition home or self-care (01) ==
LOC: ED 12-08 00:22
DX: F10.220 Alcohol dependence with intoxication, uncomplicated (principal); I10 Essential (primary) hypertension; F17.210 Nicotine dependence, cigarettes, uncomplicated; Z72.9 Problem related to lifestyle, unspecified; Z90.89 Acquired absence of other organs; Z85.07 Personal history of malignant neoplasm of pancreas; Y90.0 Blood alcohol level of less than 20 mg/100 ml
CPT/HCPCS: 99283; 99406

== ENCOUNTER 2019-12-08 13:48 | Emergency (ER) | payer MEDICAID ==
[~2019-12-08] VITALS: Ht 170.2 cm; Wt 82.0 kg
[2019-12-08 13:54] VITALS: BP 93/43
--- NOTE | 2019-12-08 13:58 | NUR ---
FANTA. REPORT RECEIVED FROM EMS. +ETOH. NO GLF/TRAUMA/LAC NOTED. PT'S AOX3. RESPS EVEN AND UNLABORED. BP/SPO2 MONITORS IN PLACE. CALL LIGHT WITHIN REACH.
--- NOTE | 2019-12-08 15:04 | NUR ---
PT SLEEPING IN [facility]. PT REMOVED ALL MONITORS. RESPS EVEN AND UNLABORED.
--- NOTE | 2019-12-08 16:15 | NUR ---
PT SLEEPING IN [place]. RESPS EVEN AND UNLABORED. CALL LIGHT WITHIN REACH. RAILS UP X2.
--- NOTE | 2019-12-08 17:05 | NUR ---
PT SLEEPING IN [place]. RESPS EVEN AND UNLABORED. CALL LIGHT WITHIN REACH. RAILS UP X2.
--- NOTE | 2019-12-08 18:46 | NUR ---
PT WAS NOT IN ROOM . PT ELOPED.
== END 2019-12-08 18:47 | disposition left against medical advice (07) ==
LOC: ED 16:39
DX: F10.120 Alcohol abuse with intoxication, uncomplicated (principal); R41.82 Altered mental status, unspecified; Z90.89 Acquired absence of other organs; Z85.07 Personal history of malignant neoplasm of pancreas; Y90.0 Blood alcohol level of less than 20 mg/100 ml
CPT/HCPCS: 99283

== ENCOUNTER 2019-12-08 22:21 | Emergency (ER) | payer MEDICAID ==
[~2019-12-08] VITALS: Ht 167.6 cm; Wt 52.0 kg
--- NOTE | 2019-12-08 22:46 | NUR ---
MD AT BEDSIDE TO ASSESS PT
--- NOTE | 2019-12-08 22:55 | NUR ---
PT. RESTING ON GURNEY WITH NO DISTRESS NOTED. RESPIRATIONS VISIBLE AND NON-LABORED. PT. MAINTAINING OWN AIRWAY. PULSE OX IN PLACE.
--- NOTE | 2019-12-08 23:15 | NUR ---
UNABLE TO COMPLETE CT AFTER 3 ATTEMPTS. PT TOO UNCOOPERATIVE.
--- NOTE | 2019-12-08 23:40 | NUR ---
PT. CONTINUALLY PULLING OFF MONITORS AND OXYGEN. OFFERED FREQUENT RE-ORIENTATION AND REMINDERS TO LEAVE O2 ON AND REMAIN ON GURNEY.
--- NOTE | 2019-12-08 23:54 | NUR ---
PT. CLIMBED OUT OF [facility] AND AMBULATED OVER TO [facility]; PT. PROCEDED TO URINATE INTO THE TRASHCAN. PT. THEN AMBULATED BACK TO [facility] AND LAYED BACK DONW.
[2019-12-09] MEDS ORDERED: AZITHROMYCIN 500 MG TABLET PO ONE
[2019-12-09] MEDS ORDERED: AZITHROMYCIN 250 MG TABLET ONE (00:21)
[2019-12-09 01:52] VITALS: BP 106/60
--- NOTE | 2019-12-09 01:52 | NUR ---
PT. REMOVED ALL MONITORS AND WAS STARTING TO PUT ON HIS PANTS(HOSPITAL PANTS THAT WERE PROVIDED TO HIM ON HIS LAST VISIT). THIS RN INTO ROOM DR. TONY WAS REQUESTING TO SPEAK WITH PT. WHEN HE WAS MORE AWAKE. PT. CLIMBED BACK ONTO [facility] AND IS NOW REQUESTING FOOD. RA SAT WHEN AWAKE IS 94-97%, DROPS WHEN PT. SLEEPING TO 85-88%. WILL SPEAK WITH MD TONY FOR DISPO.
--- NOTE | 2019-12-09 01:57 | NUR ---
DR. TONY TO BS TO DISCUSS POC WITH PT.
--- NOTE | 2019-12-09 02:02 | NUR ---
DR. TONY IN TO DISCUSS PLAN FOR ADMISSION WITH PT. PT. IS REFUSING ADMISSION AND REQUESTING TO LEAVE. PT. IS A&O X 4 AND ABLE TO FULLY DRESS SELF. PT. AMBULATORY TO D/C DESK WITH STEADY GAIT. NO DISTRESS NOTED. FOOD PROVIDED TO PT. AFTER OK FROM MD. PT. VERBALIZED UNDERSTANDING OF IMPORTANCE OF FILLING AND TAKING PROVIDED RX FOR PNA TREATMENT.
== END 2019-12-09 02:30 | disposition home or self-care (01) ==
LOC: ED 12-09 00:29
DX: F10.229 Alcohol dependence with intoxication, unspecified (principal); Z72.9 Problem related to lifestyle, unspecified; F17.210 Nicotine dependence, cigarettes, uncomplicated; R41.82 Altered mental status, unspecified; I10 Essential (primary) hypertension; Z85.07 Personal history of malignant neoplasm of pancreas; R07.9 Chest pain, unspecified; Y90.0 Blood alcohol level of less than 20 mg/100 ml
CPT/HCPCS: 71045; 99406

== ENCOUNTER 2019-12-10 03:29 | Emergency (ER) | payer MEDICAID ==
[~2019-12-10] VITALS: Ht 175.3 cm; Wt 60.0 kg
[2019-12-10 03:32] VITALS: BP 124/88
--- NOTE | 2019-12-10 04:50 | NUR ---
PT PROVIDED WITH SNACKS AND WATER REQ. PT REMOVING ALL MONITORING.
--- NOTE | 2019-12-10 07:22 | NUR ---
PT RESTING ON GURNEY AT THIS TIME, PT WITH VISIBLE CHEST RISE AND FALL, PT NOT ALLOWING MONITORING EQUIPMENT, PULLING OFF PULSE OX WHEN APPLIED.
--- NOTE | 2019-12-10 07:44 | NUR ---
PT PROVIDED WITH CLEAN SCRUB PANTS. PT AMBULATORY WITH STEADY GAIT, PROCEED WITH DC
== END 2019-12-10 07:47 | disposition home or self-care (01) ==
LOC: ED 03:58
DX: F10.120 Alcohol abuse with intoxication, uncomplicated (principal); I10 Essential (primary) hypertension; Y90.9 Presence of alcohol in blood, level not specified; Z90.89 Acquired absence of other organs; Z88.8 Allergy status to other drugs, medicaments and biological substances
CPT/HCPCS: 99283

== ENCOUNTER 2019-12-10 21:38 | Emergency (ER) | payer MEDICAID ==
[~2019-12-10] VITALS: Ht 177.8 cm; Wt 74.0 kg
[2019-12-10 21:40] VITALS: BP 112/72
--- NOTE | 2019-12-10 21:52 | NUR ---
THIS IS A 34 YO MALE BIB [facility] FROM [facility], PT FOUND ON SIDEWALK GROSSLY INTOXICATED AND UNABLE TO AMBULATE. PATIENT IS NON COMMUNICATIVE TO THIS RN, TRYING TO GET OUT OF GURNEY. MONITORING WAS IN PLACE, PATIENT RIPPED SPO2 AND BP CUFF OFF. VSS, ETOH ODOR NOTED. CALL LIGHT IN REACH.
--- NOTE | 2019-12-10 22:35 | NUR ---
PATIENT REFUSING ALL MONITORING EQUIPTMENT, PATIENT IS NOT SPEAKING TO THIS RN. RESPIRATIONS EVEN AND UNLABORED.
--- NOTE | 2019-12-10 23:40 | NUR ---
PATIENT SLEEPING, RIPPED SPO2 SENSOR OFF. RESPIRATIONS EVEN AND UNLABORED.
--- NOTE | 2019-12-11 00:45 | NUR ---
PATIENT SLEEPING, CONTINUING TO RIP SPO2 SENSOR OFF. RESPIRATIONS EVEN AND UNLABORED.
--- NOTE | 2019-12-11 01:23 | NUR ---
ATTEMPTED TO AROUSE PATIENT FOR THE THID TIME, PATIENT STILL NON-COMMUNICATIVE TO THIS RN.
--- NOTE | 2019-12-11 02:00 | NUR ---
PATIENT INSTRUCTED THAT HE NEEDS TO PUT PANTS ON, AND START WAKING UP. PATIENT MADE A VERBAL SOUNDS SUGGESTING THAT HE UNDERSTANDS.
--- NOTE | 2019-12-11 02:53 | NUR ---
REPORT GIVEN TO MACIEL LEBLANC. PLAN OF CARE DISCUSSED
--- NOTE | 2019-12-11 04:19 | NUR ---
PT CONT TO TAKE MONITORING EQUIPMENT OFF WHILE SLEEPING. NO ACUTE DISTRESS NOTED.
--- NOTE | 2019-12-11 04:47 | NUR ---
PT ASSISTED TO PARKING LOT BY SECURITY.
== END 2019-12-11 04:52 | disposition home or self-care (01) ==
LOC: ED 12-11 02:05
DX: F10.220 Alcohol dependence with intoxication, uncomplicated (principal); I10 Essential (primary) hypertension; Z90.89 Acquired absence of other organs; Y90.9 Presence of alcohol in blood, level not specified
CPT/HCPCS: 99283

== ENCOUNTER 2019-12-12 05:25 | Inpatient (IN) | payer MEDICAID ==
[~2019-12-12] VITALS: Ht 170.2 cm; Wt 58.6 kg
--- NOTE | 2019-12-12 05:42 | NUR ---
PT IN BED, PROVIDED WITH WARM BLANKETS. PT REFUSING TO GET DRESSED INTO GOWN. ALSO REFUSES TO ANSWER MOST QUESTIONS. PT STATES "CAN I GET SOME APPLE JUICE?", EDUCATED ON NEED TO BE ASSESSED AND DISPO'D BEFORE HE CAN BE GIVEN ANYTHING TO EAT OR DRINK. PT THEN COVERED HIMSELF IN THE BLANKET PROVIDED AND REFUSED TO SPEAK WITH THIS NURSE ANY FURTHER, QUESTIONS REMAIN UNANSWERED. CALL LIGHT IN REACH.
[2019-12-12] MEDS ORDERED: SODIUM CHLORIDE 0.9% 1,000ML IVBOLUS ONE (06:00)
--- NOTE | 2019-12-12 06:18 | NUR ---
THIS NURSE ATTEMPTED TO START AN IV x 2, LABS AND CULTURES DRAWN, IV PLACEMENT UNSUCCESSFUL. ULTRASOUND LINE REQUESTED. PT TOLERATED WELL. CALL LIGHT IN REACH.
[2019-12-12 06:36] LABS: MEAN CORPUSCULAR HEMOGLOBIN 19.2 pg (27.5-34.5); MEAN CORPUSCULAR VOLUME 64.6 fL (81-97); MEAN PLATELET VOLUME 6.3 fL (7.4-10.4); PLATELET COUNT 581 x10^3/uL (130-400); RED BLOOD COUNT 4.74 x10^6/uL (4.38-5.82); RED CELL DISTRIBUTION WIDTH 22.1 % (9.4-14.8)
--- NOTE | 2019-12-12 06:36 | NUR ---
XRAY AT BEDSIDE. IV FLUIDS INITIATED. PT DENIES ANY FURTHER NEEDS AT THIS TIME, CALL LIGHT IN REACH.
[2019-12-12 06:38] LABS: MEAN CORPUSCULAR HGB CONC 29.8 g/dL (33.2-36.2)
[2019-12-12 06:48] LABS: ALBUMIN 2.5 g/dL (3.4-5.0); ANION GAP 11 mmol/L (5-15); CALCIUM 7.3 mg/dL (8.5-10.1); CHLORIDE 104 mmol/L (98-107)
[2019-12-12 06:49] LABS: MD YES
[2019-12-12 06:52] LABS: ALANINE AMINOTRANSFERASE 191 U/L (12-78); ALKALINE PHOSPHATASE 138 U/L (45-117); ANISOCYTOSIS 2+; BILIRUBIN,TOTAL 0.2 mg/dL (0.2-1.0); CREATININE 0.54 mg/dL (0.7-1.3); EOS#(MANUAL) 0.08 x10^3/uL (0.0-0.4); EOS% (MANUAL) 1 % (1-7); LYMPH#(MANUAL) 1.46 x10^3/uL (1-3.4); LYMPHS% (MANUAL) 18 % (22-44); MICROCYTOSIS 2+; MONOS#(MANUAL) 0.41 x10^3/uL (0.3-2.7); MONOS% (MANUAL) 5 % (2-9); SEG#(MANUAL) 6.16 x10^3/uL (1.8-6.8); SEGS% (MANUAL) 76 % (42-75)
[2019-12-12 06:53] LABS: HYPOCHROMIA 2+; TARGET CELLS 1+
[2019-12-12 06:54] LABS: <PLATELET ESTIMATE> INCREASED; <PLT MORPHOLOGY> NORMAL PLT MORPH
--- NOTE | 2019-12-12 06:54 | NUR ---
PT SLEEPING IN GURNEY WITH IVF BOLUS INFUSING. AWAITING RAD RESULTS.
--- NOTE | 2019-12-12 07:10 | NUR ---
IV ADJUSTED AND WRAPPED IN [place] PER PT REQUEST "I KEEP ROLLING ON IT AND PULLING IT AND I'M AFRAID IT WILL COME OUT"
[2019-12-12] MEDS ORDERED: LORazepam 2 MG/ML, 1ML ONE (08:22)
[2019-12-12] MEDS ORDERED: PLEASE ENTER WEIGHT MC SCH (08:30)
[2019-12-12] MEDS ORDERED: AMPICILLIN/SULBACTAM 3 GM in SODIUM CHLORIDE 0.9% 100 ML IV ONE (08:30)
[2019-12-12] MEDS ORDERED: LORazepam 2 MG/ML, 1ML IVPush ONE (08:30)
--- NOTE | 2019-12-12 08:39 | NUR ---
PT MEDICATED PER JUL, IV ABX STARTED AFTER BLOOD CULTURES DRAWN. HEIGHT AND WEIGHT UPDATED. PT RESTING IN [place] TO SEE.
--- NOTE | 2019-12-12 09:41 | NUR ---
PT RESTING IN [facility] [place], PT CONTINUES TO ASK FOR FOOD AND APPLE JUICE DESPITE BEING EDUCATED MULTIPLE TIMES THAT HE NEEDS TO WAIT TO BE SEEN BY ORTHO MD TO RULE OUT SURGERY. UNK IF PT CONFUSED OR NONCOMPLIANT. PT FOUND AT SINK PRESUMABY DRINKING WATER.
--- NOTE | 2019-12-12 10:19 | NUR ---
REPORT TO MARLENE ST
[2019-12-12 10:40] VITALS: BP 139/81
[2019-12-12] MEDS: SODIUM CHLORIDE 0.9% 1,000 ML IV SCH ×2 (11:19→19:19)
[2019-12-12] MEDS ORDERED: VANCOMYCIN PER PHARMACY MC PRN (11:30)
[2019-12-12] MEDS ORDERED: FOLIC ACID 5 MG/ML IM ONE (11:30)
[2019-12-12] MEDS ORDERED: ONDANSETRON 2MG/ML, 2ML IVPush PRN (11:30)
[2019-12-12] MEDS: MULTIVITAMINS/MINERALS TABLET PO SCH (11:30)
[2019-12-12] MEDS ORDERED: LORazepam 1MG TABLET PO PRN ×2 (11:30)
[2019-12-12] MEDS ORDERED: LORazepam 2 MG/ML, 1ML IV PRN ×4 (11:30)
[2019-12-12] MEDS ORDERED: THIAMINE 200 MG in SODIUM CHLORIDE 0.9% 50 ML IV ONE (11:30)
[2019-12-12] MEDS ORDERED: LORazepam 0.5MG TABLET PO PRN (11:30)
[2019-12-12] MEDS: NICOTINE 21 MG/24 HR PATCH.TD24 TD SCH (11:45)
[2019-12-12] MEDS ORDERED: PHARMACOKINETIC CONSULTATION MC ONE (12:00)
[2019-12-12] MEDS ORDERED: PHARMACOKINETIC MONITORING MC PRN (12:00)
[2019-12-12] MEDS: LORazepam 2 MG/ML, 1ML IV PRN ×4 (12:05→20:55)
[2019-12-12] MEDS: morphine SULFATE 10 MG/ML, 1ML IVPush PRN ×3 (12:05→20:54)
[2019-12-12] MEDS ORDERED: VANCOMYCIN 1,500 MG in SODIUM CHLORIDE 0.9% 250 ML IV ONE (13:00)
[2019-12-12 13:02] VITALS: BP 139/81
[2019-12-12] MEDS: PIPERACILLIN/TAZO/PMX 3.375GM 50 ML IV SCH ×2 (13:46→20:54)
[2019-12-12 15:03] LABS: AMPHETAMINE SCREEN, URINE Negative (Negative); BARBITURATE SCREEN, URINE Negative (Negative); BENZODIAZEPINE SCREEN, URINE Negative (Negative); CANNABINOID SCREEN, URINE Negative (Negative); COCAINE SCREEN, URINE Negative (Negative); METHADONE SCREEN, URINE Negative (Negative); OPIATE SCREEN, URINE Positive (Negative)
[2019-12-12 15:11] VITALS: BP 142/91
[2019-12-12 16:16] LABS: ANION GAP 6 mmol/L (5-15); CALCIUM 7.8 mg/dL (8.5-10.1); CHLORIDE 103 mmol/L (98-107); CREATININE 0.52 mg/dL (0.7-1.3)
[2019-12-12 18:38] VITALS: BP 155/94
[2019-12-12] MEDS: POTASSIUM CHLORIDE 20 MEQ, MAGNESIUM SULFATE 1 GM, MVI ADULT 10 ML, THIAMINE 200 MG, FO... IV SCH (20:29)
[2019-12-12] MEDS ORDERED: OMNIPAQUE 350 MG/ML, 100ML BOTTLE ONE (23:36)
[2019-12-13 00:02] VITALS: BP 139/83
[2019-12-13] MEDS: PIPERACILLIN/TAZO/PMX 3.375GM 50 ML IV SCH ×4 (01:00→19:22)
[2019-12-13] MEDS: SODIUM CHLORIDE 0.9% 1,000 ML IV SCH (03:19)
[2019-12-13] MEDS: LORazepam 2 MG/ML, 1ML IV PRN (04:16)
[2019-12-13] MEDS: morphine SULFATE 10 MG/ML, 1ML IVPush PRN ×3 (04:16→22:01)
[2019-12-13 06:16] LABS: MEAN CORPUSCULAR HEMOGLOBIN 19.4 pg (27.5-34.5); MEAN CORPUSCULAR VOLUME 65.2 fL (81-97); MEAN PLATELET VOLUME 6.8 fL (7.4-10.4); PLATELET COUNT 417 x10^3/uL (130-400); RED BLOOD COUNT 4.71 x10^6/uL (4.38-5.82); RED CELL DISTRIBUTION WIDTH 22.6 % (9.4-14.8)
[2019-12-13 06:37] LABS: ALBUMIN 2.6 g/dL (3.4-5.0); ANION GAP 8 mmol/L (5-15); CALCIUM 8.2 mg/dL (8.5-10.1); CHLORIDE 102 mmol/L (98-107)
[2019-12-13 06:41] LABS: ALANINE AMINOTRANSFERASE 196 U/L (12-78); ALKALINE PHOSPHATASE 149 U/L (45-117); BILIRUBIN,TOTAL 0.8 mg/dL (0.2-1.0); CREATININE 0.66 mg/dL (0.7-1.3); TOTAL PROTEIN 7.1 g/dL (6.4-8.2)
[2019-12-13 06:42] LABS: MD YES; MEAN CORPUSCULAR HGB CONC 29.8 g/dL (33.2-36.2)
[2019-12-13 06:44] LABS: BASOS#(MANUAL) 0.08 x10^3/uL (0-0.1); BASOS% (MANUAL) 1 % (0-1); EOS#(MANUAL) 0.08 x10^3/uL (0.0-0.4); EOS% (MANUAL) 1 % (1-7); LYMPH#(MANUAL) 1.54 x10^3/uL (1-3.4); LYMPHS% (MANUAL) 20 % (22-44); MONOS#(MANUAL) 0.46 x10^3/uL (0.3-2.7); MONOS% (MANUAL) 6 % (2-9); SEG#(MANUAL) 5.54 x10^3/uL (1.8-6.8); SEGS% (MANUAL) 72 % (42-75)
[2019-12-13 06:45] LABS: <PLATELET ESTIMATE> INCREASED; <PLT MORPHOLOGY> NORMAL PLT MORPH; ANISOCYTOSIS 2+; HYPOCHROMIA 2+; MICROCYTOSIS 2+; TARGET CELLS 1+
[2019-12-13] MEDS: LORazepam 1MG TABLET PO PRN ×2 (08:13→21:14)
[2019-12-13] MEDS: MULTIVITAMINS/MINERALS TABLET PO SCH (08:14)
[2019-12-13 08:38] VITALS: BP 130/88
[2019-12-13] MEDS: NICOTINE 21 MG/24 HR PATCH.TD24 TD SCH (12:37)
[2019-12-13] MEDS: HEPARIN 5,000 UNITS/ML, 1ML SQ SCH (12:38)
[2019-12-13 13:33] VITALS: BP 130/86
[2019-12-13] MEDS ORDERED: GADOTERATE 7.5 MMOL/15 ML SYR ONE (17:57)
[2019-12-13] MEDS: THIAMINE 100 MG in SODIUM CHLORIDE 0.9% 50 ML IV SCH (18:33)
[2019-12-13 19:56] VITALS: BP 146/82
[2019-12-13] MEDS: VANCOMYCIN 1,200 MG in SODIUM CHLORIDE 0.9% 250 ML IV SCH (21:09)
[2019-12-13] MEDS: POTASSIUM CHLORIDE 20 MEQ, MAGNESIUM SULFATE 1 GM, MVI ADULT 10 ML, THIAMINE 200 MG, FO... IV SCH (21:10)
[2019-12-14] MEDS: HEPARIN 5,000 UNITS/ML, 1ML SQ SCH ×3 (00:35→23:45)
[2019-12-14] MEDS: ONDANSETRON 2MG/ML, 2ML IV PRN (00:51)
[2019-12-14] MEDS: morphine SULFATE 10 MG/ML, 1ML IVPush PRN ×6 (01:02→20:34)
[2019-12-14] MEDS: PIPERACILLIN/TAZO/PMX 3.375GM 50 ML IV SCH ×4 (01:04→19:48)
[2019-12-14 01:32] VITALS: BP 125/69
[2019-12-14 06:07] LABS: ALANINE AMINOTRANSFERASE 136 U/L (12-78); ALBUMIN 2.2 g/dL (3.4-5.0); ANION GAP 8 mmol/L (5-15); CALCIUM 7.9 mg/dL (8.5-10.1); CHLORIDE 106 mmol/L (98-107)
[2019-12-14 06:10] LABS: ALKALINE PHOSPHATASE 122 U/L (45-117); BILIRUBIN,TOTAL 0.4 mg/dL (0.2-1.0); TOTAL PROTEIN 6.3 g/dL (6.4-8.2)
[2019-12-14 06:17] VITALS: BP 114/71
[2019-12-14 06:28] LABS: MD YES; MEAN CORPUSCULAR HEMOGLOBIN 19.6 pg (27.5-34.5); MEAN CORPUSCULAR HGB CONC 29.5 g/dL (33.2-36.2); MEAN CORPUSCULAR VOLUME 66.4 fL (81-97); MEAN PLATELET VOLUME 6.7 fL (7.4-10.4); PLATELET COUNT 368 x10^3/uL (130-400); RED BLOOD COUNT 4.09 x10^6/uL (4.38-5.82); RED CELL DISTRIBUTION WIDTH 22.5 % (9.4-14.8)
[2019-12-14 07:32] LABS: <PLATELET ESTIMATE> ADEQUATE; <PLT MORPHOLOGY> NORMAL PLT MORPH; ANISOCYTOSIS 2+; EOS#(MANUAL) 0.32 x10^3/uL (0.0-0.4); EOS% (MANUAL) 5 % (1-7); HYPOCHROMIA 2+; LYMPHS% (MANUAL) 27 % (22-44); MICROCYTOSIS 2+; MONOS#(MANUAL) 0.44 x10^3/uL (0.3-2.7); MONOS% (MANUAL) 7 % (2-9); OVALOCYTES 1+; SCHISTOCYTES 1+; SEG#(MANUAL) 3.84 x10^3/uL (1.8-6.8); SEGS% (MANUAL) 61 % (42-75); TEAR DROPS 1+
[2019-12-14] MEDS: MULTIVITAMINS/MINERALS TABLET PO SCH (08:04)
[2019-12-14] MEDS: VANCOMYCIN 1,200 MG in SODIUM CHLORIDE 0.9% 250 ML IV SCH ×2 (10:43→21:14)
[2019-12-14] MEDS: LORazepam 1MG TABLET PO PRN ×2 (11:45→16:11)
[2019-12-14] MEDS: NICOTINE 21 MG/24 HR PATCH.TD24 TD SCH (11:45)
[2019-12-14] MEDS: SODIUM CHLORIDE 0.9% 1,000 ML IV SCH (13:58)
[2019-12-14 14:26] VITALS: BP 121/70
[2019-12-14] MEDS: THIAMINE 100 MG in SODIUM CHLORIDE 0.9% 50 ML IV SCH (16:57)
[2019-12-14] MEDS: MAALOX/HYOSCYAMINE/LIDOCAINE 45 ML BTL PO PRN ×2 (16:57→21:59)
[2019-12-14 19:15] VITALS: BP 124/77
[2019-12-14] MEDS: POTASSIUM CHLORIDE 20 MEQ, MAGNESIUM SULFATE 1 GM, MVI ADULT 10 ML, THIAMINE 200 MG, FO... IV SCH (20:34)
[2019-12-15 00:20] VITALS: BP 135/83
[2019-12-15] MEDS: morphine SULFATE 10 MG/ML, 1ML IVPush PRN ×6 (00:31→20:48)
[2019-12-15] MEDS: PIPERACILLIN/TAZO/PMX 3.375GM 50 ML IV SCH ×4 (02:01→20:47)
[2019-12-15] MEDS: MAALOX/HYOSCYAMINE/LIDOCAINE 45 ML BTL PO PRN ×3 (05:10→21:13)
[2019-12-15] MEDS: SODIUM CHLORIDE 0.9% 1,000 ML IV SCH ×2 (06:19→20:20)
[2019-12-15 07:43] VITALS: BP 127/78
[2019-12-15] MEDS: LORazepam 1MG TABLET PO PRN (08:14)
[2019-12-15] MEDS: MULTIVITAMINS/MINERALS TABLET PO SCH (08:14)
[2019-12-15 09:14] LABS: MEAN CORPUSCULAR HEMOGLOBIN 19.4 pg (27.5-34.5); MEAN CORPUSCULAR VOLUME 66.2 fL (81-97); MEAN PLATELET VOLUME 7.2 fL (7.4-10.4); PLATELET COUNT 307 x10^3/uL (130-400); RED BLOOD COUNT 4.28 x10^6/uL (4.38-5.82); RED CELL DISTRIBUTION WIDTH 22.4 % (9.4-14.8)
[2019-12-15 09:37] LABS: MD YES; MEAN CORPUSCULAR HGB CONC 29.2 g/dL (33.2-36.2)
[2019-12-15 09:39] LABS: ANISOCYTOSIS 2+; EOS#(MANUAL) 0.27 x10^3/uL (0.0-0.4); EOS% (MANUAL) 4 % (1-7); HYPOCHROMIA 2+; LYMPH#(MANUAL) 1.94 x10^3/uL (1-3.4); LYMPHS% (MANUAL) 29 % (22-44); MICROCYTOSIS 2+; MONOS#(MANUAL) 0.34 x10^3/uL (0.3-2.7); MONOS% (MANUAL) 5 % (2-9); SEG#(MANUAL) 4.15 x10^3/uL (1.8-6.8); SEGS% (MANUAL) 62 % (42-75)
[2019-12-15 09:44] LABS: <PLATELET ESTIMATE> ADEQUATE
[2019-12-15 09:45] LABS: <PLT MORPHOLOGY> NORMAL PLT MORPH
[2019-12-15] MEDS: VANCOMYCIN 1,200 MG in SODIUM CHLORIDE 0.9% 250 ML IV SCH ×3 (10:03→23:16)
[2019-12-15 10:10] LABS: CALCIUM 8.3 mg/dL (8.5-10.1); CREATININE 0.71 mg/dL (0.7-1.3)
[2019-12-15 10:13] LABS: ANION GAP 5 mmol/L (5-15); CHLORIDE 101 mmol/L (98-107); VANCOMYCIN,TROUGH 9.2 mcg/mL (5.0-10.0)
[2019-12-15] MEDS: HEPARIN 5,000 UNITS/ML, 1ML SQ SCH (11:30)
[2019-12-15] MEDS: NICOTINE 21 MG/24 HR PATCH.TD24 TD SCH (11:31)
[2019-12-15 13:08] VITALS: BP 129/79
[2019-12-15] MEDS: THIAMINE 100 MG in SODIUM CHLORIDE 0.9% 50 ML IV SCH (16:33)
[2019-12-15 18:28] VITALS: BP 137/90
[2019-12-15] MEDS: LORazepam 2 MG/ML, 1ML IV PRN ×2 (18:41→23:16)
[2019-12-15] MEDS: ONDANSETRON 2MG/ML, 2ML IV PRN (18:41)
[2019-12-15] MEDS: POTASSIUM CHLORIDE 20 MEQ, MAGNESIUM SULFATE 1 GM, MVI ADULT 10 ML, THIAMINE 200 MG, FO... IV SCH (21:14)
[2019-12-16 00:08] VITALS: BP 120/74
[2019-12-16] MEDS: HEPARIN 5,000 UNITS/ML, 1ML SQ SCH ×3 (00:30→23:57)
[2019-12-16] MEDS: morphine SULFATE 10 MG/ML, 1ML IVPush PRN ×2 (00:30→03:50)
[2019-12-16] MEDS: PIPERACILLIN/TAZO/PMX 3.375GM 50 ML IV SCH ×4 (02:07→21:03)
[2019-12-16] MEDS: LORazepam 2 MG/ML, 1ML IV PRN (03:00)
[2019-12-16] MEDS: ONDANSETRON 2MG/ML, 2ML IV PRN (03:50)
[2019-12-16] MEDS: MAALOX/HYOSCYAMINE/LIDOCAINE 45 ML BTL PO PRN ×3 (05:24→21:24)
[2019-12-16 07:21] VITALS: BP 115/67
[2019-12-16] MEDS: HYDROcodone/APAP 5/325 TABLET PO PRN ×4 (09:17→23:58)
[2019-12-16] MEDS: MULTIVITAMINS/MINERALS TABLET PO SCH (09:17)
[2019-12-16] MEDS: VANCOMYCIN 1,200 MG in SODIUM CHLORIDE 0.9% 250 ML IV SCH ×2 (11:52→23:58)
[2019-12-16] MEDS: MUPIROCIN OINT 2%, 22GM TP SCH ×2 (11:52→21:00)
[2019-12-16] MEDS: NICOTINE 21 MG/24 HR PATCH.TD24 TD SCH (12:10)
[2019-12-16 12:52] VITALS: BP 102/65
[2019-12-16] MEDS: THIAMINE 100 MG in SODIUM CHLORIDE 0.9% 50 ML IV SCH (16:39)
[2019-12-16 19:04] VITALS: BP 110/64
[2019-12-16] MEDS: POTASSIUM CHLORIDE 20 MEQ, MAGNESIUM SULFATE 1 GM, MVI ADULT 10 ML, THIAMINE 200 MG, FO... IV SCH (21:03)
[2019-12-17 01:06] VITALS: BP 126/82
[2019-12-17] MEDS: MAALOX/HYOSCYAMINE/LIDOCAINE 45 ML BTL PO PRN ×6 (01:20→22:17)
[2019-12-17] MEDS: PIPERACILLIN/TAZO/PMX 3.375GM 50 ML IV SCH ×2 (02:41→09:43)
[2019-12-17] MEDS: HYDROcodone/APAP 5/325 TABLET PO PRN ×4 (04:02→20:11)
[2019-12-17 07:10] VITALS: BP 114/62
[2019-12-17] MEDS: MULTIVITAMINS/MINERALS TABLET PO SCH (08:08)
[2019-12-17] MEDS: HEPARIN 5,000 UNITS/ML, 1ML SQ SCH (11:58)
[2019-12-17] MEDS: VANCOMYCIN 1,200 MG in SODIUM CHLORIDE 0.9% 250 ML IV SCH (11:58)
[2019-12-17] MEDS: NICOTINE 21 MG/24 HR PATCH.TD24 TD SCH (11:58)
[2019-12-17 12:12] LABS: CLOSTRIDIUM DIFFICILE ANTIGEN POSITIVE; CLOSTRIDIUM DIFFICILE TOXIN NEGATIVE (Negative)
[2019-12-17] MEDS: MUPIROCIN OINT 2%, 22GM TP SCH ×3 (12:30→20:09)
[2019-12-17] MEDS: AMOXICILLIN/CLAV 875-125MG TABLET PO SCH (13:39)
[2019-12-17 16:12] VITALS: BP 117/81
[2019-12-17] MEDS: metroNIDAZOLE 500 MG TABLET PO SCH ×2 (17:10→20:10)
[2019-12-17 19:57] VITALS: BP 123/74
[2019-12-17] MEDS: SULFAMETH./TRIMETHOPRIM DS 800MG/160MG TABLET PO SCH (20:10)
[2019-12-17] MEDS: ONDANSETRON 2MG/ML, 2ML IV PRN (20:11)
[2019-12-18] MEDS: AMOXICILLIN/CLAV 875-125MG TABLET PO SCH (00:21)
[2019-12-18 00:48] VITALS: BP 108/68
[2019-12-18] MEDS: HYDROcodone/APAP 5/325 TABLET PO PRN ×2 (02:22→08:31)
[2019-12-18] MEDS: MAALOX/HYOSCYAMINE/LIDOCAINE 45 ML BTL PO PRN ×2 (05:00→10:58)
[2019-12-18] MEDS: MUPIROCIN OINT 2%, 22GM TP SCH (05:20)
[2019-12-18 07:22] LABS: MEAN CORPUSCULAR HEMOGLOBIN 19.6 pg (27.5-34.5); MEAN CORPUSCULAR VOLUME 67.3 fL (81-97); PLATELET COUNT 370 x10^3/uL (130-400)
[2019-12-18 07:28] VITALS: BP 120/88
[2019-12-18 07:38] LABS: ALANINE AMINOTRANSFERASE 79 U/L (12-78); ALKALINE PHOSPHATASE 173 U/L (45-117); ANION GAP 4 mmol/L (5-15); BILIRUBIN,TOTAL 0.3 mg/dL (0.2-1.0); CHLORIDE 105 mmol/L (98-107); CREATININE 0.72 mg/dL (0.7-1.3)
[2019-12-18 07:39] LABS: MD YES
[2019-12-18 07:40] LABS: CALCIUM 8.7 mg/dL (8.5-10.1); MEAN CORPUSCULAR HGB CONC 29.2 g/dL (33.2-36.2)
[2019-12-18 07:41] LABS: ALBUMIN 2.7 g/dL (3.4-5.0)
[2019-12-18 07:53] LABS: ANISOCYTOSIS 2+; BAND#(MANUAL) 0.06 x10^3/uL; BANDS%(MANUAL) 1 % (0-7); EOS% (MANUAL) 5 % (1-7); HYPOCHROMIA 2+; LYMPH#(MANUAL) 1.74 x10^3/uL (1-3.4); LYMPHS% (MANUAL) 29 % (22-44); MICROCYTOSIS 2+; MONOS% (MANUAL) 5 % (2-9); SEGS% (MANUAL) 60 % (42-75)
[2019-12-18 07:55] LABS: <PLATELET ESTIMATE> ADEQUATE; <PLT MORPHOLOGY> NORMAL PLT MORPH
[2019-12-18 07:56] LABS: OVALOCYTES 1+
[2019-12-18] MEDS: SULFAMETH./TRIMETHOPRIM DS 800MG/160MG TABLET PO SCH (08:30)
[2019-12-18] MEDS: MULTIVITAMINS/MINERALS TABLET PO SCH (08:30)
[2019-12-18] MEDS: metroNIDAZOLE 500 MG TABLET PO SCH (08:31)
[2019-12-18] MEDS: HEPARIN 5,000 UNITS/ML, 1ML SQ SCH ×2 (12:20)
[2019-12-18] MEDS: NICOTINE 21 MG/24 HR PATCH.TD24 TD SCH (12:20)
[2019-12-18 12:44] VITALS: BP 125/87
[2019-12-18] MEDS ORDERED: NICO-487 TD (13:00)
[2019-12-18] MEDS ORDERED: FERR324T5 PO (13:00)
[2019-12-18] MEDS ORDERED: Sulfameth./Trimethoprim Ds PO (13:00)
[2019-12-18] MEDS ORDERED: ACID1TAB7 PO (13:00)
[2019-12-18] MEDS ORDERED: LACTOBACILLUS CHEW TABLET PO SCH (16:00)
== END 2019-12-18 13:29 | disposition home or self-care (01) | DRG 603 ==
LOC: ED 05:33 → 3N 11:02 → 4WST 18:29
PROVIDERS: ADMIT Emergency Medicine; ATTEND Internal Medicine
DX: L03.114 Cellulitis of left upper limb (principal); F10.239 Alcohol dependence with withdrawal, unspecified; K86.1 Other chronic pancreatitis; F11.20 Opioid dependence, uncomplicated; Q45.3 Other congenital malformations of pancreas and pancreatic duct; D50.9 Iron deficiency anemia, unspecified; F17.210 Nicotine dependence, cigarettes, uncomplicated; G89.11 Acute pain due to trauma; I10 Essential (primary) hypertension; K70.9 Alcoholic liver disease, unspecified; B86 Scabies; D64.9 Anemia, unspecified; E86.0 Dehydration; F10.129 Alcohol abuse with intoxication, unspecified; G89.29 Other chronic pain; K20.9 Esophagitis, unspecified; K29.70 Gastritis, unspecified, without bleeding; K44.9 Diaphragmatic hernia without obstruction or gangrene; K59.00 Constipation, unspecified; K76.0 Fatty (change of) liver, not elsewhere classified; L01.00 Impetigo, unspecified; L25.9 Unspecified contact dermatitis, unspecified cause; J45.990 Exercise induced bronchospasm; Z59.0 Homelessness; Z85.07 Personal history of malignant neoplasm of pancreas; Z79.899 Other long term (current) drug therapy; Z87.01 Personal history of pneumonia (recurrent); Z87.81 Personal history of (healed) traumatic fracture; Z87.898 Personal history of other specified conditions
CPT/HCPCS: 36415; 36573; 76700; 80048; 80053; 80202; 80307; 82550; 83605; 84145; 85025; 87040; 87324; G0378; J0295; J1644; J2405; J2543; J3370; J3411; J3475; J3480; Q9967; A9575; C1751; J2060; J2270; J7030; J7050

== ENCOUNTER 2019-12-19 17:41 | Inpatient (IN) | payer MEDICAID ==
[~2019-12-19] VITALS: Ht 165.1 cm; Wt 42.5 kg
[~2019-12-19 17:41] MED LIST changes: +ACID1TAB7 PO; +NICO-487 TD; +Sulfameth./Trimethoprim Ds PO
[2019-12-19] MEDS ORDERED: ONDANSETRON 2MG/ML, 2ML IVPush ONE (18:00)
[2019-12-19] MEDS ORDERED: SODIUM CHLORIDE 0.9% 1,000ML IVBOLUS ONE ×3 (18:00→21:00)
[2019-12-19] MEDS ORDERED: MAGNESIUM SULFATE 1 GM, THIAMINE 100 MG, FOLIC ACID 1 MG, MVI ADULT 10 ML in SODIUM CHL... IV ONE (18:00)
[2019-12-19] MEDS ORDERED: SODIUM CHLORIDE FLUSH 10ML SYR IVF ONE ×2 (18:00→19:00)
--- NOTE | 2019-12-19 18:00 | NUR ---
PT DRINKING WATER DIRECTLY FROM SINK AND THEN VOMITING. PT REFUSING TO STOP.
--- NOTE | 2019-12-19 18:19 | NUR ---
SIGNAL TESTER SPEAKING WITH PT. PT THEN UP TO THE BATHROOM ACROSS FROM ROOM
[2019-12-19 18:24] LABS: ALANINE AMINOTRANSFERASE 106 U/L (12-78); ALBUMIN 3.8 g/dL (3.4-5.0); ANION GAP 26 mmol/L (5-15); CALCIUM 10.3 mg/dL (8.5-10.1); CHLORIDE 103 mmol/L (98-107); CREATININE 4.79 mg/dL (0.7-1.3)
[2019-12-19 18:26] LABS: ALKALINE PHOSPHATASE 199 U/L (45-117); BILIRUBIN,TOTAL 0.4 mg/dL (0.2-1.0)
[2019-12-19 18:52] LABS: MD YES; MEAN CORPUSCULAR HEMOGLOBIN 19.7 pg (27.5-34.5); MEAN CORPUSCULAR VOLUME 67.8 fL (81-97); MEAN PLATELET VOLUME 7.4 fL (7.4-10.4); PLATELET COUNT 751 x10^3/uL (130-400); RED BLOOD COUNT 4.82 x10^6/uL (4.38-5.82); RED CELL DISTRIBUTION WIDTH 24.1 % (9.4-14.8)
[2019-12-19 18:53] LABS: MEAN CORPUSCULAR HGB CONC 29.1 g/dL (33.2-36.2)
[2019-12-19 18:57] LABS: BAND#(MANUAL) 0.17 x10^3/uL; BANDS%(MANUAL) 1 % (0-7); BASOS#(MANUAL) 0.17 x10^3/uL (0-0.1); BASOS% (MANUAL) 1 % (0-1); LYMPH#(MANUAL) 1.53 x10^3/uL (1-3.4); LYMPHS% (MANUAL) 9 % (22-44); MONOS#(MANUAL) 1.53 x10^3/uL (0.3-2.7); MONOS% (MANUAL) 9 % (2-9); SEGS% (MANUAL) 80 % (42-75)
[2019-12-19 19:00] LABS: HYPOCHROMIA 3+; MICROCYTOSIS 2+; POLYCHROMASIA 1+
[2019-12-19 19:01] LABS: OVALOCYTES 1+
[2019-12-19 19:03] LABS: <PLATELET ESTIMATE> INCREASED
--- NOTE | 2019-12-19 19:03 | NUR ---
UPON RETURN FROM BATHROOM PT VOMITED A WHOLE BAG OF WATER. TOLD PT THAT HE CAN LEAVE OR STOP DRINKING WATER IF HE WANTS AN IV WITH MEDICATIONS. REPORT TO TEX ST.
[2019-12-19 19:04] LABS: <PLT MORPHOLOGY> NORMAL PLT MORPH
[2019-12-19 19:06] LABS: TARGET CELLS 1+
[2019-12-19] MEDS ORDERED: D5%-0.45% NACL 1,000 ML IV SCH (19:49)
[2019-12-19] MEDS ORDERED: PROMETHAZINE 25 MG/ML, 1ML IM PRN (20:00)
[2019-12-19] MEDS ORDERED: MELATONIN 5 MG TABLET PO PRN (20:00)
[2019-12-19] MEDS ORDERED: hydrALAzine 20 MG/ML, 1ML IVPush PRN (20:00)
[2019-12-19] MEDS ORDERED: DIPHENHYDRAMINE 25 MG CAPSULE PO PRN (20:00)
[2019-12-19] MEDS ORDERED: ACETAMINOPHEN 325 MG TABLET PO PRN (20:00)
[2019-12-19] MEDS: HEPARIN 5,000 UNITS/ML, 1ML SQ SCH (20:00)
[2019-12-19] MEDS ORDERED: BISACODYL 10 MG SUPP PR PRN (20:00)
[2019-12-19] MEDS ORDERED: POLYETHYLENE GLYCOL 17 GM PACKET PO PRN (20:00)
[2019-12-19] MEDS ORDERED: ONDANSETRON 2MG/ML, 2ML IVPush PRN (20:00)
[2019-12-19] MEDS: AMPICILLIN/SULBACTAM 3 GM in SODIUM CHLORIDE 0.9% 100 ML IV SCH (20:00)
[2019-12-19] MEDS ORDERED: LORazepam 2 MG/ML, 1ML IVPush PRN (20:00)
[2019-12-19] MEDS ORDERED: SODIUM CHLORIDE 0.9% 1,000 ML IV ONE ×2 (20:09→21:31)
[2019-12-19] MEDS ORDERED: PIPERACILLIN/TAZO/PMX 3.375GM 50 ML IV ONE (20:30)
[2019-12-19] MEDS ORDERED: VANCOMYCIN PER PHARMACY MC ONE (20:30)
[2019-12-19] MEDS ORDERED: ONDANSETRON 2MG/ML, 2ML ONE (20:44)
[2019-12-19] MEDS ORDERED: PIPERACILLIN/TAZO/PMX 3.375GM 50 ML ONE (20:44)
[2019-12-19] MEDS ORDERED: LORazepam 2 MG/ML, 1ML ONE (20:45)
--- NOTE | 2019-12-19 21:11 | NUR ---
OUTSOLE MOLDER GAVE REPORT TO CHRISTIANO BERNAL 372. OUTSOLE MOLDER TOLD IN REPORT THAT PT SHOULD RECIEVE DOXYCYCLINE NEXT PER PROVIDER AND MULTIPLE ORDERS PUT IN BY 2 DIFFERENT PROVIDERS. RN AWARE BY OUTSOLE MOLDER PT HAS 1 IV ON LEFT FOREARM. OUTSOLE MOLDER AND OTHER ER STAFF TRIED MULTIPLE TIMES TO GET ANOTHER IV WITHOUT SUCCESS. PT STATED HE HAS HAD A PICC LINE JUST A COUPLE DAYS AGO.
[2019-12-19 21:28] VITALS: BP 107/60
[2019-12-19] MEDS ORDERED: HALOPERIDOL 5 MG/ML IM ONE (22:30)
[2019-12-19] MEDS: morphine SULFATE 10 MG/ML, 1ML IVPush PRN (23:04)
[2019-12-19] MEDS: DOXYCYCLINE 100 MG in DEXTROSE 5% 250 ML IV SCH (23:46)
[2019-12-20 00:12] VITALS: BP 109/65
[2019-12-20] MEDS: HEPARIN 5,000 UNITS/ML, 1ML SQ SCH ×3 (00:15→16:51)
[2019-12-20] MEDS ORDERED: LORazepam 2 MG/ML, 1ML IVPush PRN (01:00)
[2019-12-20] MEDS: morphine SULFATE 10 MG/ML, 1ML IVPush PRN (04:56)
[2019-12-20 05:14] LABS: MICROSCOPIC INDICATED
[2019-12-20 05:21] LABS: CHLORIDE,URINE RANDOM 12 mmol/L; POTASSIUM,URINE RANDOM 72 mmol/L; SODIUM,URINE RANDOM 49 mmol/L
[2019-12-20 05:30] LABS: AMPHETAMINE SCREEN, URINE Positive (Negative); BARBITURATE SCREEN, URINE Negative (Negative); BENZODIAZEPINE SCREEN, URINE Negative (Negative); CANNABINOID SCREEN, URINE Negative (Negative); COCAINE SCREEN, URINE Negative (Negative); METHADONE SCREEN, URINE Negative (Negative); OPIATE SCREEN, URINE Positive (Negative)
[2019-12-20] MEDS: AMPICILLIN/SULBACTAM 3 GM in SODIUM CHLORIDE 0.9% 100 ML IV SCH ×3 (06:00→22:13)
[2019-12-20] MEDS ORDERED: FERR325T18 PO (06:52)
[2019-12-20] MEDS ORDERED: OMEP20CA20 PO (06:52)
[2019-12-20] MEDS ORDERED: ACETAMINOPHEN 325 MG TABLET PO PRN (08:00)
[2019-12-20] MEDS ORDERED: SODIUM CHLORIDE 0.9% 1,000 ML IV SCH (08:00)
[2019-12-20] MEDS: SODIUM CHLORIDE 0.9% 1,000 ML IV SCH (08:24)
[2019-12-20] MEDS: SENNA/DOCUSATE TABLET PO SCH (08:30)
[2019-12-20 08:46] LABS: MEAN CORPUSCULAR HEMOGLOBIN 19.8 pg (27.5-34.5); MEAN CORPUSCULAR VOLUME 67.4 fL (81-97); MEAN PLATELET VOLUME 6.9 fL (7.4-10.4); PLATELET COUNT 552 x10^3/uL (130-400); RED BLOOD COUNT 3.56 x10^6/uL (4.38-5.82); RED CELL DISTRIBUTION WIDTH 23.5 % (9.4-14.8)
[2019-12-20] MEDS ORDERED: MUPIROCIN OINT 2%, 1 GM APPL. TP SCH (09:00)
[2019-12-20 09:27] LABS: MD YES
[2019-12-20 09:29] LABS: BANDS%(MANUAL) 2 % (0-7); MEAN CORPUSCULAR HGB CONC 29.4 g/dL (33.2-36.2)
[2019-12-20 09:31] LABS: <PLATELET ESTIMATE> INCREASED; <PLT MORPHOLOGY> NORMAL PLT MORPH; LYMPH#(MANUAL) 2.73 x10^3/uL (1-3.4); LYMPHS% (MANUAL) 27 % (22-44); MONOS#(MANUAL) 0.51 x10^3/uL (0.3-2.7); MONOS% (MANUAL) 5 % (2-9); SEG#(MANUAL) 6.67 x10^3/uL (1.8-6.8); SEGS% (MANUAL) 66 % (42-75)
[2019-12-20 09:32] LABS: ANISOCYTOSIS 1+; HYPOCHROMIA 2+; MICROCYTOSIS 2+; POLYCHROMASIA 1+
[2019-12-20 09:45] VITALS: BP 103/52
[2019-12-20] MEDS: THIAMINE 100MG TABLET PO SCH ×2 (10:08→21:29)
[2019-12-20] MEDS: HALOPERIDOL 5 MG/ML IM PRN ×2 (10:10→21:29)
[2019-12-20] MEDS: MUPIROCIN OINT 2%, 22GM TP SCH ×2 (10:12→17:44)
[2019-12-20] MEDS: DOXYCYCLINE 100 MG in DEXTROSE 5% 250 ML IV SCH ×2 (11:12→23:17)
[2019-12-20] MEDS ORDERED: NICOTINE 21 MG/24 HR PATCH.TD24 TD ONE (13:00)
[2019-12-20 13:26] LABS: ALANINE AMINOTRANSFERASE 103 U/L (12-78); ALBUMIN 2.8 g/dL (3.4-5.0); ANION GAP 5 mmol/L (5-15); CALCIUM 8.3 mg/dL (8.5-10.1); CHLORIDE 107 mmol/L (98-107); CREATININE 2.38 mg/dL (0.7-1.3)
[2019-12-20 13:28] LABS: ALKALINE PHOSPHATASE 134 U/L (45-117); BILIRUBIN,TOTAL 0.2 mg/dL (0.2-1.0); TOTAL PROTEIN 6.5 g/dL (6.4-8.2)
[2019-12-20 15:20] VITALS: BP 108/77
[2019-12-20] MEDS: LACTOBACILLUS CHEW TABLET PO SCH ×2 (16:51→21:29)
[2019-12-20 18:20] VITALS: BP 138/60
[2019-12-20] MEDS: FAMOTIDINE 20 MG TABLET PO SCH (21:29)
[2019-12-21 00:54] VITALS: BP 127/72
[2019-12-21] MEDS: SODIUM CHLORIDE 0.9% 1,000 ML IV SCH ×2 (02:36→15:07)
[2019-12-21] MEDS: HEPARIN 5,000 UNITS/ML, 1ML SQ SCH ×2 (04:45→15:07)
[2019-12-21] MEDS: AMPICILLIN/SULBACTAM 3 GM in SODIUM CHLORIDE 0.9% 100 ML IV SCH (06:05)
[2019-12-21 07:48] VITALS: BP 154/94
[2019-12-21] MEDS: LACTOBACILLUS CHEW TABLET PO SCH ×3 (08:38→21:47)
[2019-12-21] MEDS: SENNA/DOCUSATE TABLET PO SCH (08:38)
[2019-12-21] MEDS: FAMOTIDINE 20 MG TABLET PO SCH ×2 (08:38→21:47)
[2019-12-21] MEDS: THIAMINE 100MG TABLET PO SCH ×2 (08:38→21:47)
[2019-12-21] MEDS: MUPIROCIN OINT 2%, 22GM TP SCH ×2 (11:05→15:46)
[2019-12-21 11:07] LABS: ALANINE AMINOTRANSFERASE 286 U/L (12-78); ALBUMIN 2.7 g/dL (3.4-5.0); ANION GAP 3 mmol/L (5-15); CALCIUM 8.7 mg/dL (8.5-10.1); CHLORIDE 109 mmol/L (98-107)
[2019-12-21 11:09] LABS: ALKALINE PHOSPHATASE 120 U/L (45-117); BILIRUBIN,TOTAL 0.2 mg/dL (0.2-1.0); TOTAL PROTEIN 6.1 g/dL (6.4-8.2)
[2019-12-21 11:14] LABS: MEAN CORPUSCULAR HEMOGLOBIN 19.2 pg (27.5-34.5); MEAN CORPUSCULAR VOLUME 67.2 fL (81-97); MEAN PLATELET VOLUME 6.8 fL (7.4-10.4); PLATELET COUNT 636 x10^3/uL (130-400); RED BLOOD COUNT 3.69 x10^6/uL (4.38-5.82); RED CELL DISTRIBUTION WIDTH 23.6 % (9.4-14.8)
[2019-12-21 11:43] LABS: MD YES; MEAN CORPUSCULAR HGB CONC 28.5 g/dL (33.2-36.2)
[2019-12-21 11:45] LABS: ANISOCYTOSIS 1+; LYMPH#(MANUAL) 1.23 x10^3/uL (1-3.4); LYMPHS% (MANUAL) 28 % (22-44); MICROCYTOSIS 2+; MONOS#(MANUAL) 0.26 x10^3/uL (0.3-2.7); MONOS% (MANUAL) 6 % (2-9); SEGS% (MANUAL) 66 % (42-75)
[2019-12-21 11:46] LABS: HYPOCHROMIA 2+; OVALOCYTES 1+; POLYCHROMASIA 1+
[2019-12-21 11:47] LABS: <PLATELET ESTIMATE> INCREASED; <PLT MORPHOLOGY> NORMAL PLT MORPH; TARGET CELLS 1+
[2019-12-21 13:00] VITALS: BP 130/78
[2019-12-21] MEDS ORDERED: FERROUS SULFATE 325 MG TABLET PO SCH (14:00)
[2019-12-21 19:43] VITALS: BP 138/78
[2019-12-21] MEDS: HYDROmorphone 1 MG/ML, 1ML INJ IV PRN (21:48)
[2019-12-22 00:43] VITALS: BP 147/69
[2019-12-22] MEDS: HYDROmorphone 1 MG/ML, 1ML INJ IV PRN (03:18)
[2019-12-22] MEDS: HEPARIN 5,000 UNITS/ML, 1ML SQ SCH (03:19)
[2019-12-22 05:07] LABS: % IRON SATURATION 2 % (20-55); ALANINE AMINOTRANSFERASE 196 U/L (12-78); ALBUMIN 2.6 g/dL (3.4-5.0); ALKALINE PHOSPHATASE 106 U/L (45-117); BILIRUBIN,TOTAL 0.2 mg/dL (0.2-1.0); IRON LEVEL 8 mcg/dL (65-175); TOTAL IRON BINDING CAPACITY 344 mcg/dL (250-450); TOTAL PROTEIN 6.2 g/dL (6.4-8.2)
[2019-12-22 05:08] LABS: BILIRUBIN, DIRECT < 0.1 mg/dL (0.1-0.2); BILIRUBIN,INDIRECT 0.1 mg/dL (0.0-2.0)
[2019-12-22] MEDS: SODIUM CHLORIDE 0.9% 1,000 ML IV SCH (05:08)
[2019-12-22] MEDS: MUPIROCIN OINT 2%, 22GM TP SCH (08:01)
[2019-12-22] MEDS: FAMOTIDINE 20 MG TABLET PO SCH (08:01)
[2019-12-22] MEDS: THIAMINE 100MG TABLET PO SCH (08:01)
[2019-12-22] MEDS: LACTOBACILLUS CHEW TABLET PO SCH (08:01)
[2019-12-22] MEDS: SENNA/DOCUSATE TABLET PO SCH (08:01)
[2019-12-22 08:22] VITALS: BP 120/72
[2019-12-22] MEDS ORDERED: ACETAMINOPHEN 325 MG TABLET PO PRN (08:30)
[2019-12-22] MEDS ORDERED: MUPI22OI2 TP (10:25)
[2019-12-22 10:40] LABS: OCCULT BLOOD NEGATIVE (NEGATIVE)
== END 2019-12-22 14:09 | disposition home or self-care (01) | DRG 872 ==
LOC: ED 18:48 → 3N 21:25 → INTOOBSV 21:25 → OBSVTOIN 21:25 → 3N 21:38
PROVIDERS: ADMIT Family Medicine; ATTEND Internal Medicine
DX: A41.9 Sepsis, unspecified organism (principal); F10.239 Alcohol dependence with withdrawal, unspecified; L03.114 Cellulitis of left upper limb; N17.9 Acute kidney failure, unspecified; D50.9 Iron deficiency anemia, unspecified; E83.52 Hypercalcemia; E86.0 Dehydration; F10.229 Alcohol dependence with intoxication, unspecified; F32.9 Major depressive disorder, single episode, unspecified; I10 Essential (primary) hypertension; G89.29 Other chronic pain; K20.8 Other esophagitis; K29.20 Alcoholic gastritis without bleeding; K70.10 Alcoholic hepatitis without ascites; R65.20 Severe sepsis without septic shock; T63.301A Toxic effect of unspecified spider venom, accidental (unintentional), initial encounter; F17.200 Nicotine dependence, unspecified, uncomplicated; F19.10 Other psychoactive substance abuse, uncomplicated; Z71.6 Tobacco abuse counseling; Z85.07 Personal history of malignant neoplasm of pancreas
CPT/HCPCS: 36415; 71045; 74176; 76770; 80053; 80076; 80307; 81001; 82272; 82436; 82550; 83540; 83550; 83605; 83690; 84133; 84145; 84300; 85025; 87040; 87086; 93005; G0378; J0295; J1170; J1644; J2405; J3411; J3475; J7060; J1630; J2060; J2270; J7030

== ENCOUNTER 2019-12-24 22:05 | Emergency (ER) | payer MEDICAID ==
[~2019-12-24] VITALS: Ht 170.2 cm; Wt 59.0 kg
[~2019-12-24 22:05] MED LIST changes: +FERR325T18 PO; +MUPI22OI2 TP; +OMEP20CA20 PO
--- NOTE | 2019-12-24 22:10 | NUR ---
pt BIB [facility] being found by [employer] laying in the street. per report pt initially had no c/o, but then stated that he wanted detox from methadone. upon admit, pt reports that he has been off of his methadone for about 1 week. pt then states that he has swelling to L hand. pt has mulitple scabs to L hand an it is swollen, but no red streaks, no drainage. pt is afebrile. CMS intact. pt denies ETOH or drug use today. pt is drowsy and not cooperative with assessment questions. pt is unkempt and malodorous. wearing hospital socks with his shoes. no family at bedside no apparent resp. distress
[2019-12-24 22:54] VITALS: BP 116/71
== END 2019-12-24 23:06 | disposition home or self-care (01) ==
LOC: ED 23:00
DX: M79.89 Other specified soft tissue disorders (principal); F11.10 Opioid abuse, uncomplicated; E83.52 Hypercalcemia; I10 Essential (primary) hypertension; F17.210 Nicotine dependence, cigarettes, uncomplicated; Z72.9 Problem related to lifestyle, unspecified; Z90.89 Acquired absence of other organs; Z85.07 Personal history of malignant neoplasm of pancreas
CPT/HCPCS: 99283; 99406

== ENCOUNTER 2020-01-02 16:45 | Emergency (ER) | payer MEDICAID ==
[~2020-01-02] VITALS: Ht 170.2 cm; Wt 60.0 kg
[2020-01-02 16:52] VITALS: BP 110/74
--- NOTE | 2020-01-02 17:02 | NUR ---
IMAGING AT BEDSIDE. PT NONCOOPERATIVE.
== END 2020-01-02 18:09 | disposition home or self-care (01) ==
LOC: ED 17:30
DX: S60.222A Contusion of left hand, initial encounter (principal); Z72.9 Problem related to lifestyle, unspecified; Z59.0 Homelessness; I10 Essential (primary) hypertension; F17.200 Nicotine dependence, unspecified, uncomplicated; Z90.89 Acquired absence of other organs; W18.30XA Fall on same level, unspecified, initial encounter; Y93.89 Activity, other specified; Y92.410 Unspecified street and highway as the place of occurrence of the external cause; Y99.8 Other external cause status
CPT/HCPCS: 99283

== ENCOUNTER 2020-01-03 11:26 | Emergency (ER) | payer MEDICAID ==
[~2020-01-03] VITALS: Ht 165.1 cm; Wt 65.0 kg
--- NOTE | 2020-01-03 11:31 | NUR ---
THIS IS A 34 YO M BIB EMS W/ C/O ETOH. PT SEEN YESTERDAY FOR SAME. PT AMBULATED TO [facility] W/ ASSISTANCE FROM EMS. PT RESTING ON [facility] W/ CALL LIGHT IN REACH, VSS, CONNECTED TO MONITORING. SIDE RAILS UPX2. NADN. AWAITING ED EVAL.
[2020-01-03] MEDS ORDERED: CEFAZOLIN 1,000 MG IM ONE (12:00)
--- NOTE | 2020-01-03 12:02 | NUR ---
PT FOUND TO BE SITTING ON FLOOR IN ROOM, PT RETURNED SELF TO [facility]. NO NEW LACS OR HEMATOMA'S OBSERVED ON HEAD. VSS, NADN. UPDATED. PT RESTING ON [facility] W/ CALL LIGHT IN REACH AND SIDE RAILS UPX2. PT REEDUCATED ON NEED TO STAY ON [facility] AND CALL FOR ASSISTANCE.
[2020-01-03] MEDS ORDERED: CEFAZOLIN 1,000 MG ONE (12:11)
--- NOTE | 2020-01-03 12:34 | NUR ---
PT PULLING MONITORING OFF ATTEMPTING TO GET OUT OF BED. ASSISTED W/ URINAL. PT RETURNED TO [facility] W/ CALL LIGHT IN REACH. SIDE RAILS UPX2. PROVIDED W/ WARM BLANKET FOR COMFORT.
--- NOTE | 2020-01-03 12:49 | NUR ---
PT OUT OF BED USING URINAL W/ ASSISTANCE FROM SITTER. PT TRANSFERED TO ROOM 2 FOR CONVEINCE OF SITTER. RESTING ON [employer] W/ CALL LIGHT IN REACH, CONNECTED TO MONITORING, VSS, NADN.
[2020-01-03 13:41] VITALS: BP 108/68
--- NOTE | 2020-01-03 13:42 | NUR ---
BREAK RN FOR PRIMARY RN JAYCEE. PT RESTING COMFORTABLY, RIGHT LATERAL, HEAD OF BED ELEVATED. VSS. 95% RA. RESP REGULAR AND UNLABORED. PT DROWSY, DOZING INTERMITTENTLY, AROUSES TO VERBAL STIMULI.FALL PRECAUTIONS IN PLACE. SIDE RAILS UPX2. SITTER AT DOOR FOR SAFETY OBSERVATION.
--- NOTE | 2020-01-03 14:17 | NUR ---
BREAK RN. BEDSIDE REPORT AND TRANSFER OF CARE BACK TO PRIMARY RN JAYCEE AT THIS TIME. PT PROVIDED CRACKERS PER REQUEST AND ERP OKAY, TOLERATING WELL. DECLINES OFFER FOR PO FLUIDS, "I'M NOT THIRSTY NOW." VSS.
--- NOTE | 2020-01-03 16:00 | NUR ---
PT SLEEPING ON GURNEY W/ CALL LIGHT IN REACH AND SIDE RAILS UPX2. RESP EVEN AND UNLABORED, FRED.
--- NOTE | 2020-01-03 16:10 | NUR ---
pt provided w/ meal tray to go.
--- NOTE | 2020-01-03 16:10 | NUR ---
Patient given discharge instructions and they have confirmed that they understand the instructions. Patient ambulatory with steady gait.
== END 2020-01-03 16:11 | disposition home or self-care (01) ==
LOC: ED 12:03
DX: T23.251A Burn of second degree of right palm, initial encounter (principal); T31.0 Burns involving less than 10% of body surface; G31.2 Degeneration of nervous system due to alcohol; L03.113 Cellulitis of right upper limb; I10 Essential (primary) hypertension; Z88.8 Allergy status to other drugs, medicaments and biological substances; Z90.89 Acquired absence of other organs; Z85.07 Personal history of malignant neoplasm of pancreas
CPT/HCPCS: 96372; 99283; J0690

== ENCOUNTER 2020-01-05 19:16 | Emergency (ER) | payer MEDICAID ==
[~2020-01-05] VITALS: Ht 177.8 cm; Wt 75.0 kg
[2020-01-05 19:20] VITALS: BP 123/75
--- NOTE | 2020-01-05 20:10 | NUR ---
PT SLEEPING IN VIEW OF NURSES STATION, RESPIRATIONS EVEN AND UNLABORED, NO COMPLAINTS AT THIS TIME
--- NOTE | 2020-01-05 21:53 | NUR ---
PT EATING AND DRINKING WITH NO COMPLAINTS
--- NOTE | 2020-01-05 22:02 | NUR ---
PT REQUESTING TO LEAVE, ABULATES WITHOUT ASSISTANCE, BUS PASS GIVEN ON REQUEST.
[2020-01-06] MEDS ORDERED: HYDROcodone/APAP 5/325 TABLET ONE (01:39)
== END 2020-01-05 22:07 | disposition home or self-care (01) ==
LOC: ED 22:02
DX: F10.229 Alcohol dependence with intoxication, unspecified (principal); R41.82 Altered mental status, unspecified; Z72.9 Problem related to lifestyle, unspecified; Y90.9 Presence of alcohol in blood, level not specified
CPT/HCPCS: 99283

== ENCOUNTER 2020-01-06 16:11 | Emergency (ER) | payer MEDICAID ==
[~2020-01-06] VITALS: Ht 167.6 cm; Wt 65.0 kg
--- NOTE | 2020-01-06 16:12 | NUR ---
Bib by kayla after [employer] call. presumed intoxication (smells of etoh, but w/ hx of heroin use as well) Room air pox of 89-90- keep staking nasal cannula off
[2020-01-06 16:13] VITALS: BP 123/74
--- NOTE | 2020-01-06 16:21 | NUR ---
RECEIVED REPORT FROM ADALBERTO ST. PT PANTS REMOVED AND COVERED WITH SHEET. URINAL PLACED WITHIN REACH. CALL LIGHT IN REACH.
--- NOTE | 2020-01-06 17:08 | NUR ---
PER MD, PT TO BE MTF
--- NOTE | 2020-01-06 17:52 | NUR ---
PT RESTING COMFORTABLY ON GURNEY. FRED.
--- NOTE | 2020-01-06 19:27 | NUR ---
TASK RN: PT RESTING W EYES CLOSED. EASILY ARROUSABLE TO VOICE AND LIGHT PHYSICAL STIM. PT A&OX4 AND AMBULATORY WO ASSISTANCE. DC EDUCATION PROVIDED, PT DEMONSTRATES UNDERSTANDING.PT AMBULATED STEADILY TO DC WITH RN. PT DRESSD APPROPRIATELY FOR WEATHER. BUS PASS PROVIDED FOR SAFE TRANSPORT.
== END 2020-01-06 19:29 | disposition home or self-care (01) ==
LOC: MERGE 16:11 → EDBD 16:11 → ED 19:20
DX: F10.220 Alcohol dependence with intoxication, uncomplicated (principal); Y90.9 Presence of alcohol in blood, level not specified
CPT/HCPCS: 99283

== ENCOUNTER 2020-01-10 02:57 | Emergency (ER) | payer MEDICAID ==
[~2020-01-10] VITALS: Ht 170.2 cm; Wt 61.4 kg
[2020-01-10 02:59] VITALS: BP 128/82
--- NOTE | 2020-01-10 03:11 | NUR ---
PT BIB EMS. STATES HAVING "SPIDER BITE" 3 WEEKS AGO AND WENT TO [place] BUT "THEY DID DO ANYTHING FOR ME". PT GIVEN 600 MG IBUPROFEN AND ICE PACK PER EMS. PT STATES NO CURRENT MEDICATIONS, NO ABX, AND IS IN 6/10 PAIN. DENIES ETOH OR DRUG USE TODAY. PT WITH FLAT AFFECT, ONE WORD ANSWERS, AND STATES JUST WANTING "A WARM BLANKET". PATIENT GIVEN SHEET, ERP SAW PT, SAFETY MEASURES IN PLACE, MONITORS IN PLACE.
== END 2020-01-10 03:28 | disposition home or self-care (01) ==
LOC: ED 03:26
DX: S60.512A Abrasion of left hand, initial encounter (principal); F10.20 Alcohol dependence, uncomplicated; I10 Essential (primary) hypertension; F17.210 Nicotine dependence, cigarettes, uncomplicated; Z72.9 Problem related to lifestyle, unspecified; Z90.89 Acquired absence of other organs; W57.XXXA Bitten or stung by nonvenomous insect and other nonvenomous arthropods, initial encounter; Y93.89 Activity, other specified; Y92.89 Other specified places as the place of occurrence of the external cause; Y99.8 Other external cause status; Y90.0 Blood alcohol level of less than 20 mg/100 ml
CPT/HCPCS: 99283; 99406

== ENCOUNTER 2020-01-13 02:39 | Emergency (ER) | payer MEDICAID ==
[~2020-01-13] VITALS: Ht 177.8 cm; Wt 62.0 kg
--- NOTE | 2020-01-13 03:12 | NUR ---
pt bib [facility] for etoh. pt was found laying on ground, Pt refusing to answer questions at this time. nad, vss, pt repeatedly attempting to crawl out. Maame ORTEGA at bs for eval and poc
[2020-01-13] MEDS ORDERED: ZIPRASIDONE 20 MG INJ IM ONE ×2 (03:16→03:30)
--- NOTE | 2020-01-13 03:23 | NUR ---
pt repeatedly crawling out of bed, trying to leave room, pt unsteady on feet at this time. spitting on wall and floor despite being told not to. erp aware. wctm.
--- NOTE | 2020-01-13 04:11 | NUR ---
pt repeatedly getting up, pt is restless and wont stay still, pt spitting across floors and riojas in ed room, pt nad, still unsteady, pt ripping on bp/spo2/ecg monitoring repeatedly. wctm.
--- NOTE | 2020-01-13 05:25 | NUR ---
pt maneuvered put of bed repeatedly despite multiple measures to reorient or get pt to stay in bed. pt unsteady when out of bed, nad, assisted back to bed repeatedly. melissa. mtf.
--- NOTE | 2020-01-13 05:26 | NUR ---
pt refusing bp at this time.
--- NOTE | 2020-01-13 05:46 | NUR ---
pt assisted to use urinal, nad, appears comfortable, pt still attempting to get up out of bed. pt is notfully coherent and still grossly intoxicated. wctm. mtf
--- NOTE | 2020-01-13 06:21 | NUR ---
sitter in door way for additional safety precaution
--- NOTE | 2020-01-13 07:01 | NUR ---
bedside report to kely rn, pt care transferred at this time.
--- NOTE | 2020-01-13 07:15 | NUR ---
Report from Lisa ST. Pt resting in bed with eyes closed, resp even and unlabored. Pt refusing VS monitoring. Sitter within eyesight of pt, all safety measures observed.
--- NOTE | 2020-01-13 07:45 | NUR ---
Restraints removed from pt. All safety measures observed. Pt resting in bed with eyes closed, resp even and unlabored, NADN. Meal tray ordered for pt.
--- NOTE | 2020-01-13 08:49 | NUR ---
Meal tray delivered. Sitter no longer required. Pt calm, cooperative, NADN.
--- NOTE | 2020-01-13 10:26 | NUR ---
PT AMBULATING WITHIN ROOM, GAIT STEADY.
[2020-01-13 10:31] VITALS: BP 144/77
== END 2020-01-13 12:27 | disposition home or self-care (01) ==
LOC: ED 04:01
DX: F10.120 Alcohol abuse with intoxication, uncomplicated (principal); F11.10 Opioid abuse, uncomplicated; F15.10 Other stimulant abuse, uncomplicated; L03.114 Cellulitis of left upper limb; F17.200 Nicotine dependence, unspecified, uncomplicated; I10 Essential (primary) hypertension; Z72.9 Problem related to lifestyle, unspecified; Y90.9 Presence of alcohol in blood, level not specified; Z85.07 Personal history of malignant neoplasm of pancreas
CPT/HCPCS: 73130; 96372; 99285; J3486

== ENCOUNTER 2020-01-16 12:16 | Emergency (ER) | payer MEDICAID ==
[~2020-01-16] VITALS: Ht 170.2 cm; Wt 59.1 kg
[2020-01-16 12:25] VITALS: BP 101/67
--- NOTE | 2020-01-16 12:25 | NUR ---
PT BIB [facility] FOR C/O L SHOULDER ABSCESS/WOUND THAT STARTED 2 DAYS AGO. PT HAS SCAR TISSUE TO THE AREA; PER EMS, PT HAD A BLOOD CLOT REMOVED THERE A YEAR AGO. PT STATES HE STARTED PICKING AT IT AND IT WAS DRAINING PUS. PT ALSO HAS MULTIPLE SORES TO HIS HANDS THAT HE STATES HE'S BEEN PICKING AT. PT C/O HIS L HAND BEING NUMB AND SWOLLEN X1 MONTH. HR 120s. PT DENIES DRUG OR ETOH USE SINCE HE [facility]ED [facility] 6 MONTHS AGO. ERP AT BS IMMEDIATELY. PT WITH REPETITIVE QUESTIONS, REQUESTING ABX FOR WOUNDS.
--- NOTE | 2020-01-16 12:49 | NUR ---
PT RETURNS FROM XR.
--- NOTE | 2020-01-16 13:07 | NUR ---
PT AMBULATED TO BR WITHOUT DIFFICULTY. ARMS SHAKY.
--- NOTE | 2020-01-16 13:25 | NUR ---
D/C INSTRUCTIONS, MEDS & F/U APPT RV'WD WITH PT, HE VERBALIZES UNDERSTANDING. BANDAGES AND GAUZE PROVIDED TO PT PER HIS REQUEST. PT AMBULATED OUT OF ED WITHOUT DIFFICULTY.
== END 2020-01-16 13:26 | disposition home or self-care (01) ==
LOC: ED 12:33
DX: L03.114 Cellulitis of left upper limb (principal); L03.113 Cellulitis of right upper limb
CPT/HCPCS: 99283

== ENCOUNTER 2020-01-24 06:15 | Emergency (ER) | payer MEDICAID ==
[~2020-01-24] VITALS: Ht 170.2 cm; Wt 56.9 kg
[2020-01-24 06:18] VITALS: BP 125/88
--- NOTE | 2020-01-24 06:31 | NUR ---
ERP TO BEDSIDE.
== END 2020-01-24 06:49 | disposition home or self-care (01) ==
LOC: ED 06:32
DX: L98.499 Non-pressure chronic ulcer of skin of other sites with unspecified severity (principal); I10 Essential (primary) hypertension
CPT/HCPCS: 99283

== ENCOUNTER 2020-01-26 15:22 | Emergency (ER) | payer MEDICAID ==
[~2020-01-26] VITALS: Ht 175.3 cm; Wt 75.0 kg
--- NOTE | 2020-01-26 16:00 | NUR ---
RN AND PROVIDER WITNESSED PT URINATE ON FLOOR AFTER BEING TOLD TO USE THE URNAL AND NOT TO PEE ON THE FLOOR. URINAL WAS 6 INCHS FROM PT HAND AT TIME OF INCEDENT. PT LAUGHED AFTER DOING IT.
[2020-01-26 17:21] VITALS: BP 114/71
== END 2020-01-26 17:51 | disposition home or self-care (01) ==
LOC: ED 17:45
DX: F10.120 Alcohol abuse with intoxication, uncomplicated (principal); F15.129 Other stimulant abuse with intoxication, unspecified; F11.129 Opioid abuse with intoxication, unspecified; R41.82 Altered mental status, unspecified; F17.200 Nicotine dependence, unspecified, uncomplicated; I10 Essential (primary) hypertension; Z72.9 Problem related to lifestyle, unspecified; Y90.0 Blood alcohol level of less than 20 mg/100 ml
CPT/HCPCS: 99283

== ENCOUNTER 2020-01-26 21:16 | Emergency (ER) | payer MEDICAID ==
[~2020-01-26] VITALS: Ht 180.3 cm; Wt 71.0 kg
[2020-01-26 21:21] VITALS: BP 142/85
== END 2020-01-26 21:42 | disposition left against medical advice (07) ==
LOC: ED 21:35
DX: F10.10 Alcohol abuse, uncomplicated (principal); Y90.0 Blood alcohol level of less than 20 mg/100 ml; Z53.21 Procedure and treatment not carried out due to patient leaving prior to being seen by health care provider

== ENCOUNTER 2020-01-27 06:15 | Emergency (ER) | payer MEDICAID ==
[~2020-01-27] VITALS: Ht 172.7 cm; Wt 61.4 kg
[2020-01-27] MEDS ORDERED: SODIUM CHLORIDE 0.9% 1,000ML IVBOLUS ONE (06:30)
[2020-01-27] MEDS ORDERED: PLEASE ENTER HEIGHT AND WEIGHT MC SCH (06:30)
[2020-01-27] MEDS ORDERED: THIAMINE 100 MG in SODIUM CHLORIDE 0.9% 50 ML IVPB ONE (06:30)
--- NOTE | 2020-01-27 07:06 | NUR ---
Report given to MACIEL Reyes
--- NOTE | 2020-01-27 07:19 | NUR ---
Assumed care of pt. Pt letheragic, mummbles and does not answer orientation question or follow majority of commands. Gurney at lowest position with bed rails up for safety. Frequent rounding in place. Lab at bedside trying to obtain blood without sucess at this time. IVF running through right IJ
[2020-01-27 08:10] LABS: ALANINE AMINOTRANSFERASE 21 U/L (12-78); ALBUMIN 2.6 g/dL (3.4-5.0); ANION GAP 7 mmol/L (5-15); CALCIUM 7.1 mg/dL (8.5-10.1); CHLORIDE 114 mmol/L (98-107); CREATININE 0.42 mg/dL (0.7-1.3)
[2020-01-27 08:11] LABS: MEAN CORPUSCULAR HEMOGLOBIN 19.1 pg (27.5-34.5); MEAN CORPUSCULAR HGB CONC 28.5 g/dL (33.2-36.2); RED BLOOD COUNT 4.56 x10^6/uL (4.38-5.82); RED CELL DISTRIBUTION WIDTH 24.1 % (9.4-14.8)
[2020-01-27 08:13] LABS: ALKALINE PHOSPHATASE 113 U/L (45-117); BILIRUBIN,TOTAL 0.2 mg/dL (0.2-1.0); TOTAL PROTEIN 6.8 g/dL (6.4-8.2)
--- NOTE | 2020-01-27 08:35 | NUR ---
Blood Alcohol of 0.457, Reported to MD. No orders at this time
[2020-01-27 08:41] LABS: MEAN PLATELET VOLUME 5.4 fL (7.4-10.4)
[2020-01-27 08:42] LABS: MD YES; PLATELET COUNT 1040 x10^3/uL (130-400)
[2020-01-27 08:45] LABS: BASOS#(MANUAL) 0.06 x10^3/uL (0-0.1); BASOS% (MANUAL) 1 % (0-1); LYMPH#(MANUAL) 1.29 x10^3/uL (1-3.4); LYMPHS% (MANUAL) 23 % (22-44); MONOS#(MANUAL) 0.17 x10^3/uL (0.3-2.7); MONOS% (MANUAL) 3 % (2-9); SEG#(MANUAL) 4.09 x10^3/uL (1.8-6.8); SEGS% (MANUAL) 73 % (42-75)
[2020-01-27 08:46] LABS: <PLATELET ESTIMATE> INCREASED; <PLT MORPHOLOGY> NORMAL PLT MORPH; ANISOCYTOSIS 1+; HYPOCHROMIA 2+; MICROCYTOSIS 2+; OVALOCYTES 1+; POLYCHROMASIA 1+; TARGET CELLS 1+
--- NOTE | 2020-01-27 09:25 | NUR ---
pt asleep with unlabored respitation. Monitor in place
[2020-01-27 10:38] VITALS: BP 116/73
--- NOTE | 2020-01-27 10:49 | NUR ---
pt refused discharge paperwork. Verbally discussed discharge paperwork with pt, pt does not verbalize understanding or desire to learn. Offered pt a Taxi vocher, pt refused stated that he would just "go downtown." pt ambulated out of the ED in no distress with a steady gait.
== END 2020-01-27 11:02 | disposition home or self-care (01) ==
LOC: ED 10:57
DX: F10.229 Alcohol dependence with intoxication, unspecified (principal); D53.9 Nutritional anemia, unspecified; D47.3 Essential (hemorrhagic) thrombocythemia; Y90.0 Blood alcohol level of less than 20 mg/100 ml
CPT/HCPCS: 36415; 80053; 80307; 85025; 96365; 96366; 99284; J3411; J7030

== ENCOUNTER 2020-01-27 13:54 | Emergency (ER) | payer MEDICAID ==
[~2020-01-27] VITALS: Ht 172.7 cm; Wt 61.4 kg
[2020-01-27 14:03] VITALS: BP 126/90
--- NOTE | 2020-01-27 14:06 | NUR ---
PT FOUND INTOXICATED AT [facility], HERE EARLIER TODAY FOR SAME, VSS. BG 117 PT ARROUSABLE, ASKING FOR PILLOW AND BLANKET. AWAITING ERMD EVAL
--- NOTE | 2020-01-27 15:20 | NUR ---
PT CONTINUES TO REST ON GURNEY, VISIBLE CHEST RISE AND FALL NOTED.
--- NOTE | 2020-01-27 15:40 | NUR ---
PT FOUND WALKING IN HALLS, ATTEMPTED TO ESCORT PT BACK TO . PT REFUSED, WALKED OUT AMBULANCE DOORS. ERMD MADE AWARE. PT WAS WITH STEADY GAIT
== END 2020-01-27 16:14 | disposition home or self-care (01) ==
LOC: ED 14:58
DX: F10.229 Alcohol dependence with intoxication, unspecified (principal); R41.82 Altered mental status, unspecified; Y90.0 Blood alcohol level of less than 20 mg/100 ml
CPT/HCPCS: 99283

== ENCOUNTER 2020-01-28 11:04 | Inpatient (IN) | payer MEDICAID ==
[~2020-01-28] VITALS: Ht 170.2 cm; Wt 54.7 kg
[2020-01-28] MEDS ORDERED: SODIUM CHLORIDE FLUSH 10ML SYR IVF ONE (11:30)
--- NOTE | 2020-01-28 11:50 | NUR ---
PT TO CT VIA [facility]
[2020-01-28] MEDS ORDERED: SODIUM CHLORIDE 0.9% 1,000ML IVBOLUS ONE (12:00)
[2020-01-28 12:04] LABS: MEAN CORPUSCULAR HEMOGLOBIN 19.3 pg (27.5-34.5); MEAN CORPUSCULAR VOLUME 65.7 fL (81-97); MEAN PLATELET VOLUME 5.5 fL (7.4-10.4); PLATELET COUNT 882 x10^3/uL (130-400); RED BLOOD COUNT 4.34 x10^6/uL (4.38-5.82); RED CELL DISTRIBUTION WIDTH 23.5 % (9.4-14.8)
--- NOTE | 2020-01-28 12:06 | NUR ---
PT BACK TO ROOM FROM CT.
[2020-01-28 12:09] LABS: ALBUMIN 2.7 g/dL (3.4-5.0); ANION GAP 12 mmol/L (5-15); CALCIUM 8.3 mg/dL (8.5-10.1); CHLORIDE 102 mmol/L (98-107); CREATININE 0.78 mg/dL (0.7-1.3)
[2020-01-28 12:20] LABS: ALANINE AMINOTRANSFERASE 24 U/L (12-78); ALKALINE PHOSPHATASE 111 U/L (45-117); BILIRUBIN,TOTAL 0.2 mg/dL (0.2-1.0); TOTAL PROTEIN 6.9 g/dL (6.4-8.2)
[2020-01-28 12:22] LABS: MD YES
[2020-01-28 12:24] LABS: LYMPH#(MANUAL) 0.62 x10^3/uL (1-3.4); LYMPHS% (MANUAL) 6 % (22-44); MONOS#(MANUAL) 0.21 x10^3/uL (0.3-2.7); MONOS% (MANUAL) 2 % (2-9); SALICYLATE LEVEL < 1.7 mg/dL (2.8-20.0); SEG#(MANUAL) 9.57 x10^3/uL (1.8-6.8); SEGS% (MANUAL) 92 % (42-75)
[2020-01-28 12:25] LABS: ANISOCYTOSIS 1+; HYPOCHROMIA 2+; MICROCYTOSIS 2+; OVALOCYTES 1+; POLYCHROMASIA 1+
[2020-01-28 12:26] LABS: <PLATELET ESTIMATE> INCREASED; <PLT MORPHOLOGY> NORMAL PLT MORPH; TEAR DROPS 1+
[2020-01-28] MEDS ORDERED: SODIUM CHLORIDE 0.9% 1,000 ML IV ONE (12:27)
[2020-01-28] MEDS ORDERED: SODIUM CHLORIDE FLUSH 10ML SYR IVF PRN (12:30)
[2020-01-28 12:33] LABS: MEAN CORPUSCULAR HGB CONC 29.3 g/dL (33.2-36.2)
[2020-01-28] MEDS ORDERED: SODIUM CHLORIDE 0.9% 1,000 ML IV SCH (12:52)
--- NOTE | 2020-01-28 12:58 | NUR ---
PT TRYING TO GET OUT OF BED. PT REORIENTED AND TOLD TO CALL BEFORE GETTING UP. SIDE RAILS UP, BED IN LOWEST POSITION, AND CALL LIGHT WITHIN REACH.
[2020-01-28] MEDS ORDERED: ONDANSETRON ODT 4 MG PO PRN (13:00)
[2020-01-28] MEDS ORDERED: LORazepam 1MG TABLET PO PRN ×2 (13:00)
[2020-01-28] MEDS ORDERED: FERROUS SULFATE 325 MG TABLET PO SCH (13:00)
[2020-01-28] MEDS ORDERED: LORazepam 0.5MG TABLET PO PRN (13:00)
[2020-01-28] MEDS ORDERED: ONDANSETRON 2MG/ML, 2ML IVPush PRN (13:00)
[2020-01-28] MEDS ORDERED: LORazepam 2 MG/ML, 1ML IV PRN ×2 (13:00)
[2020-01-28] MEDS ORDERED: ACETAMINOPHEN 325 MG TABLET ONE (13:12)
[2020-01-28] MEDS ORDERED: LORazepam 2 MG/ML, 1ML ONE ×3 (13:48→14:58)
[2020-01-28] MEDS: LORazepam 2 MG/ML, 1ML IV PRN (13:55)
--- NOTE | 2020-01-28 14:52 | NUR ---
PT RESTING IN GURNEY, REPOSITIONING SELF FREQUENTLY.
--- NOTE | 2020-01-28 15:52 | NUR ---
GAVE REPORT TO MACIEL PISANO.
[2020-01-28 16:15] VITALS: BP 114/59
[2020-01-28] MEDS: ENOXAPARIN 40 MG/0.4 ML SQ SCH (16:56)
[2020-01-28] MEDS: FERROUS SULFATE 325 MG TABLET PO SCH (16:57)
[2020-01-28] MEDS: ACETAMINOPHEN 325 MG TABLET PO PRN (16:57)
[2020-01-28] MEDS: SUCRALFATE 1 GM TABLET PO SCH ×2 (16:57→20:30)
[2020-01-28] MEDS: NICOTINE 21 MG/24 HR PATCH.TD24 TD SCH (16:57)
[2020-01-28] MEDS: CHLORDIAZEPOXIDE 25 MG CAPSULE PO SCH ×2 (16:57→23:14)
[2020-01-28] MEDS: LACTOBACILLUS CHEW TABLET PO SCH ×2 (16:57→20:30)
[2020-01-28 19:23] VITALS: BP 131/72
[2020-01-29 00:17] LABS: AMPHETAMINE SCREEN, URINE Negative (Negative); BARBITURATE SCREEN, URINE Negative (Negative); BENZODIAZEPINE SCREEN, URINE Positive (Negative); CANNABINOID SCREEN, URINE Negative (Negative); OPIATE SCREEN, URINE Negative (Negative)
[2020-01-29 00:40] VITALS: BP 117/69
[2020-01-29 00:53] LABS: COCAINE SCREEN, URINE Negative (Negative); METHADONE SCREEN, URINE Negative (Negative)
[2020-01-29] MEDS: CHLORDIAZEPOXIDE 25 MG CAPSULE PO SCH ×4 (05:12→22:32)
[2020-01-29 05:25] LABS: ANION GAP 5 mmol/L (5-15); CALCIUM 8.7 mg/dL (8.5-10.1); CHLORIDE 102 mmol/L (98-107)
[2020-01-29 05:27] LABS: CREATININE 0.52 mg/dL (0.7-1.3)
[2020-01-29 05:44] LABS: MEAN CORPUSCULAR HEMOGLOBIN 19.3 pg (27.5-34.5); MEAN CORPUSCULAR VOLUME 66.4 fL (81-97); MEAN PLATELET VOLUME 5.9 fL (7.4-10.4); PLATELET COUNT 677 x10^3/uL (130-400); RED BLOOD COUNT 3.97 x10^6/uL (4.38-5.82)
[2020-01-29 05:46] LABS: MEAN CORPUSCULAR HGB CONC 29.1 g/dL (33.2-36.2)
[2020-01-29 06:17] LABS: MD YES
[2020-01-29 06:19] LABS: <PLATELET ESTIMATE> INCREASED; <PLT MORPHOLOGY> NORMAL PLT MORPH; ANISOCYTOSIS 1+; EOS#(MANUAL) 0.09 x10^3/uL (0.0-0.4); EOS% (MANUAL) 1 % (1-7); HYPOCHROMIA 2+; LYMPH#(MANUAL) 0.52 x10^3/uL (1-3.4); LYMPHS% (MANUAL) 6 % (22-44); METAMYELOCYTES# (MANUAL) 0.09 x10^3/uL (0-0); METAMYELOCYTES% (MANUAL) 1 % (0-1); MICROCYTOSIS 2+; MONOS#(MANUAL) 0.69 x10^3/uL (0.3-2.7); MONOS% (MANUAL) 8 % (2-9); OVALOCYTES 1+; POLYCHROMASIA 1+; SEG#(MANUAL) 7.22 x10^3/uL (1.8-6.8); SEGS% (MANUAL) 84 % (42-75)
[2020-01-29] MEDS: LACTOBACILLUS CHEW TABLET PO SCH ×3 (08:35→21:03)
[2020-01-29] MEDS: OMEPRAZOLE 20 MG CAPSULE.DR PO SCH (08:36)
[2020-01-29] MEDS: THIAMINE 100MG TABLET PO SCH (08:36)
[2020-01-29] MEDS: SUCRALFATE 1 GM TABLET PO SCH ×3 (08:36→21:03)
[2020-01-29] MEDS ORDERED: METHADONE 40 MG TABLET.SOL PO SCH (09:00)
[2020-01-29 12:09] VITALS: BP 129/82
[2020-01-29] MEDS: NICOTINE 21 MG/24 HR PATCH.TD24 TD SCH (16:30)
[2020-01-29] MEDS: ENOXAPARIN 40 MG/0.4 ML SQ SCH (16:31)
[2020-01-29] MEDS: ACETAMINOPHEN 325 MG TABLET PO PRN ×2 (16:31→22:32)
[2020-01-29 19:43] VITALS: BP 135/78
[2020-01-30 00:33] VITALS: BP 139/89
[2020-01-30] MEDS: LORazepam 2 MG/ML, 1ML IV PRN (00:40)
[2020-01-30 04:51] LABS: % IRON SATURATION 3 % (20-55); IRON LEVEL 9 mcg/dL (65-175); TOTAL IRON BINDING CAPACITY 330 mcg/dL (250-450)
[2020-01-30 04:57] LABS: MEAN CORPUSCULAR HEMOGLOBIN 19.3 pg (27.5-34.5); MEAN CORPUSCULAR VOLUME 67.2 fL (81-97); MEAN PLATELET VOLUME 6.2 fL (7.4-10.4); PLATELET COUNT 600 x10^3/uL (130-400); RED BLOOD COUNT 4.13 x10^6/uL (4.38-5.82); RED CELL DISTRIBUTION WIDTH 23.4 % (9.4-14.8)
[2020-01-30 04:58] LABS: MEAN CORPUSCULAR HGB CONC 28.6 g/dL (33.2-36.2)
[2020-01-30 05:13] LABS: MD YES
[2020-01-30 05:15] LABS: EOS#(MANUAL) 0.13 x10^3/uL (0.0-0.4); EOS% (MANUAL) 2 % (1-7); LYMPH#(MANUAL) 1.47 x10^3/uL (1-3.4); LYMPHS% (MANUAL) 22 % (22-44); MONOS#(MANUAL) 0.07 x10^3/uL (0.3-2.7); MONOS% (MANUAL) 1 % (2-9); SEG#(MANUAL) 5.03 x10^3/uL (1.8-6.8); SEGS% (MANUAL) 75 % (42-75)
[2020-01-30 05:16] LABS: ANISOCYTOSIS 1+; HYPOCHROMIA 1+; MICROCYTOSIS 2+; OVALOCYTES 1+; POLYCHROMASIA 1+
[2020-01-30 05:17] LABS: <PLATELET ESTIMATE> INCREASED; <PLT MORPHOLOGY> NORMAL PLT MORPH
[2020-01-30] MEDS: ACETAMINOPHEN 325 MG TABLET PO PRN ×2 (06:11→18:29)
[2020-01-30] MEDS: CHLORDIAZEPOXIDE 25 MG CAPSULE PO SCH ×3 (06:12→17:33)
[2020-01-30 07:13] VITALS: BP 134/91
[2020-01-30] MEDS: SUCRALFATE 1 GM TABLET PO SCH ×2 (08:06→16:29)
[2020-01-30] MEDS: THIAMINE 100MG TABLET PO SCH (08:06)
[2020-01-30] MEDS: LACTOBACILLUS CHEW TABLET PO SCH ×2 (08:06→16:47)
[2020-01-30] MEDS: OMEPRAZOLE 20 MG CAPSULE.DR PO SCH (08:06)
[2020-01-30 12:59] VITALS: BP 132/62
[2020-01-30] MEDS: ENOXAPARIN 40 MG/0.4 ML SQ SCH (16:29)
[2020-01-30] MEDS: NICOTINE 21 MG/24 HR PATCH.TD24 TD SCH (16:29)
[2020-01-30] MEDS: FERROUS SULFATE 325 MG TABLET PO SCH (16:29)
[2020-01-30 19:15] VITALS: BP 139/66
[2020-01-30] MEDS ORDERED: CARVEDILOL 3.125 MG TABLET PO SCH (21:00)
== END 2020-01-30 23:32 | disposition left against medical advice (07) | DRG 101 ==
LOC: ED 12:41 → EDIP 12:52 → 4WST 15:54
PROVIDERS: ADMIT Internal Medicine; ATTEND Internal Medicine
DX: R56.9 Unspecified convulsions (principal); F10.239 Alcohol dependence with withdrawal, unspecified; K86.1 Other chronic pancreatitis; R65.10 Systemic inflammatory response syndrome (SIRS) of non-infectious origin without acute organ dysfunction; D47.3 Essential (hemorrhagic) thrombocythemia; D50.9 Iron deficiency anemia, unspecified; I10 Essential (primary) hypertension; K20.9 Esophagitis, unspecified; K29.70 Gastritis, unspecified, without bleeding; F19.10 Other psychoactive substance abuse, uncomplicated; Z72.0 Tobacco use
CPT/HCPCS: 36415; 70450; 71045; 80048; 80053; 80307; 83540; 83550; 85025; 93005; 96374; G0378; J1650; J2060; J7030

== ENCOUNTER 2020-01-31 04:59 | Emergency (ER) | payer MEDICAID ==
[~2020-01-31] VITALS: Ht 170.2 cm; Wt 60.0 kg
[2020-01-31 05:06] VITALS: BP 110/72
--- NOTE | 2020-01-31 05:13 | NUR ---
A&o x4. States he fell and cracked head open x6 hours and had seizure with associated coughing up blood after. No lac noted to head. Pt slurring words, denies drinking. Denies pain. PERRLA. Neurologically in tact, see neuro assessment for additional details. No dried blood noted in mouth. (+) CYR, states, "I'm not sure if I lost consciousness or not." Denies chest pain/abd pain/fever/chills. Denies fever/chills. Insists on ambulating from wheelchair to stretcher without assistance, will not let this RN help him change into gown. Call light placed within reach.
--- NOTE | 2020-01-31 05:21 | NUR ---
ED provider at bedside
--- NOTE | 2020-01-31 06:28 | NUR ---
Resting comfortably on stretcher. Provided urinal. Call light within reach. Pt states he was admitted to [facility] yesterday and left AMA. States, "I left because I thought I was better but I guess not." Continues to deny drinking/drug use to this RN
[2020-01-31 06:45] LABS: AMPHETAMINE SCREEN, URINE Negative (Negative); BARBITURATE SCREEN, URINE Negative (Negative); BENZODIAZEPINE SCREEN, URINE Positive (Negative); CANNABINOID SCREEN, URINE Negative (Negative); COCAINE SCREEN, URINE Negative (Negative); OPIATE SCREEN, URINE Negative (Negative)
[2020-01-31 06:48] LABS: METHADONE SCREEN, URINE Negative (Negative)
== END 2020-01-31 07:01 | disposition home or self-care (01) ==
LOC: ED 05:59
DX: G31.2 Degeneration of nervous system due to alcohol (principal); R11.10 Vomiting, unspecified; M79.89 Other specified soft tissue disorders; R51 Headache; I10 Essential (primary) hypertension
CPT/HCPCS: 36415; 80307; 99283

== ENCOUNTER 2020-02-02 05:35 | Emergency (ER) | payer MEDICAID ==
[~2020-02-02] VITALS: Ht 170.2 cm; Wt 59.0 kg
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
--- NOTE | 2020-02-02 06:20 | NUR ---
OPHTHALMIC AIDE: PT. AMBULATING AROUND HALLS IN ED WIHT STEADY GAIT. PER DR. ENGEL PT. TO BE DISCHARGED WHEN ABLE TO AMBULATE STADILY. PT. AMBULATED INTO ED WITH STEADY GAIT ON ARRIVAL. PT. NOW REFUSING TO LEAVE ED. SECURITY CALLED TO ESCORT PT. OUT OF ED.
[2020-02-02 06:23] VITALS: BP 137/86
--- NOTE | 2020-02-02 06:24 | NUR ---
Pt refusing discharge, Pt escorted off unit by security with belongings and provided taxi voucher
== END 2020-02-02 06:26 | disposition home or self-care (01) ==
LOC: ED 06:01
DX: G31.2 Degeneration of nervous system due to alcohol (principal)
CPT/HCPCS: 99283

== ENCOUNTER 2020-02-04 10:12 | Emergency (ER) | payer MEDICAID ==
[~2020-02-04] VITALS: Ht 167.6 cm; Wt 56.8 kg
[2020-02-04 10:14] VITALS: BP 112/81
[2020-02-04] MEDS ORDERED: hydrOXyzine 50MG TABLET ONE (10:24)
[2020-02-04] MEDS ORDERED: CEPH-376 PO (15:10)
== END 2020-02-04 10:56 | disposition home or self-care (01) ==
LOC: ED 10:46
DX: L85.3 Xerosis cutis (principal); I10 Essential (primary) hypertension; F17.200 Nicotine dependence, unspecified, uncomplicated; Z90.89 Acquired absence of other organs
CPT/HCPCS: 99283; Q0177

== ENCOUNTER 2020-02-04 14:36 | Emergency (ER) | payer MEDICAID ==
[~2020-02-04] VITALS: Ht 170.2 cm; Wt 60.0 kg
[2020-02-04 14:58] VITALS: BP 110/69
--- NOTE | 2020-02-04 15:03 | NUR ---
PT QUESTIONABLE HISTORIAN. DENIES ETOH INTAKE, ILLEGAL OR MARIJUANA DRUG USE. PT FREQUENTLY PICKING AT SORES & DROPPING SKIN PARTS ON THE FLOOR. SYRINGE IN PT POCKET; INSTRUCTED PT TO REMOVE SYRINGE & PLACE ON TABLE. PT PROCEEDED TO USE NEEDLE TO POKE AT LT LAT SHOULDER WOUND, THEN PUT SYRINGE IN SHARPS BOX.
[2020-02-04] MEDS ORDERED: CEPH-376 PO (15:10)
--- NOTE | 2020-02-04 15:10 | NUR ---
UNABLE TO COMPLETE MED REC DUE TO PT'S QUESTIONABLE REPORTING.
== END 2020-02-04 15:35 | disposition home or self-care (01) ==
LOC: ED 14:53
DX: M79.642 Pain in left hand (principal); R00.0 Tachycardia, unspecified; I10 Essential (primary) hypertension; E11.9 Type 2 diabetes mellitus without complications; Z90.89 Acquired absence of other organs; Z85.07 Personal history of malignant neoplasm of pancreas
CPT/HCPCS: 99283

== ENCOUNTER 2020-02-14 17:05 | Emergency (ER) | payer MEDICAID ==
[~2020-02-14] VITALS: Ht 170.2 cm; Wt 61.4 kg
[~2020-02-14 17:05] MED LIST changes: +CEPH-376 PO
[2020-02-14] MEDS ORDERED: PLEASE ENTER HEIGHT AND WEIGHT MC SCH (17:29)
[2020-02-14] MEDS ORDERED: SODIUM CHLORIDE 0.9% 1,000ML IVBOLUS ONE ×2 (17:30→19:30)
[2020-02-14] MEDS ORDERED: THIAMINE 100 MG in SODIUM CHLORIDE 0.9% 50 ML IV ONE (18:00)
[2020-02-14 18:07] LABS: MEAN CORPUSCULAR HEMOGLOBIN 20.6 pg (27.5-34.5); MEAN CORPUSCULAR HGB CONC 30.3 g/dL (33.2-36.2); MEAN PLATELET VOLUME 5.9 fL (7.4-10.4); RED BLOOD COUNT 4.73 x10^6/uL (4.38-5.82); RED CELL DISTRIBUTION WIDTH 25.5 % (9.4-14.8)
[2020-02-14 18:12] LABS: ALBUMIN 2.8 g/dL (3.4-5.0); ANION GAP 11 mmol/L (5-15); CALCIUM 8.7 mg/dL (8.5-10.1); CHLORIDE 94 mmol/L (98-107)
--- NOTE | 2020-02-14 18:12 | NUR ---
PT INSTRUCTED MULTIPLE TIMES TO KEEP MONITORING EQUIPMENT ON. PT REFUSES TO COOPERATE.
[2020-02-14 18:17] LABS: ALANINE AMINOTRANSFERASE 13 U/L (12-78); ALKALINE PHOSPHATASE 120 U/L (45-117); BILIRUBIN,TOTAL 0.1 mg/dL (0.2-1.0); CREATININE 0.81 mg/dL (0.7-1.3); SALICYLATE LEVEL < 1.7 mg/dL (2.8-20.0); TOTAL PROTEIN 6.9 g/dL (6.4-8.2)
[2020-02-14 18:26] VITALS: BP 111/69
[2020-02-14 18:36] LABS: PLATELET COUNT 1134 x10^3/uL (130-400)
--- NOTE | 2020-02-14 18:59 | NUR ---
PT REFUSING IV ATTEMPTS. ATTEMPTED TWICE NO SUCCESS.
[2020-02-14 19:10] LABS: BAND#(MANUAL) 0.25 x10^3/uL; BANDS%(MANUAL) 5 % (0-7); LYMPH#(MANUAL) 1.45 x10^3/uL (1-3.4); LYMPHS% (MANUAL) 29 % (22-44); MD YES; MONOS% (MANUAL) 8 % (2-9); SEGS% (MANUAL) 58 % (42-75)
[2020-02-14 19:11] LABS: ANISOCYTOSIS 1+; HYPOCHROMIA 1+; MICROCYTOSIS 2+; POLYCHROMASIA 1+
[2020-02-14 19:12] LABS: <PLATELET ESTIMATE> INCREASED; <PLT MORPHOLOGY> NORMAL PLT MORPH; OVALOCYTES 1+
== END 2020-02-14 19:25 | disposition left against medical advice (07) ==
LOC: ED 18:35
DX: F10.20 Alcohol dependence, uncomplicated (principal); F41.9 Anxiety disorder, unspecified; R56.9 Unspecified convulsions; I10 Essential (primary) hypertension; E11.9 Type 2 diabetes mellitus without complications; R00.0 Tachycardia, unspecified; F17.210 Nicotine dependence, cigarettes, uncomplicated; Z72.9 Problem related to lifestyle, unspecified; Z90.89 Acquired absence of other organs; Y90.0 Blood alcohol level of less than 20 mg/100 ml
CPT/HCPCS: 36415; 70450; 80053; 80307; 85025; 93005; 99285; 99406

== ENCOUNTER 2020-02-15 03:45 | Emergency (ER) | payer MEDICAID ==
[~2020-02-15] VITALS: Ht 157.5 cm; Wt 78.0 kg
--- NOTE | 2020-02-15 05:10 | NUR ---
PT SLEEPING, RR EQUAL AND UNLABORED. VSS. SIDE RAILS UP, CALL [facility] IN REACH. SAFETY CHECK COMPLETE
--- NOTE | 2020-02-15 06:03 | NUR ---
PT SLEEPING, RR EQUAL AND UNLABORED. SIDE RAILS UP. WILL CONTINUE TO MONITOR.
[2020-02-15 06:04] VITALS: BP 124/78
--- NOTE | 2020-02-15 06:37 | NUR ---
SLEEPING, NO CHANGE IN ASSESSMENT. RAILS UP, CALL [facility] IN REACH.
--- NOTE | 2020-02-15 06:45 | NUR ---
Report received from MACIEL Lopez
--- NOTE | 2020-02-15 07:31 | NUR ---
PT RECIEVED DISCHARGE INSTRUCTIONS AND EDUCATION. PT AMBULATED TO DC DESK, STEADY GAIT.
== END 2020-02-15 07:39 ==
LOC: ED 03:45
DX: F10.120 Alcohol abuse with intoxication, uncomplicated (principal); I10 Essential (primary) hypertension; E11.9 Type 2 diabetes mellitus without complications; Y90.0 Blood alcohol level of less than 20 mg/100 ml
CPT/HCPCS: 99283

== ENCOUNTER 2020-02-15 08:22 | Emergency (ER) | payer MEDICAID ==
[~2020-02-15] VITALS: Ht 170.2 cm; Wt 60.0 kg
--- NOTE | 2020-02-15 08:36 | NUR ---
pt placed in gown on monitor
--- NOTE | 2020-02-15 08:51 | NUR ---
PT BIB AMBULANCE C/O ALCOHOL INTOXICATION. PT FOUND DOWN AT [facility] AFTER DRINKING AN UNKNOWN AMOUNT OF WHISKEY. PT GRIMACED WITH AMMONIA INHALANT BUT NOT RESPONSIVE OTHERWISE. VSS.
--- NOTE | 2020-02-15 09:51 | NUR ---
PT RESTING WITH EYES CLOSED. BREATH EVEN AND UNLABORED. SPO2 RA 93%.
--- NOTE | 2020-02-15 11:30 | NUR ---
PT RESTING WITH EYES CLOSED. EVEN RISE AND FALL OF CHEST NOTED. ALL NEEDS MET AT THIS TIME. VSS.
--- NOTE | 2020-02-15 11:44 | NUR ---
PT NOW ROUSING TO VOICE. PT CONFUSED ABOUT WHERE HE WAS AND WAS ADVISED HE WAS IN THE HOSPITAL. PT LAST REMEMBERS BEING AT A CASINO.
--- NOTE | 2020-02-15 12:00 | NUR ---
PT UOB AND VOIDING IN THE TRASH CAN. ASKED PT TO GET DRESSED. WILL RE-EVALUATE
--- NOTE | 2020-02-15 12:09 | NUR ---
PT LYING IN BED BOTH RAILS UP AND EYES OPEN AT THIS TIME, BREATHING EVEN AND UNLABORED.
[2020-02-15 14:03] VITALS: BP 101/56
--- NOTE | 2020-02-15 14:04 | NUR ---
PT GIVEN ED DISCHARGE INSTRUCTIONS AND EDUCATION. PT AMBULATED TO DC DESK, STEADY GAIT.
== END 2020-02-15 14:07 | disposition home or self-care (01) ==
LOC: ED 08:29
DX: F10.120 Alcohol abuse with intoxication, uncomplicated (principal); E11.9 Type 2 diabetes mellitus without complications; I10 Essential (primary) hypertension; Y90.0 Blood alcohol level of less than 20 mg/100 ml
CPT/HCPCS: 99285

== ENCOUNTER 2020-02-20 16:41 | Emergency (ER) | payer MEDICAID ==
[~2020-02-20] VITALS: Ht 170.2 cm; Wt 62.0 kg
[2020-02-20 16:47] VITALS: BP 105/62
--- NOTE | 2020-02-20 16:58 | NUR ---
PT IN XRAY AT THIS TIME.
--- NOTE | 2020-02-20 17:47 | NUR ---
Patient given discharge instructions and they have confirmed that they understand the instructions. Patient ambulatory with steady gait.
== END 2020-02-20 17:47 | disposition home or self-care (01) ==
LOC: ED 17:30
DX: G89.11 Acute pain due to trauma (principal); M25.512 Pain in left shoulder; E11.9 Type 2 diabetes mellitus without complications; W01.0XXA Fall on same level from slipping, tripping and stumbling without subsequent striking against object, initial encounter; Y93.89 Activity, other specified; Y92.89 Other specified places as the place of occurrence of the external cause; Y99.8 Other external cause status
CPT/HCPCS: 99283

== ENCOUNTER 2020-03-06 15:28 | Emergency (ER) | payer MEDICAID ==
[~2020-03-06] VITALS: Ht 172.7 cm; Wt 65.0 kg
--- NOTE | 2020-03-06 18:45 | NUR ---
PT PULLED BACK FROM LOBBY FOR NEW VS. PT AMBULATORY WITH A STEADY GAIT FROM LOBBY TO TRIAGE.
[2020-03-06 18:47] VITALS: BP 108/70
== END 2020-03-06 20:11 | disposition home or self-care (01) ==
LOC: ED 20:05
DX: M25.512 Pain in left shoulder (principal); M79.89 Other specified soft tissue disorders
CPT/HCPCS: 99282

== ENCOUNTER 2020-03-15 22:32 | Emergency (ER) | payer MEDICAID ==
[~2020-03-15] VITALS: Ht 175.3 cm; Wt 75.0 kg
[2020-03-15 22:34] VITALS: BP 127/84
--- NOTE | 2020-03-15 22:50 | NUR ---
SEEN BY ERP, WILL BE MTF, NO COMPLAINTS AT THIS TIME, RESTING IN VIEW OF THE NURSES STATION.
== END 2020-03-15 23:57 | disposition home or self-care (01) ==
LOC: ED 23:26
DX: F10.120 Alcohol abuse with intoxication, uncomplicated (principal); F15.10 Other stimulant abuse, uncomplicated; F11.10 Opioid abuse, uncomplicated; E11.9 Type 2 diabetes mellitus without complications; I10 Essential (primary) hypertension; F17.210 Nicotine dependence, cigarettes, uncomplicated; J45.909 Unspecified asthma, uncomplicated; Z90.89 Acquired absence of other organs; Z72.9 Problem related to lifestyle, unspecified; Y90.0 Blood alcohol level of less than 20 mg/100 ml
CPT/HCPCS: 99283

== ENCOUNTER 2020-03-17 00:27 | Emergency (ER) | payer MEDICAID ==
--- NOTE | 2020-03-17 00:39 | NUR ---
pt not in lobby when called for triage.
--- NOTE | 2020-03-17 00:49 | NUR ---
NIL X2
--- NOTE | 2020-03-17 00:59 | NUR ---
NIL X 3
== END 2020-03-17 01:01 | disposition left against medical advice (07) ==
LOC: ED 01:00
DX: Z53.21 Procedure and treatment not carried out due to patient leaving prior to being seen by health care provider (principal)

== ENCOUNTER 2020-03-17 01:14 | Emergency (ER) | payer MEDICAID ==
[~2020-03-17] VITALS: Ht 170.2 cm; Wt 57.0 kg
[2020-03-17 01:18] VITALS: BP 135/90
--- NOTE | 2020-03-17 01:46 | NUR ---
PT STS WANTS TO LEAVE, PT GOT UP REMOVED PULSE OX AND STS HE IS GOING TO GET SOME BANDAIDS AT THE CLINIC HE HATES THE HOSPITAL. PT AMB THROUGH ER STEADILY NO ASSIST REQUIRED. ERP AWARE OF PT DECISION TO LEAVE ER AT THIS TIME
== END 2020-03-17 01:49 | disposition home or self-care (01) ==
LOC: ED 01:24
DX: F15.10 Other stimulant abuse, uncomplicated (principal); L98.9 Disorder of the skin and subcutaneous tissue, unspecified; I10 Essential (primary) hypertension; E11.9 Type 2 diabetes mellitus without complications; F17.200 Nicotine dependence, unspecified, uncomplicated
CPT/HCPCS: 99281; 99282

== ENCOUNTER 2020-03-28 02:45 | Emergency (ER) | payer MEDICAID ==
[~2020-03-28] VITALS: Ht 172.7 cm; Wt 75.0 kg
--- NOTE | 2020-03-28 03:17 | NUR ---
THIS IS A WELL KNOWN 35Y M BIB EMS FOUND SITTING ON CASINO/HOTEL FLOOR, APPEARS INTOXICATED UPON ARRIVAL TO ER. NO OBVIOUS SIGNS OF INJURY. PT PLACED ON 2L NC DUE TO LOW SATS WHILE SLEEPING. OTHER MIRELES STABLE VS.
--- NOTE | 2020-03-28 04:36 | NUR ---
PT STILL RESTING ON GURNEY NO NEEDS AT THIS TIME
[2020-03-28 05:11] VITALS: BP 112/72
--- NOTE | 2020-03-28 05:11 | NUR ---
PT STILL RESTING ON GURNEY REMOVED O2 INDEPENDENTLY. AWAITING SOBRIETY PRIOR TO DC
--- NOTE | 2020-03-28 06:56 | NUR ---
PT REFUSED D/C VITALS, BEGAN DRINKING VODKA WHILE ON GURNEY, AMBULATED OUT ER WITH SECURITY STEADY GAIT
== END 2020-03-28 06:57 | disposition home or self-care (01) ==
LOC: ED 03:20
DX: F10.220 Alcohol dependence with intoxication, uncomplicated (principal); R41.82 Altered mental status, unspecified; I10 Essential (primary) hypertension; Z90.89 Acquired absence of other organs; Y90.0 Blood alcohol level of less than 20 mg/100 ml
CPT/HCPCS: 99283

== ENCOUNTER 2020-04-13 12:57 | Emergency (ER) | payer MEDICAID ==
[~2020-04-13] VITALS: Ht 170.2 cm; Wt 64.0 kg
[~2020-04-13 12:57] MED LIST changes: -FOLI-17 PO; +FOLI1TAB32 PO; -NICO-487 TD; +NICO-587 TD
--- NOTE | 2020-04-13 13:02 | NUR ---
PT BROUGHT IN BY REINIER WITH CHIEF COMPLAINT OF ABD PAIN. RECENTLY EVALUATED HERE ([facility]) AND [facility] FOR SAME COMPLAINT. PT ADMITS TO ETOH USE.
[2020-04-13 13:03] VITALS: BP 125/86
--- NOTE | 2020-04-13 13:22 | NUR ---
BUILDING SERVICE WORKER AT BEDSIDE. Addendum: 04/13/20 at 1322 by [email or web address] PATIENT REFUSING LAB WORK, CAT NOTIFIED.
--- NOTE | 2020-04-13 14:15 | NUR ---
PT VERBALIZED UNDERSTANDING OF DC INSTRUCTIONS, PROVIDED W/ BUS PASS PER PT REQUEST. PT AMBULATORY W/ A STEADY GAIT TO ED FROYLAN.
== END 2020-04-13 14:17 | disposition home or self-care (01) ==
LOC: ED 14:11
DX: F10.220 Alcohol dependence with intoxication, uncomplicated (principal); R10.84 Generalized abdominal pain; I10 Essential (primary) hypertension; E11.9 Type 2 diabetes mellitus without complications; Z90.89 Acquired absence of other organs; Z85.46 Personal history of malignant neoplasm of prostate; Y90.0 Blood alcohol level of less than 20 mg/100 ml
CPT/HCPCS: 99283

== ENCOUNTER 2020-05-09 20:20 | Emergency (ER) | payer MEDICAID ==
[~2020-05-09] VITALS: Ht 170.2 cm; Wt 67.0 kg
[~2020-05-09 20:20] MED LIST changes: +FOLI-17 PO; -FOLI1TAB32 PO
--- NOTE | 2020-05-09 20:29 | NUR ---
CIVIL CADD TECHNICIAN: NOT IN LOBBY
--- NOTE | 2020-05-09 21:07 | NUR ---
PA IN TO SEE PT HE JUST SLEPED DID SAY MUCH JUST WANTED TO SLEEP NO OBS.PAIN WHEN SHE PALPED L HAND....
[2020-05-09 21:53] VITALS: BP 107/88
== END 2020-05-09 22:18 | disposition home or self-care (01) ==
LOC: ED 21:18
DX: S60.222A Contusion of left hand, initial encounter (principal); G31.2 Degeneration of nervous system due to alcohol; G89.11 Acute pain due to trauma; F11.10 Opioid abuse, uncomplicated; F10.20 Alcohol dependence, uncomplicated; E11.9 Type 2 diabetes mellitus without complications; F17.200 Nicotine dependence, unspecified, uncomplicated; Z72.9 Problem related to lifestyle, unspecified; Z90.89 Acquired absence of other organs; W19.XXXA Unspecified fall, initial encounter; Y93.89 Activity, other specified; Y92.488 Other paved roadways as the place of occurrence of the external cause; Y99.8 Other external cause status; Y90.9 Presence of alcohol in blood, level not specified
CPT/HCPCS: 99283

== ENCOUNTER 2020-05-11 17:54 | Emergency (ER) | payer MEDICAID ==
[~2020-05-11] VITALS: Ht 170.2 cm; Wt 65.0 kg
[2020-05-11 18:01] VITALS: BP 146/98
--- NOTE | 2020-05-11 18:08 | NUR ---
REPORT GIVEN TO MACIEL SCOTT
[2020-05-11] MEDS ORDERED: PROMETHAZINE 25 MG/ML, 1ML IM ONE (18:30)
[2020-05-11 18:31] LABS: BASOPHILS % (AUTO) 2 % (0-1); EOSINOPHILS % (AUTO) 0 % (1-7); LYMPHOCYTES % (AUTO) 26 % (22-44); MEAN CORPUSCULAR HEMOGLOBIN 22.3 pg (27.5-34.5); MEAN CORPUSCULAR HGB CONC 30.8 g/dL (33.2-36.2); MEAN PLATELET VOLUME 6.2 fL (7.4-10.4); MONOCYTES % (AUTO) 9 % (2-9); NEUTROPHILS % (AUTO) 63 % (42-75); PLATELET COUNT 400 x10^3/uL (130-400); RED BLOOD COUNT 4.75 x10^6/uL (4.38-5.82); RED CELL DISTRIBUTION WIDTH 21.8 % (9.4-14.8)
[2020-05-11 18:35] LABS: MD NO
[2020-05-11 18:41] LABS: ALANINE AMINOTRANSFERASE 114 U/L (12-78); ALBUMIN 3.5 g/dL (3.4-5.0); ANION GAP 4 mmol/L (5-15); CALCIUM 8.6 mg/dL (8.5-10.1); CHLORIDE 104 mmol/L (98-107); CREATININE 0.98 mg/dL (0.7-1.3)
[2020-05-11 18:43] LABS: ALKALINE PHOSPHATASE 151 U/L (45-117); BILIRUBIN,TOTAL 0.3 mg/dL (0.2-1.0); TOTAL PROTEIN 7.5 g/dL (6.4-8.2)
[2020-05-11] MEDS ORDERED: ONDANSETRON 2MG/ML, 2ML ONE (18:46)
[2020-05-11] MEDS ORDERED: SODIUM CHLORIDE 0.9% 1,000ML IVBOLUS ONE (19:00)
[2020-05-11] MEDS ORDERED: ONDANSETRON 2MG/ML, 2ML IVPush ONE (19:00)
[2020-05-11] MEDS ORDERED: OMNIPAQUE 350 MG/ML, 100ML BOTTLE ONE (19:00)
--- NOTE | 2020-05-11 19:21 | NUR ---
pt up to bathroom, anxious, picking at scabs. wounds cleansed and dressed. iv started
--- NOTE | 2020-05-11 19:22 | NUR ---
pt to ct scan via wheelchair
--- NOTE | 2020-05-11 19:50 | NUR ---
returned from ct scan
[2020-05-11] MEDS ORDERED: LORazepam 2 MG/ML, 1ML ONE (19:52)
[2020-05-11] MEDS ORDERED: LORazepam 2 MG/ML, 1ML IVPush ONE (20:00)
--- NOTE | 2020-05-11 20:28 | NUR ---
pt cleaned up, wounds dressed.
== END 2020-05-11 20:24 | disposition home or self-care (01) ==
LOC: ED 19:17
DX: K20.90 Esophagitis, unspecified without bleeding (principal); G89.29 Other chronic pain; E86.0 Dehydration; R00.0 Tachycardia, unspecified; F17.210 Nicotine dependence, cigarettes, uncomplicated; Z90.89 Acquired absence of other organs
CPT/HCPCS: 36415; 74177; 80053; 83690; 85025; 96374; 96375; 99285; 99406; J2060; J2405; J7030; Q9967; 96361

== ENCOUNTER 2020-05-13 08:05 | Emergency (ER) | payer MEDICAID ==
[~2020-05-13] VITALS: Ht 170.2 cm; Wt 65.3 kg
[2020-05-13 08:08] VITALS: BP 121/80
== END 2020-05-13 09:21 | disposition home or self-care (01) ==
LOC: ED 09:12
DX: L03.114 Cellulitis of left upper limb (principal); F11.10 Opioid abuse, uncomplicated; Z90.89 Acquired absence of other organs
CPT/HCPCS: 99283

== ENCOUNTER 2020-05-23 17:08 | Inpatient (IN) | payer MEDICAID ==
[~2020-05-23] VITALS: Ht 172.7 cm; Wt 65.0 kg
--- NOTE | 2020-05-23 17:27 | NUR ---
NORIS RN: PT BIB [facility] AFTER BEING FOUND OUTSIDE IN THE [employer] [address] THRU UNRESPONSIVE. EMS GAVE 2 MG OF NARCAN INTRANASAL. PT IS NOW A&O X4. INSTRUMENT MAKER ON. SINUS TACH NOTED. BESIDE REPORT GIVEN TO MACIEL STEVENSON.
--- NOTE | 2020-05-23 17:38 | NUR ---
REPORT GIVEN TO MACIEL STEVENSON.
--- NOTE | 2020-05-23 18:03 | NUR ---
ASSUMED CARE FROM MACIEL STEVENSON. [place] RESTING [place] [facility] MONITORING IN PLACE, FRED AT THIS TIME. PT PROVIDED URINAL. WCTM.
[2020-05-23 18:04] LABS: ALANINE AMINOTRANSFERASE 64 U/L (12-78); ALBUMIN 3.7 g/dL (3.4-5.0); ANION GAP 13 mmol/L (5-15); CHLORIDE 104 mmol/L (98-107); SALICYLATE LEVEL 2.6 mg/dL (2.8-20.0)
[2020-05-23 18:06] LABS: ALKALINE PHOSPHATASE 151 U/L (45-117); BILIRUBIN,TOTAL 0.2 mg/dL (0.2-1.0); CREATININE 1.29 mg/dL (0.7-1.3); TOTAL PROTEIN 7.6 g/dL (6.4-8.2)
[2020-05-23 18:13] LABS: BASOPHILS % (AUTO) 1 % (0-1); EOSINOPHILS % (AUTO) 1 % (1-7); LYMPHOCYTES % (AUTO) 33 % (22-44); MEAN CORPUSCULAR HEMOGLOBIN 22.5 pg (27.5-34.5); MEAN CORPUSCULAR HGB CONC 31.2 g/dL (33.2-36.2); MONOCYTES % (AUTO) 12 % (2-9); NEUTROPHILS % (AUTO) 54 % (42-75); PLATELET COUNT 499 x10^3/uL (130-400); RED BLOOD COUNT 5.14 x10^6/uL (4.38-5.82); RED CELL DISTRIBUTION WIDTH 19.7 % (9.4-14.8)
[2020-05-23 18:21] LABS: MD NO
--- NOTE | 2020-05-23 19:03 | NUR ---
PT IN BATHROOM WITH SITTER.
[2020-05-23 19:19] LABS: AMPHETAMINE SCREEN, URINE Positive (Negative); BARBITURATE SCREEN, URINE Negative (Negative); BENZODIAZEPINE SCREEN, URINE Negative (Negative); CANNABINOID SCREEN, URINE Negative (Negative); COCAINE SCREEN, URINE Negative (Negative); METHADONE SCREEN, URINE Negative (Negative); OPIATE SCREEN, URINE Positive (Negative)
[2020-05-23] MEDS ORDERED: ONDANSETRON ODT 4 MG ONE (22:16)
[2020-05-23] MEDS ORDERED: LORazepam 1MG TABLET ONE (22:25)
[2020-05-23] MEDS ORDERED: ONDANSETRON ODT 4 MG PO ONE (22:30)
[2020-05-23] MEDS ORDERED: LORazepam 1MG TABLET PO ONE (22:30)
--- NOTE | 2020-05-23 22:32 | NUR ---
PT VOMITTING IN SINK, PT MEDICATED PER EMAR. PT CONTINUING TO DRINK WATER OUT OF SINK, PT EDUCATED ON NPO STATUS.
--- NOTE | 2020-05-23 22:33 | NUR ---
PT REFUSING MONITORING AT THIS TIME.
[2020-05-23] MEDS ORDERED: HALOPERIDOL 5 MG/ML ONE (22:42)
[2020-05-23] MEDS ORDERED: HALOPERIDOL 5 MG/ML IM ONE (23:00)
--- NOTE | 2020-05-23 23:20 | NUR ---
PT RESTING IN GURNEY WITH EYES CLOSED. PT DESATING TO 83% ON 2L NC, DR. LUQUE AWARE. O2 VIA NC AT 4L, O2 SAT 95%.
[2020-05-23] MEDS ORDERED: NALOXONE 0.4 MG/ML, 1ML ONE (23:38)
[2020-05-24] MEDS ORDERED: SODIUM CHLORIDE FLUSH 10ML SYR IVF ONE
[2020-05-24] MEDS ORDERED: SODIUM CHLORIDE FLUSH 10ML SYR IVF PRN (00:30)
--- NOTE | 2020-05-24 00:41 | NUR ---
PT RESTING IN [facility], WITH EYES CLOSED, MONITORING IN PLACE AT THIS TIME. NADN. WCTM. PULSE OX 95% ON 2L NC.
[2020-05-24] MEDS ORDERED: NALOXONE 0.4 MG/ML, 1ML ONE (01:51)
[2020-05-24] MEDS ORDERED: DOCUSATE 100 MG CAPSULE PO PRN (02:00)
[2020-05-24] MEDS ORDERED: ONDANSETRON 2MG/ML, 2ML IVPush PRN (02:00)
[2020-05-24] MEDS ORDERED: BISACODYL 10 MG SUPP PR PRN (02:00)
[2020-05-24] MEDS ORDERED: NALOXONE 0.4 MG/ML, 1ML IVPush PRN ×2 (02:00)
[2020-05-24] MEDS ORDERED: hydrALAzine 20 MG/ML, 1ML IVPush PRN (02:00)
[2020-05-24] MEDS ORDERED: ONDANSETRON ODT 4 MG PO PRN (02:00)
[2020-05-24] MEDS ORDERED: POLYETHYLENE GLYCOL 17 GM PACKET PO PRN (02:00)
[2020-05-24] MEDS ORDERED: PROMETHAZINE 25 MG/ML, 1ML IM PRN (02:00)
[2020-05-24] MEDS: SODIUM CHLORIDE 0.9% 1,000 ML IV SCH ×3 (02:00→18:45)
--- NOTE | 2020-05-24 02:12 | NUR ---
I ASSUMED PATIENT AT THIS TIME. REPORT RECEIVED FROM TAMMIE ST. IN NAD; RESTING IN BED. BED IN LOWEST POSITION. 1:1 SUPERVISION
--- NOTE | 2020-05-24 02:54 | NUR ---
PATIENT REPORTED TO BE ON LEGAL HOLD BY OFF-GOING RN. I CALLED DR. THOMAS WHO IS ADMITTING HOSPITALIST AT THIS TIME AND HE STATES TO ME THAT "HE DOES NOT DO THAT; PSYCHIATRY DOES THEIR ASSESSMENT AND DOES THE PAPERWORK OR THE ER PHYSICIAN DOES THAT AND IT SHOULD HAVE BEEN DONE PRIOR TO BEING ADMITTED". THE ADMITTING ER PHYSICIAN HAS ENDED HIS SHIFT. I SPOKE WITH BOWL SANDER REGARDING THIS MATTER WELL. WILL FOLLOW UP NEEDED. PATIENT RESTING IN BED; IN NAD. 1:1 SUPERVISING. IVF INFUSING PER ORDER. I READ ER PROVIDERS NOTES AND THIS IS REASON WHY I AM FOLLOWING UP CLOSELY WITH THIS DISCREPANCY.
--- NOTE | 2020-05-24 02:57 | NUR ---
RN WAS INFORMED VERBALLY PT IS ON A L2K. RN CALLED [facility] TO INFORMED THAT ER PHYSICIAN HAS GONE HOME, NO L2K PAPERWORK LOCATED IN ED AT THIS TIME. REDYE HAND AWARE, PT IS AROUSABLE TO PAINFUL STIMULI HOWEVER UNWILLING TO ANSWER QUESTIONS AT THIS TIME AND THEREFORE THIS RN DOES NOT FEEL APPROPRIATE TO PLACE TO A=ON L2K AT THIS TIME.
--- NOTE | 2020-05-24 03:12 | NUR ---
PATIENT RESTING IN BED. IN NAD. CHANGING POSITIONS INFREQUENTLY. AROUSABLE TO REPEATED STIMULUS. MONITORED CLOSELY. 1:1 SUPERVISION. STRETCHER IN LOWERED POSITION.
--- NOTE | 2020-05-24 04:34 | NUR ---
patient transferred over to hospital bed from ED stretcher. patient able to participate in transfer and moved self over to bed. patient able to stand at foot of bed to use urinal with 1:1 supervision. IVF continue to infuse but IV in RAC and patient continues to bend arm. this has been repositioned numerous times. closely monitoring RR due to multiple needs for nalaxone previously this ER visit
--- NOTE | 2020-05-24 06:55 | NUR ---
BEDSIDE REPORT GIVEN TO MALLORY ST
--- NOTE | 2020-05-24 07:05 | NUR ---
rec'd report from blasting coal miner. pt sleeping in bed. appears in no acute distress. vss. sitter at door.
--- NOTE | 2020-05-24 08:23 | NUR ---
PT GIVEN MEAL TRAY. VSS
--- NOTE | 2020-05-24 09:18 | NUR ---
pt had brief episode of tachycardia (140s) when straining to urinate with urinal. once pt finished his HR dropped back into the 70s. denied dizziness or CP when straining.
--- NOTE | 2020-05-24 09:39 | NUR ---
pt resting in bed watching tv. vss
[2020-05-24 10:10] VITALS: BP 108/65
[2020-05-24 12:37] VITALS: BP 94/51
[2020-05-24 19:49] VITALS: BP 106/64
[2020-05-25 01:39] VITALS: BP 101/60
[2020-05-25 08:17] VITALS: BP 117/70
[2020-05-25 09:24] LABS: ALANINE AMINOTRANSFERASE 41 U/L (12-78); ALBUMIN 2.9 g/dL (3.4-5.0); ANION GAP 3 mmol/L (5-15); CALCIUM 8.5 mg/dL (8.5-10.1); CHLORIDE 105 mmol/L (98-107); CREATININE 0.69 mg/dL (0.7-1.3)
[2020-05-25 09:34] LABS: ALKALINE PHOSPHATASE 114 U/L (45-117); BILIRUBIN,TOTAL 0.2 mg/dL (0.2-1.0); TOTAL PROTEIN 6.5 g/dL (6.4-8.2)
[2020-05-25 09:58] LABS: BASOPHILS % (AUTO) 1 % (0-1); EOSINOPHILS % (AUTO) 1 % (1-7); LYMPHOCYTES % (AUTO) 26 % (22-44); MEAN CORPUSCULAR HEMOGLOBIN 22.9 pg (27.5-34.5); MEAN CORPUSCULAR HGB CONC 31.3 g/dL (33.2-36.2); MEAN PLATELET VOLUME 7.2 fL (7.4-10.4); MONOCYTES % (AUTO) 10 % (2-9); NEUTROPHILS % (AUTO) 62 % (42-75); PLATELET COUNT 375 x10^3/uL (130-400); RED BLOOD COUNT 4.47 x10^6/uL (4.38-5.82); RED CELL DISTRIBUTION WIDTH 19.6 % (9.4-14.8)
[2020-05-25 10:17] LABS: MD NO
[2020-05-25] MEDS ORDERED: ACETAMINOPHEN 325 MG TABLET PO PRN (14:30)
[2020-05-25] MEDS ORDERED: METOCLOPRAMIDE 5 MG/ML, 2ML IVPush PRN (14:30)
== END 2020-05-25 20:00 | DRG 917 ==
LOC: ED 18:11 → EDIP 05-24 00:22 → 4WST 05-24 09:52
PROVIDERS: ADMIT Internal Medicine; ATTEND Internal Medicine
DX: T40.1X2A Poisoning by heroin, intentional self-harm, initial encounter (principal); J96.01 Acute respiratory failure with hypoxia; K86.1 Other chronic pancreatitis; T40.2X1A Poisoning by other opioids, accidental (unintentional), initial encounter; F10.10 Alcohol abuse, uncomplicated; F17.210 Nicotine dependence, cigarettes, uncomplicated; E86.0 Dehydration; F15.10 Other stimulant abuse, uncomplicated; R00.0 Tachycardia, unspecified; Z91.19 Patient's noncompliance with other medical treatment and regimen; Z59.0 Homelessness; Y92.89 Other specified places as the place of occurrence of the external cause
CPT/HCPCS: 36415; 71045; 80053; 80299; 80307; 80320; 80329; 82140; 83735; 84100; 84443; 85025; 93005; 96374; G0378; J2310; J2405; Q0162; G0480; J1630; J7030

== ENCOUNTER 2020-06-01 02:08 | Emergency (ER) | payer MEDICAID ==
[~2020-06-01] VITALS: Ht 175.3 cm; Wt 65.6 kg
--- NOTE | 2020-06-01 03:09 | NUR ---
PT SUPINE ON FRED OCONNOR VSS. PT SLEEPING. UNABLE TO AMBULATE AT THIS TIME.
--- NOTE | 2020-06-01 04:04 | NUR ---
PT SUPINE ON GURNEY, NADN, VSS. RESTING COMFORTABLY WITH EYES CLOSED. RESPIRATIONS EQUAL AND UNLABORED. CALL LIGHT AND PERSONAL BELONGINGS WITHIN REACH. O2 SAT OCCASIONALLY DROPS TO 75% ON ROOM AIR WHILE SLEEPING, PT PLACED ON 3L VIA OXY MASK, O2 SAT 99%.
--- NOTE | 2020-06-01 04:53 | NUR ---
PT UP OUT OF BED AND PEEING IN SINK, PT RETURNED BACK TO BED. LEXIIN, BERKLEYS
--- NOTE | 2020-06-01 06:05 | NUR ---
PT SUPINE ON GURNEY, RESPONDING TO PAINFUL STIMULI AND SOME VERBAL STIMULI. UNABLE TO AMBULATE STEADILY AT THIS TIME. CALL LIGHT AND PERSONAL BELONGINGS WITHIN REACH. WILL CONTINUE TO MONITOR.
[2020-06-01 06:06] VITALS: BP 132/72
--- NOTE | 2020-06-01 06:58 | NUR ---
BS REPORT FROM ASHER, ASSUME CARE OF PT AT THIS TIME. PT SLEEPING, NAD, CONTINUE TO MONITOR FOR SAFE DISCHARGE.
--- NOTE | 2020-06-01 07:05 | NUR ---
BEDSIDE REPORT TO ELIZABETH ST
--- NOTE | 2020-06-01 08:01 | NUR ---
PT AMBULATORY WITH STEADY GAIT. PT DISCHARGED.
== END 2020-06-01 08:03 | disposition home or self-care (01) ==
LOC: ED 02:18
DX: F10.129 Alcohol abuse with intoxication, unspecified (principal); F15.129 Other stimulant abuse with intoxication, unspecified; Z72.9 Problem related to lifestyle, unspecified; Z90.89 Acquired absence of other organs; Z88.8 Allergy status to other drugs, medicaments and biological substances; Y90.9 Presence of alcohol in blood, level not specified
CPT/HCPCS: 99285

== ENCOUNTER 2020-06-02 02:04 | Emergency (ER) | payer MEDICAID ==
[~2020-06-02] VITALS: Ht 170.2 cm; Wt 60.0 kg
[~2020-06-02 02:04] MED LIST changes: -FOLI-17 PO; +FOLI1TAB32 PO
--- NOTE | 2020-06-02 02:30 | NUR ---
assessment made. seen by
--- NOTE | 2020-06-02 03:42 | NUR ---
patient sleeping, respiration unlabored.
[2020-06-02 05:04] VITALS: BP 121/65
--- NOTE | 2020-06-02 05:04 | NUR ---
patient awake and ambulatory with steady gait. discharged with instruction. verbalized understanding.
== END 2020-06-02 05:06 | disposition home or self-care (01) ==
LOC: ED 02:34
DX: F10.129 Alcohol abuse with intoxication, unspecified (principal); F15.129 Other stimulant abuse with intoxication, unspecified; F11.129 Opioid abuse with intoxication, unspecified; Z91.018 Allergy to other foods; Z88.8 Allergy status to other drugs, medicaments and biological substances; Y90.9 Presence of alcohol in blood, level not specified
CPT/HCPCS: 99283

== ENCOUNTER 2020-06-05 04:39 | Emergency (ER) | payer MEDICAID ==
[~2020-06-05] VITALS: Ht 172.7 cm; Wt 75.0 kg
[~2020-06-05 04:39] MED LIST changes: +FOLI-17 PO; -FOLI1TAB32 PO
--- NOTE | 2020-06-05 05:19 | NUR ---
Pt resting in bed, free of harm. warm blanket give. Will monitor.
[2020-06-05 05:50] LABS: BASOPHILS % (AUTO) 1 % (0-1); EOSINOPHILS % (AUTO) 3 % (1-7); LYMPHOCYTES % (AUTO) 37 % (22-44); MEAN CORPUSCULAR HEMOGLOBIN 22.4 pg (27.5-34.5); MEAN CORPUSCULAR HGB CONC 31.6 g/dL (33.2-36.2); MEAN PLATELET VOLUME 6.3 fL (7.4-10.4); MONOCYTES % (AUTO) 7 % (2-9); NEUTROPHILS % (AUTO) 52 % (42-75); PLATELET COUNT 461 x10^3/uL (130-400); RED BLOOD COUNT 4.59 x10^6/uL (4.38-5.82); RED CELL DISTRIBUTION WIDTH 19.8 % (9.4-14.8)
[2020-06-05 05:51] LABS: MD NO
[2020-06-05 06:02] LABS: ALANINE AMINOTRANSFERASE 34 U/L (12-78); ALBUMIN 3.2 g/dL (3.4-5.0); ANION GAP 10 mmol/L (5-15); CALCIUM 7.8 mg/dL (8.5-10.1); CHLORIDE 108 mmol/L (98-107); CREATININE 0.67 mg/dL (0.7-1.3)
[2020-06-05 06:15] LABS: ALKALINE PHOSPHATASE 125 U/L (45-117); BILIRUBIN,TOTAL 0.3 mg/dL (0.2-1.0); TOTAL PROTEIN 6.8 g/dL (6.4-8.2)
--- NOTE | 2020-06-05 07:00 | NUR ---
report to Clint. Pt resting, on side, unlabored breathing. VSS. pt free of harm.
--- NOTE | 2020-06-05 07:01 | NUR ---
REPORT OF PT FROM MACIEL ROMANO AND ASSUMING CARE OF PT AT THIS TIME.
--- NOTE | 2020-06-05 07:09 | NUR ---
PT ASLEEP IN [facility], ATTACHED TO VS MONITORS AT THIS TIME. VSS. PT HAS CALL LIGHT WITHIN REACH;
--- NOTE | 2020-06-05 09:03 | NUR ---
PT ASSISTED TO RESTROOM AT THIS TIME. PT UNSTEADY ON HIS FEET AND ASSISTED BACK TO BED TO [facility].
--- NOTE | 2020-06-05 10:30 | NUR ---
PT CONTINUES TO PULL VS EQUIPMENT OFF. UNABLE TO OBTAIN VS AT THIS TIME. PT INSTRUCTED TO RETURN TO [facility] AND ASSISTED BACK TO [facility] AT THIS TIME.
[2020-06-05 12:35] VITALS: BP 100/60
--- NOTE | 2020-06-05 12:46 | NUR ---
PT AMBULATORY WITH SLOW AND STEADY GAIT AND IS NOW AAO X 4. PT SWEARING AT STAFF CALLING MACIEL Cabezas "[facility]". PT EDUCATED ON APPROPRIATE LANGUAGE USE AND PROMPTLY ESCORTED TO REGISTRATION DESK FOR D/C HOME. PT REFUSING D/C VS AT THIS TIME.
== END 2020-06-05 12:50 | disposition home or self-care (01) ==
LOC: MERGE 04:39 → EDBD 04:39 → ED 11:08
DX: F10.120 Alcohol abuse with intoxication, uncomplicated (principal); R41.82 Altered mental status, unspecified; Y90.0 Blood alcohol level of less than 20 mg/100 ml
CPT/HCPCS: 36415; 80053; 80320; 85025; 99285; G0480

== ENCOUNTER 2020-06-06 06:03 | Emergency (ER) | payer MEDICAID ==
[~2020-06-06] VITALS: Ht 175.3 cm; Wt 70.0 kg
--- NOTE | 2020-06-06 06:16 | NUR ---
PT STATED THAT HE HAD A SEIZURE. COMPLAINTS OF LEFT HAND PAIN, AND NECK PAIN. [facility] BIB FROM SCENE. C-COLLAR PLACED BY REINIER. LEFT HAND NOTED TO APPEAR SLIGHTLY SWOLLEN, CMS INTACT, NO BRUISING NOTED. PT RESTING ON GURNEY, CHANGED INTO GOWN, PLACED ON SPO2/BP MONITORING AT THIS TIME. PT PROVIDED WARM BLANKETS FOR COMFORT. NAD, DENIES ADDITIONAL NEEDS AT THIS TIME. BED IN [facility], RAILS ENGAGED, CALL LIGHT ON LAP, WCTM. GIGI ORTEGA AT BS FOR EVAL AND POC.
--- NOTE | 2020-06-06 06:35 | NUR ---
PT RESTING ON GURNEY, NAD, APPEARS COMFORTABLE, NO CHANGE IN CONDITION, WCTM. WAITING FOR IMAGING RESULTS.
--- NOTE | 2020-06-06 06:54 | NUR ---
REPORT TO MONICA ST, PT CARE TRANSFERRED AT THIS TIME.
--- NOTE | 2020-06-06 07:19 | NUR ---
REPORT RECEIVED. PT TO IMAGING.
[2020-06-06 08:50] VITALS: BP 101/65
== END 2020-06-06 08:58 | disposition home or self-care (01) ==
LOC: ED 06:39
DX: S16.1XXA Strain of muscle, fascia and tendon at neck level, initial encounter (principal); S60.222A Contusion of left hand, initial encounter; F10.129 Alcohol abuse with intoxication, unspecified; M54.2 Cervicalgia; R56.9 Unspecified convulsions; W19.XXXA Unspecified fall, initial encounter; Y93.89 Activity, other specified; Y92.89 Other specified places as the place of occurrence of the external cause; Y99.8 Other external cause status; Y90.0 Blood alcohol level of less than 20 mg/100 ml
CPT/HCPCS: 72020; 72050; 99284

== ENCOUNTER 2020-06-14 20:41 | Emergency (ER) | payer MEDICAID ==
[~2020-06-14] VITALS: Ht 170.2 cm; Wt 66.0 kg
[~2020-06-14 20:41] MED LIST changes: -FOLI-17 PO; +FOLI1TAB32 PO
--- NOTE | 2020-06-14 20:44 | NUR ---
TASK RN: [facility] FROM [facility], SECURITY WAS MID HIGH QUALITY CPR UPON EMS ARRIVAL, PT FOUND TO BE UNRESPONSIVE, PINPOINT PUPILS, NO RESP DRIVE, WEKA PULSE. GIVEN 2MG NARCAN IM. PT IS NOW ANOx4, AWAKE AND STATING "OW MY CHEST HURTS, ITS BAD." PT PLACED ON GURNEY, APPEARS COMFORTABLE, BED IN LOWEST, RAILS ENGAGED, CALL LIGHT ON LAP. PT PLACED ON SPO2/BP/ECG MONITORING AT THIS TIME. ZAN ORTEGA AT BS FOR EVAL AND POC.
--- NOTE | 2020-06-14 20:51 | NUR ---
XRAY AT BEDSIDE
--- NOTE | 2020-06-14 21:15 | NUR ---
ERP AT BEDSIDE FOR FURTHER EVAL
--- NOTE | 2020-06-14 21:27 | NUR ---
PT RESTING ON GURNEY NADN, REQ WATER, PER ERP HOLD OFF UNTIL MORE STABLE
[2020-06-14 22:00] VITALS: BP 125/78
--- NOTE | 2020-06-14 22:00 | NUR ---
PT SITTING UP IN [facility] REMOVING MONITORING AND O2. TALKING TO RN AT THIS TIME
--- NOTE | 2020-06-14 22:52 | NUR ---
PT REFUSING TO LEAVE, HAS REMOVED ALL CLOTHING AND IS PICKING AT VARIOUS SCABS. PT STS HE HAS BEEN HAVING BORDERLINE SZ THE ENTIRE TIME HE HAS BEEN IN THE ER. VS SUGGEST OTHERWISE, PT IS NOT AND HAS NOT BEEN POST ICTAL DURING THIS VISIT TO THE ER.
--- NOTE | 2020-06-14 23:04 | NUR ---
Patient/Caregiver given discharge instructions and they have confirmed that they understand the instructions. Patient ambulatory with steady gait.
== END 2020-06-14 23:05 | disposition home or self-care (01) ==
LOC: ED 22:15
DX: F11.10 Opioid abuse, uncomplicated (principal); T40.1X1A Poisoning by heroin, accidental (unintentional), initial encounter; R07.89 Other chest pain; R00.0 Tachycardia, unspecified; R94.31 Abnormal electrocardiogram [ECG] [EKG]; Y92.89 Other specified places as the place of occurrence of the external cause
CPT/HCPCS: 71045; 93005; 99283

== ENCOUNTER 2020-06-14 23:35 | Emergency (ER) | payer MEDICAID ==
[~2020-06-14] VITALS: Ht 170.2 cm; Wt 68.0 kg
[2020-06-14 23:42] VITALS: BP 135/92
--- NOTE | 2020-06-14 23:46 | NUR ---
pt was dc a few hours previously, [facility]IER [facility] stating he needed a ride to [employer] [facility] and was brought back here. pt denies additional needs, states "my mom may be able to pick me up if i call her". Radha VELASCO at for eval, pt is cleared for dc at this time. pt to be provided transfer to desired locations. candace, [facility] .
--- NOTE | 2020-06-15 00:05 | NUR ---
Patient given discharge instructions and they have confirmed that they understand the instructions. Patient ambulatory with steady gait. nad, denies additional questions or needs, provided taxi voucher per request to homeless retirement, unable to reach mother at this time. no personal belongings left in room after dc.
== END 2020-06-15 00:07 | disposition home or self-care (01) ==
LOC: ED 23:40
DX: T40.1X1A Poisoning by heroin, accidental (unintentional), initial encounter (principal); F17.210 Nicotine dependence, cigarettes, uncomplicated; Z90.89 Acquired absence of other organs; Z72.9 Problem related to lifestyle, unspecified; Y92.89 Other specified places as the place of occurrence of the external cause
CPT/HCPCS: 99283; 99406

== ENCOUNTER 2020-06-16 13:22 | Emergency (ER) | payer MEDICAID ==
[~2020-06-16] VITALS: Ht 170.2 cm; Wt 66.1 kg
--- NOTE | 2020-06-16 13:37 | NUR ---
[email or web address]
[2020-06-16 13:41] VITALS: BP 103/55
--- NOTE | 2020-06-16 13:58 | NUR ---
PT D/C WITH D/C SUMMARY AND SCRIPTS. PT ASLEEP IN LOBBY AND BEING ESCORTED OFF PREMESIS BY SECURITY AT THIS TIME. PT AMBULATORY WITH SLOW GAIT.
== END 2020-06-16 14:03 | disposition home or self-care (01) ==
LOC: ED 13:57
DX: G40.509 Epileptic seizures related to external causes, not intractable, without status epilepticus (principal); F17.200 Nicotine dependence, unspecified, uncomplicated; Z76.0 Encounter for issue of repeat prescription; Z90.89 Acquired absence of other organs
CPT/HCPCS: 99281

== ENCOUNTER 2020-06-17 22:44 | Emergency (ER) | payer MEDICAID ==
[~2020-06-17] VITALS: Ht 170.2 cm; Wt 60.0 kg
--- NOTE | 2020-06-18 00:13 | NUR ---
pt d/c with dc summary. pt malingering and refusing to leave on his own. security notified of need to assist pt to lobby. pt vss and updated in emr.
[2020-06-18 00:14] VITALS: BP 103/67
== END 2020-06-18 00:16 | disposition home or self-care (01) ==
LOC: ED 23:35
DX: F15.129 Other stimulant abuse with intoxication, unspecified (principal); F11.129 Opioid abuse with intoxication, unspecified; Z72.9 Problem related to lifestyle, unspecified; R56.9 Unspecified convulsions; F17.200 Nicotine dependence, unspecified, uncomplicated; Z90.89 Acquired absence of other organs
CPT/HCPCS: 99283

== ENCOUNTER 2020-06-18 03:18 | Emergency (ER) | payer MEDICAID ==
[~2020-06-18] VITALS: Ht 172.7 cm; Wt 60.0 kg
[2020-06-18 03:19] VITALS: BP 118/80
== END 2020-06-18 03:43 | disposition home or self-care (01) ==
LOC: ED 03:37
DX: Z00.00 Encounter for general adult medical examination without abnormal findings (principal); Z72.9 Problem related to lifestyle, unspecified; Z90.89 Acquired absence of other organs
CPT/HCPCS: 99283

== ENCOUNTER 2020-06-18 15:17 | Emergency (ER) | payer MEDICAID ==
[~2020-06-18] VITALS: Ht 170.2 cm; Wt 60.0 kg
--- NOTE | 2020-06-18 15:25 | NUR ---
Seizure pads in place, connected to all monitors. Pt sleeping, visible chest rise and fall.
--- NOTE | 2020-06-18 15:27 | NUR ---
MD Vazquez at bedside for eval.
[2020-06-18 16:15] LABS: BASOPHILS % (AUTO) 1 % (0-1); EOSINOPHILS % (AUTO) 2 % (1-7); LYMPHOCYTES % (AUTO) 20 % (22-44); MEAN PLATELET VOLUME 6.3 fL (7.4-10.4); MONOCYTES % (AUTO) 11 % (2-9); NEUTROPHILS % (AUTO) 66 % (42-75); PLATELET COUNT 342 x10^3/uL (130-400); RED BLOOD COUNT 5.05 x10^6/uL (4.38-5.82); RED CELL DISTRIBUTION WIDTH 21.8 % (9.4-14.8)
--- NOTE | 2020-06-18 16:17 | NUR ---
Pt sleeping comfortably, visible chest rise and fall.
[2020-06-18 16:23] LABS: ALBUMIN 3.2 g/dL (3.4-5.0); ANION GAP 6 mmol/L (5-15); CALCIUM 8.3 mg/dL (8.5-10.1); CHLORIDE 108 mmol/L (98-107); CREATININE 0.65 mg/dL (0.7-1.3)
[2020-06-18 16:59] VITALS: BP 124/83
[2020-06-18 18:16] LABS: MD NO
== END 2020-06-18 17:03 | disposition home or self-care (01) ==
LOC: ED 16:55
DX: F10.129 Alcohol abuse with intoxication, unspecified (principal); R56.9 Unspecified convulsions; R55 Syncope and collapse; F17.200 Nicotine dependence, unspecified, uncomplicated; Z91.19 Patient's noncompliance with other medical treatment and regimen; Z90.89 Acquired absence of other organs; Y90.9 Presence of alcohol in blood, level not specified
CPT/HCPCS: 36415; 80048; 80320; 82040; 85025; 93005; 99284; G0480

== ENCOUNTER 2020-06-20 11:40 | Emergency (ER) | payer MEDICAID ==
[~2020-06-20] VITALS: Ht 172.7 cm; Wt 80.0 kg
--- NOTE | 2020-06-20 12:02 | NUR ---
PT COMES IN TODAY FOR SEIZURE "ABOUT AN HOUR AGO". PT REMOVED MONITORS AND IS SITTING ON SIDE OF BED STATING HE HAS TO URINATE. URINAL SUPPLIED. PT EDUCATED TO STAY IN BED AND USE THE CALL LIGHT IF ASSISTANCE NEEDED. WARM BLANKET PROVIDED.
--- NOTE | 2020-06-20 12:02 | NUR ---
AT BEDSIDE FOR ASSESSMENT
--- NOTE | 2020-06-20 12:25 | NUR ---
FOOD PROVIDED PER MD CASTILLO
--- NOTE | 2020-06-20 12:40 | NUR ---
PT SLEEPING ON GURNEY. VOMIT NOTED IN SINK. PT STATES HE GOT UP FROM GURNEY AND VOMITED. VSS. NAD. WILL CONTINUE TO MONITOR
[2020-06-20 12:41] VITALS: BP 106/69
[2020-06-20 12:43] LABS: ALBUMIN 3.3 g/dL (3.4-5.0); ANION GAP 7 mmol/L (5-15); CALCIUM 8.9 mg/dL (8.5-10.1); CHLORIDE 106 mmol/L (98-107)
[2020-06-20 12:44] LABS: CREATININE 0.76 mg/dL (0.7-1.3)
--- NOTE | 2020-06-20 13:52 | NUR ---
BREAK RN: Patient given discharge instructions and they have confirmed that they understand the instructions. Patient ambulatory with steady gait. Patient provided w/ mask.
== END 2020-06-20 13:53 | disposition home or self-care (01) ==
LOC: ED 12:44
DX: F10.120 Alcohol abuse with intoxication, uncomplicated (principal); R56.9 Unspecified convulsions; R55 Syncope and collapse; Z90.89 Acquired absence of other organs; Y90.0 Blood alcohol level of less than 20 mg/100 ml
CPT/HCPCS: 36415; 80048; 80320; 82040; 99283; G0480

== ENCOUNTER 2020-06-20 16:41 | Emergency (ER) | payer MEDICAID ==
[~2020-06-20] VITALS: Ht 177.8 cm; Wt 62.8 kg
[2020-06-20 16:42] VITALS: BP 122/81
--- NOTE | 2020-06-20 16:59 | NUR ---
BREAK RN: PT UP AMBULATORY IN ROOM BY HIMSELF, REMOVED VS MONITORING. PT URINATING IN SINK, ASKED TO STOP AND WOULD NOT. PT AMBULATORY W/ A STEADY GAIT TO ED FROYLAN. RESP EVEN AND UNLABORED, FRED.
== END 2020-06-20 17:01 | disposition home or self-care (01) ==
LOC: ED 16:55
DX: F10.220 Alcohol dependence with intoxication, uncomplicated (principal); F17.210 Nicotine dependence, cigarettes, uncomplicated; Z72.9 Problem related to lifestyle, unspecified; Y90.0 Blood alcohol level of less than 20 mg/100 ml
CPT/HCPCS: 99283

== ENCOUNTER 2020-06-20 21:46 | Emergency (ER) | payer MEDICAID ==
[~2020-06-20] VITALS: Ht 170.2 cm; Wt 64.0 kg
[2020-06-20 21:51] VITALS: BP 118/80
--- NOTE | 2020-06-20 22:08 | NUR ---
ERP AT BEDSIDE.
--- NOTE | 2020-06-20 22:11 | NUR ---
PATIENT ALERT AND ORIENTED. AMBULATE WITH STEADY GAIT. DISCHARGED WITH INSTRUCTION.
== END 2020-06-20 22:17 | disposition home or self-care (01) ==
LOC: ED 22:16
DX: F10.10 Alcohol abuse, uncomplicated (principal); F17.210 Nicotine dependence, cigarettes, uncomplicated; Z72.9 Problem related to lifestyle, unspecified; Z90.89 Acquired absence of other organs; Y90.0 Blood alcohol level of less than 20 mg/100 ml
CPT/HCPCS: 99283; 99406

== ENCOUNTER 2020-06-21 00:24 | Emergency (ER) | payer MEDICAID ==
[~2020-06-21] VITALS: Ht 170.2 cm; Wt 62.0 kg
[2020-06-21 00:36] VITALS: BP 134/92
--- NOTE | 2020-06-21 00:40 | NUR ---
ASSESSMENT MADE. SEEN BY ERP. NO ORDERS
--- NOTE | 2020-06-21 00:47 | NUR ---
PT AMBULATED TO THE BATHROOM WITH A STEADY GAIT. PT TO BE DISCHARGED. PT KEEPS WALKING AROUND ER LOOKING FOR AN EMPTY ROOM. SECURITY CALLED TO ASSIST WITH DC
--- NOTE | 2020-06-21 00:49 | NUR ---
PATIENT ESCORTED BY SECURITY OUT. DISCHARGED.
== END 2020-06-21 00:50 | disposition home or self-care (01) ==
LOC: ED 00:32
DX: F10.10 Alcohol abuse, uncomplicated (principal); F17.210 Nicotine dependence, cigarettes, uncomplicated; Z90.89 Acquired absence of other organs; Y90.9 Presence of alcohol in blood, level not specified
CPT/HCPCS: 99283; 99406

== ENCOUNTER 2020-07-26 12:47 | Emergency (ER) | payer MEDICAID ==
[~2020-07-26] VITALS: Ht 175.3 cm; Wt 80.0 kg
[2020-07-26] MEDS ORDERED: LORazepam 1MG TABLET ONE (12:53)
[2020-07-26] MEDS ORDERED: LORazepam 1MG TABLET PO ONE (13:00)
--- NOTE | 2020-07-26 13:00 | NUR ---
Bib by kayla for agitated beahvior with threats to jump in front of car. Not on legal hold thus far Last etoh 2 days ago Denies amphetamine use today however patient hyperverbal, tangential, picking at various scabs hr 140 erp at bedside-medicated per emar with 2mg of po ativan
--- NOTE | 2020-07-26 13:09 | NUR ---
lab at bedside
[2020-07-26 13:19] LABS: BASOPHILS % (AUTO) 1 % (0-1); EOSINOPHILS % (AUTO) 5 % (1-7); LYMPHOCYTES % (AUTO) 43 % (22-44); MEAN CORPUSCULAR HEMOGLOBIN 23.4 pg (27.5-34.5); MEAN CORPUSCULAR HGB CONC 32.5 g/dL (33.2-36.2); MONOCYTES % (AUTO) 12 % (2-9); NEUTROPHILS % (AUTO) 40 % (42-75); PLATELET COUNT 344 x10^3/uL (130-400); RED BLOOD COUNT 5.01 x10^6/uL (4.38-5.82); RED CELL DISTRIBUTION WIDTH 21.4 % (9.4-14.8)
[2020-07-26 13:23] LABS: MD NO
[2020-07-26 13:32] LABS: ALANINE AMINOTRANSFERASE 462 U/L (12-78); ALBUMIN 3.8 g/dL (3.4-5.0); ANION GAP 8 mmol/L (5-15); CALCIUM 8.9 mg/dL (8.5-10.1); CHLORIDE 108 mmol/L (98-107); CREATININE 0.97 mg/dL (0.7-1.3)
[2020-07-26 13:34] LABS: ALKALINE PHOSPHATASE 151 U/L (45-117); BILIRUBIN,TOTAL 0.3 mg/dL (0.2-1.0); SALICYLATE LEVEL < 1.7 mg/dL (2.8-20.0); TOTAL PROTEIN 7.5 g/dL (6.4-8.2)
--- NOTE | 2020-07-26 13:42 | NUR ---
PT REFUSING TO PROVIDE URINE AT THIS TIME. PT PROVIDED WATER AT HIS REQUEST TO FACILITATE URINATING.
--- NOTE | 2020-07-26 14:24 | NUR ---
PT CONTINUES TO REFUSE TO PROVIDE URINE SAMPLE, STATES "PLEASE JUST GIVE ME METH MIXED WITH VODKA". PT CONTINUOUSLY TRYING TO COME OUT OF ROOM AND WONDER IN HALLWAY, PT EDUCATED ON IMPORTANCE OF STAYING IN ROOM, SITTER AT BEDSIDE.
[2020-07-26] MEDS ORDERED: ZIPRASIDONE 20 MG INJ IM ONE ×2 (14:57→15:00)
--- NOTE | 2020-07-26 18:15 | NUR ---
TASK RN COVERING MEAL BREAK. PT SLEEPING, NAD.
--- NOTE | 2020-07-26 19:30 | NUR ---
PT PROVIDED MEAL TRAY AT THIS TIME.
[2020-07-26 19:40] VITALS: BP 139/71
== END 2020-07-26 21:50 | disposition home or self-care (01) ==
LOC: ED 14:06
DX: Z00.00 Encounter for general adult medical examination without abnormal findings (principal); Z72.9 Problem related to lifestyle, unspecified; F10.129 Alcohol abuse with intoxication, unspecified; Y90.0 Blood alcohol level of less than 20 mg/100 ml
CPT/HCPCS: 36415; 80053; 80299; 80320; 85025; 96372; 99283; J3486; 80329; G0480

== ENCOUNTER 2020-07-27 04:20 | Inpatient (IN) | payer MEDICAID ==
[~2020-07-27] VITALS: Ht 170.2 cm; Wt 69.5 kg
--- NOTE | 2020-07-27 04:30 | NUR ---
THIS IS A 35Y M BIB EMS FOUND LAYING OUTSIDE UNRESPONSIVE AND NOT BREATHING, PT GIVEN 2 OF NARCAN INTRANASALLY PRODUCT MARKETING COORDINATOR, UPON ARRIVAL PT OPENS EYES BUT IS NONVERBAL AND CAN FOLLOW SIMPLE COMMANDS. 20G LAC INSERTED PRODUCT MARKETING COORDINATOR WARM FLUIDS INFUSING. PT CONNECTED TO ALL MONITORING AND PLACED ON ETCO2. ERP AT BEDSIDE FOR FURTHER EVAL Addendum: 07/27/20 at 0514 by [email or web address] PT ARRIVES ON 2LNC WITH SAT LOW 90'S.
[2020-07-27] MEDS ORDERED: NALOXONE 0.4 MG/ML, 1ML ONE (04:34)
--- NOTE | 2020-07-27 04:35 | NUR ---
PT PLACED ON BEAR HUGGER D/T SHIVERING.
--- NOTE | 2020-07-27 04:40 | NUR ---
NARCAN GIVEN PER BIAGI AT THIS TIME
[2020-07-27] MEDS ORDERED: PROPOFOL 10 MG/ML, 20ML ONE ×2 (04:42→05:45)
--- NOTE | 2020-07-27 04:50 | NUR ---
PT NOW UP TO 6L NC AND NOT HOLDING SATS WELL (86%-87%), ERP TO BEDSIDE FOR EVAL
--- NOTE | 2020-07-27 04:56 | NUR ---
PT MOVED TO T4 AFTER UNABLE TO HOLD O2 SATS IN ROOM 1. RSI KIT OBTAINED, AND ORDERES RECEIVED TO INTUBATE PT. PT AWAKE AND O2 SATS 85%. PLACED ON CR MONITOR, AND RT CALLED TO ROOM. PT PRE OXYGENATED, AND PER MD, MEDICATION GIVEN TO RSI PT. 20MG ETOMIDATE AND 100MG ROCURONIUM. PT BECAME UNRESPONSIVE AFTER MEDS, AND BAGGED WITH BVM. PT INTUBATED X1 ATTEMPT WITH 8.0 CUFFED TUBE, 24CM AT THE LIP. GOOD BILATERAL BREATH SOUNDS, AND COLOR CHANGE ON CO2 AIR EXCHANGE MODULE.
--- NOTE | 2020-07-27 04:58 | NUR ---
16FR HILL BEING PLACED AT THIS TIME, AND OGT 16FR ALSO PLACED AND SECURED PER PROTOCOLS
--- NOTE | 2020-07-27 04:58 | NUR ---
PT ON VENTILATOR PER RT. CO2 LEVEL AT 51, AND RR CHANGED TO 20BPM ON THE VENT TO HELP BLOW OF CO2.
[2020-07-27] MEDS ORDERED: MIDAZOLAM HCL 50 MG in SODIUM CHLORIDE 0.9% 40 ML IV PRN ×2 (05:00→06:30)
[2020-07-27] MEDS ORDERED: MIDAZOLAM 1 MG/ML, 5ML IVPush ONE (05:00)
[2020-07-27] MEDS ORDERED: ROCURONIUM 10 MG/ML,10ML IVPush ONE (05:00)
[2020-07-27] MEDS ORDERED: THIAMINE 100 MG in SODIUM CHLORIDE 0.9% 50 ML IVPB ONE (05:00)
[2020-07-27] MEDS ORDERED: ETOMIDATE 20 MG/10 ML IVPush ONE (05:00)
--- NOTE | 2020-07-27 05:02 | NUR ---
VERSED SINGLE DOSE GIVEN PER MD ORDER FOR SEDATION.
[2020-07-27] MEDS ORDERED: CEFTRIAXONE PMX 1GM/50ML 50 ML ONE (05:27)
[2020-07-27] MEDS ORDERED: AZITHROMYCIN 500 MG in SODIUM CHLORIDE 0.9% 250 ML IV ONE (05:30)
[2020-07-27] MEDS ORDERED: CEFTRIAXONE PMX 1GM/50ML 50 ML IV ONE (05:30)
[2020-07-27 05:41] LABS: AMPHETAMINE SCREEN, URINE Positive (Negative); BARBITURATE SCREEN, URINE Negative (Negative); BENZODIAZEPINE SCREEN, URINE Negative (Negative); CANNABINOID SCREEN, URINE Negative (Negative); COCAINE SCREEN, URINE Negative (Negative); METHADONE SCREEN, URINE Negative (Negative); OPIATE SCREEN, URINE Positive (Negative)
[2020-07-27] MEDS ORDERED: ROCURONIUM 10MG/ML,5ML ONE (05:45)
[2020-07-27] MEDS ORDERED: ETOMIDATE 20 MG/10 ML ONE (05:45)
[2020-07-27] MEDS ORDERED: MIDAZOLAM 1 MG/ML, 5ML ONE (05:45)
--- NOTE | 2020-07-27 05:46 | NUR ---
LAB CALLED AND STATES THAT LAVENDER TOP IS CLOTTED AND THEY WILL BE RETURNING TO REDRAW. RN NOTIFIED.
--- NOTE | 2020-07-27 05:48 | NUR ---
MULTIPLE ATTEMPTS TO PLACE OGT OR NGT ATTEMPTED BY 2 RN'S. DIFFICULTY PASSING TUBE PAST TONGUE EITHER THRU NOSE OR MOUTH. CURLS UP IN THE BACK OF THE THROAT. MD AWARE. CONTINUING TO ATTEMPT PLACEMENT OF OGT. ETT SECURE AND GOOD BREATH SOUNDS BILATERALLY, CLEAR.
--- NOTE | 2020-07-27 05:51 | NUR ---
LAB CALLED AND STATES THAT ABG IS CLOTTED AND THEY WILL BE COMING TO REDRAW. RN NOTIFIED.
[2020-07-27 05:53] LABS: ALBUMIN 3.3 g/dL (3.4-5.0); ANION GAP 7 mmol/L (5-15); CHLORIDE 104 mmol/L (98-107)
[2020-07-27 06:01] LABS: ALANINE AMINOTRANSFERASE 342 U/L (12-78); ALKALINE PHOSPHATASE 128 U/L (45-117); BILIRUBIN,TOTAL 0.2 mg/dL (0.2-1.0); CREATININE 1.01 mg/dL (0.7-1.3); SALICYLATE LEVEL < 1.7 mg/dL (2.8-20.0); TOTAL PROTEIN 6.5 g/dL (6.4-8.2)
--- NOTE | 2020-07-27 06:01 | NUR ---
OGT PLACED, POS STOMACH CONTENTS, AUSCULTATION.
--- NOTE | 2020-07-27 06:06 | NUR ---
HADOOP APPLICATION DEVELOPER TO ROOM TO DRAW MORE BLOOD. PT REMAINS ASLEEP ON CR MONITOR, ETT SECURE AND ON VENTILATOR.
[2020-07-27 06:15] LABS: BASOPHILS % (AUTO) 1 % (0-1); EOSINOPHILS % (AUTO) 0 % (1-7); LYMPHOCYTES % (AUTO) 9 % (22-44); MEAN CORPUSCULAR HEMOGLOBIN 23.3 pg (27.5-34.5); MEAN CORPUSCULAR HGB CONC 32.7 g/dL (33.2-36.2); MEAN PLATELET VOLUME 6.9 fL (7.4-10.4); MONOCYTES % (AUTO) 7 % (2-9); NEUTROPHILS % (AUTO) 83 % (42-75); PLATELET COUNT 239 x10^3/uL (130-400); RED BLOOD COUNT 4.44 x10^6/uL (4.38-5.82); RED CELL DISTRIBUTION WIDTH 20.8 % (9.4-14.8)
[2020-07-27 06:24] LABS: MD NO
--- NOTE | 2020-07-27 06:28 | NUR ---
PT REPORT CALLED TO CCU RN, AND PT TRANSFERRED TO CCU VIA GURNEY AND ON CR MONITOR, AND PORTABLE VENTILATOR. NO ISSUES IN TRANSPORT, AND ETT REMAINS AT 24 CM EZIO AND SECURE. PIV SITES INTACT BILATERALLY.
[2020-07-27] MEDS ORDERED: hydrALAzine 20 MG/ML, 1ML IVPush PRN (06:30)
[2020-07-27] MEDS ORDERED: POLYETHYLENE GLYCOL 17 GM PACKET PO PRN (06:30)
[2020-07-27] MEDS ORDERED: ONDANSETRON 2MG/ML, 2ML IVPush PRN (06:30)
[2020-07-27] MEDS ORDERED: ACETAMINOPHEN 325 MG TABLET PO PRN (06:30)
[2020-07-27] MEDS ORDERED: ENALAPRILAT 1.25 MG/ML, 2ML IVPush PRN (06:30)
[2020-07-27] MEDS ORDERED: PROPOFOL 100 ML IV PRN ×2 (06:30→08:30)
[2020-07-27] MEDS ORDERED: BISACODYL 10 MG SUPP PR PRN ×2 (06:30→08:30)
[2020-07-27] MEDS ORDERED: SODIUM CHLORIDE 0.9% 1,000 ML IV SCH (06:30)
[2020-07-27] MEDS ORDERED: morphine SULFATE 10 MG/ML, 1ML IVPush PRN (06:30)
[2020-07-27] MEDS: ENOXAPARIN 40 MG/0.4 ML SQ SCH (06:45)
[2020-07-27] MEDS: POTASSIUM CHLORIDE 20 MEQ, MAGNESIUM SULFATE 1 GM, THIAMINE 200 MG, FOLIC ACID 1 MG in ... IV SCH (08:04)
[2020-07-27] MEDS ORDERED: FENTANYL PF 1,000 MCG in SODIUM CHLORIDE 0.9% 80 ML IV PRN (08:30)
[2020-07-27] MEDS ORDERED: SENNA/DOCUSATE TABLET NG PRN (08:30)
[2020-07-27] MEDS ORDERED: PHARMACY MAY ADJ FOR RENAL FX MC SCH (08:30)
[2020-07-27] MEDS ORDERED: LIDOCAINE-MPF 1%, 2ML ENDO PRN (08:30)
[2020-07-27] MEDS ORDERED: FAMOTIDINE 20 MG/2 ML IV SCH (08:30)
[2020-07-27] MEDS ORDERED: NOREPINEPHRINE 8 MG in SODIUM CHLORIDE 0.9% 242 ML IV PRN ×2 (08:30→16:00)
[2020-07-27] MEDS ORDERED: SENNA 176 MG/5 ML ORAL SOL NG PRN (08:30)
[2020-07-27] MEDS ORDERED: LACTULOSE 20 GM/30 ML UDC NG PRN (08:30)
[2020-07-27] MEDS: FAMOTIDINE 20 MG/2 ML IVPush SCH ×2 (08:32→20:24)
[2020-07-27 08:45] LABS: MICROSCOPIC NOT IND
[2020-07-27] MEDS ORDERED: SENNA/DOCUSATE TABLET PO SCH (09:00)
[2020-07-27] MEDS: AMPICILLIN/SULBACTAM 3 GM in SODIUM CHLORIDE 0.9% 100 ML IV SCH ×3 (09:17→20:24)
[2020-07-27] MEDS: MIDAZOLAM HCL 50 MG in SODIUM CHLORIDE 0.9% 40 ML IV PRN (09:17)
[2020-07-27] MEDS ORDERED: ACETAMINOPHEN 650 MG/20.3 ML UDC ONE (12:25)
[2020-07-27] MEDS ORDERED: ACETAMINOPHEN 650 MG/20.3 ML UDC PO PRN (13:00)
[2020-07-27] MEDS ORDERED: SODIUM CHLORIDE 0.9%, 500ML IVBOLUS ONE (14:00)
[2020-07-27] MEDS ORDERED: SODIUM CHLORIDE 0.9% 1,000ML IVBOLUS ONE (14:30)
[2020-07-27] MEDS: OXYcodone IR 5MG TABLET PO PRN (20:25)
[2020-07-28] MEDS: OXYcodone IR 5MG TABLET PO PRN (00:01)
[2020-07-28] MEDS: AMPICILLIN/SULBACTAM 3 GM in SODIUM CHLORIDE 0.9% 100 ML IV SCH ×4 (03:48→20:44)
[2020-07-28] MEDS: MIDAZOLAM HCL 50 MG in SODIUM CHLORIDE 0.9% 40 ML IV PRN (04:15)
[2020-07-28 04:32] LABS: BASOPHILS % (AUTO) 0 % (0-1); EOSINOPHILS % (AUTO) 3 % (1-7); LYMPHOCYTES % (AUTO) 25 % (22-44); MEAN CORPUSCULAR HEMOGLOBIN 23.3 pg (27.5-34.5); MEAN CORPUSCULAR HGB CONC 31.8 g/dL (33.2-36.2); MEAN PLATELET VOLUME 7.3 fL (7.4-10.4); MONOCYTES % (AUTO) 9 % (2-9); NEUTROPHILS % (AUTO) 63 % (42-75); PLATELET COUNT 201 x10^3/uL (130-400); RED BLOOD COUNT 3.86 x10^6/uL (4.38-5.82); RED CELL DISTRIBUTION WIDTH 21.2 % (9.4-14.8)
[2020-07-28 04:34] LABS: MD NO
[2020-07-28 04:38] LABS: ALANINE AMINOTRANSFERASE 210 U/L (12-78); ALBUMIN 2.6 g/dL (3.4-5.0); ANION GAP 4 mmol/L (5-15); CALCIUM 8.3 mg/dL (8.5-10.1); CHLORIDE 115 mmol/L (98-107); CREATININE 0.63 mg/dL (0.7-1.3)
[2020-07-28 04:40] LABS: ALKALINE PHOSPHATASE 110 U/L (45-117); BILIRUBIN,TOTAL 0.5 mg/dL (0.2-1.0); TOTAL PROTEIN 5.5 g/dL (6.4-8.2)
[2020-07-28] MEDS: ENOXAPARIN 40 MG/0.4 ML SQ SCH (06:43)
[2020-07-28] MEDS: POTASSIUM CHLORIDE 10% 40 MEQ/30 ML UDC PO SCH ×2 (07:53→21:00)
[2020-07-28] MEDS ORDERED: ONDANSETRON 2MG/ML, 2ML IV PRN (08:00)
[2020-07-28] MEDS: POTASSIUM CHLORIDE 20 MEQ, MAGNESIUM SULFATE 1 GM, THIAMINE 200 MG, FOLIC ACID 1 MG in ... IV SCH (08:28)
[2020-07-28] MEDS ORDERED: DEXMEDETOMIDINE 200 MCG in SODIUM CHLORIDE 0.9% 48 ML IV PRN (08:30)
[2020-07-28] MEDS: FAMOTIDINE 20 MG/2 ML IVPush SCH ×2 (08:33→20:45)
[2020-07-28] MEDS: LORazepam 2 MG/ML, 1ML IVPush PRN (22:25)
[2020-07-29] MEDS: LORazepam 2 MG/ML, 1ML IVPush PRN (01:46)
[2020-07-29] MEDS: AMPICILLIN/SULBACTAM 3 GM in SODIUM CHLORIDE 0.9% 100 ML IV SCH ×4 (04:07→21:46)
[2020-07-29 05:37] LABS: BASOPHILS % (AUTO) 2 % (0-1); EOSINOPHILS % (AUTO) 5 % (1-7); LYMPHOCYTES % (AUTO) 31 % (22-44); MEAN CORPUSCULAR HEMOGLOBIN 23.7 pg (27.5-34.5); MEAN CORPUSCULAR HGB CONC 32.1 g/dL (33.2-36.2); MEAN PLATELET VOLUME 7.5 fL (7.4-10.4); MONOCYTES % (AUTO) 12 % (2-9); NEUTROPHILS % (AUTO) 50 % (42-75); PLATELET COUNT 250 x10^3/uL (130-400); RED BLOOD COUNT 3.96 x10^6/uL (4.38-5.82); RED CELL DISTRIBUTION WIDTH 20.7 % (9.4-14.8)
[2020-07-29] MEDS: ENOXAPARIN 40 MG/0.4 ML SQ SCH (05:41)
[2020-07-29 05:44] LABS: ANION GAP 3 mmol/L (5-15); CALCIUM 8.4 mg/dL (8.5-10.1); CHLORIDE 110 mmol/L (98-107)
[2020-07-29 05:46] LABS: CREATININE 0.63 mg/dL (0.7-1.3)
[2020-07-29 06:04] LABS: MD SCAN
[2020-07-29] MEDS: FERROUS SULFATE 325 MG TABLET PO SCH ×2 (09:15→17:00)
[2020-07-29] MEDS: POTASSIUM CHLORIDE 20 MEQ, MAGNESIUM SULFATE 1 GM, THIAMINE 200 MG, FOLIC ACID 1 MG in ... IV SCH (10:23)
[2020-07-29 13:59] VITALS: BP 119/76
[2020-07-29] MEDS ORDERED: POTASSIUM CHLORIDE 20 MEQ, MAGNESIUM SULFATE 1 GM, THIAMINE 200 MG, FOLIC ACID 1 MG in ... IV SCH (18:00)
[2020-07-29 20:08] VITALS: BP 117/73
[2020-07-30] MEDS: AMPICILLIN/SULBACTAM 3 GM in SODIUM CHLORIDE 0.9% 100 ML IV SCH ×2 (03:09→08:49)
[2020-07-30 06:05] LABS: BASOPHILS % (AUTO) 1 % (0-1); EOSINOPHILS % (AUTO) 8 % (1-7); LYMPHOCYTES % (AUTO) 34 % (22-44); MEAN CORPUSCULAR HEMOGLOBIN 23.4 pg (27.5-34.5); MEAN PLATELET VOLUME 7.2 fL (7.4-10.4); MONOCYTES % (AUTO) 11 % (2-9); NEUTROPHILS % (AUTO) 46 % (42-75); PLATELET COUNT 284 x10^3/uL (130-400); RED BLOOD COUNT 4.52 x10^6/uL (4.38-5.82); RED CELL DISTRIBUTION WIDTH 20.6 % (9.4-14.8)
[2020-07-30 06:08] LABS: CHLORIDE 108 mmol/L (98-107)
[2020-07-30 06:14] LABS: ANION GAP 6 mmol/L (5-15); CALCIUM 8.9 mg/dL (8.5-10.1); CREATININE 0.59 mg/dL (0.7-1.3); TRIGLYCERIDES 104 mg/dL (50-200)
[2020-07-30 06:20] LABS: MD NO
[2020-07-30] MEDS: ENOXAPARIN 40 MG/0.4 ML SQ SCH (06:26)
[2020-07-30] MEDS: FERROUS SULFATE 325 MG TABLET PO SCH (08:00)
[2020-07-30] MEDS ORDERED: POTASSIUM CHLORIDE 20 MEQ, MAGNESIUM SULFATE 1 GM, THIAMINE 200 MG, FOLIC ACID 1 MG in ... IV SCH (10:30)
== END 2020-07-30 10:31 | disposition left against medical advice (07) | DRG 208 ==
LOC: ED 04:40 → EDIP 05:23 → CCU 06:22 → 3N 07-29 12:55
PROVIDERS: ADMIT Internal Medicine; ATTEND Internal Medicine
PROC: 0T9B70Z Drainage of Bladder with Drainage Device, Via Natural or Artificial Opening (ICD-10-PCS; principal; 2020-07-27)
PROC: 5A1945Z Respiratory Ventilation, 24-96 Consecutive Hours (ICD-10-PCS; 2020-07-27)
PROC: 0BH17EZ Insertion of Endotracheal Airway into Trachea, Via Natural or Artificial Opening (ICD-10-PCS; 2020-07-27)
DX: J69.0 Pneumonitis due to inhalation of food and vomit (principal); J96.01 Acute respiratory failure with hypoxia; G93.41 Metabolic encephalopathy; Z99.11 Dependence on respirator [ventilator] status; Z53.29 Procedure and treatment not carried out because of patient's decision for other reasons; B18.2 Chronic viral hepatitis C; D50.9 Iron deficiency anemia, unspecified; F11.10 Opioid abuse, uncomplicated; R94.5 Abnormal results of liver function studies; F15.10 Other stimulant abuse, uncomplicated; B96.1 Klebsiella pneumoniae [K. pneumoniae] as the cause of diseases classified elsewhere; F17.200 Nicotine dependence, unspecified, uncomplicated; Z59.0 Homelessness; Z85.07 Personal history of malignant neoplasm of pancreas; Z88.8 Allergy status to other drugs, medicaments and biological substances; Z91.018 Allergy to other foods
CPT/HCPCS: 31500; 36415; 36573; 36600; 71045; 80048; 80053; 80299; 80307; 80320; 80329; 81003; 82728; 82803; 83540; 83550; 83735; 84100; 84478; 85025; 87040; 87070; 87077; 87081; 87186; 87205; 93005; 94002; 94003; 94150; 96374; 96375; G0378; J0295; J0456; J0696; J1650; J2250; J2405; J2704; J3411; J3475; J3480; C1751; G0480; J2060; J2270; J7030; J7040; J7050

== ENCOUNTER 2020-07-31 07:15 | Emergency (ER) | payer MEDICAID ==
[~2020-07-31] VITALS: Ht 170.2 cm; Wt 63.8 kg
--- NOTE | 2020-07-31 07:32 | NUR ---
PT BIB EMS AFTER BYSTANDER MCDANIEL 911 FOR AN INTOXICATED MALE. PT GCS 10. PER EMS PT RESPONDED WHEN HIS NAME WAS CALLED, BUT NOT RESPONDING OTHERWISE. PT HAS VOMIT COVERING THE FRONT OF HIS SHIRT. PT CHANGED INTO GOWN AND PLACED ON MONITORS. VSS. PT PLACED ON LEFT SIDE. RAILS OF BED UP. CALL LIGHT WITHIN REACH.
--- NOTE | 2020-07-31 07:57 | NUR ---
PT REPEATEDLY PULLING OFF MONITORING EQUIPMENT. PT NOT RESPONDING TO REQUESTS TO LEAVE SPO2 ON.
--- NOTE | 2020-07-31 09:34 | NUR ---
SOCKS PLACED ON PT. PT STILL REFUSING TO KEEP MONITORING EQUIPMENT ON.
[2020-07-31 10:58] VITALS: BP 109/63
--- NOTE | 2020-07-31 12:01 | NUR ---
PT REC'VD DISCHARGE INSTRUCTIONS AND EDUCATION. PT HAD NO QUESTIONS. PT AMBULATED TO DC AREA, STEADY GAIT.
== END 2020-07-31 12:04 | disposition home or self-care (01) ==
LOC: ED 07:39
DX: F10.220 Alcohol dependence with intoxication, uncomplicated (principal); R11.2 Nausea with vomiting, unspecified; Y90.0 Blood alcohol level of less than 20 mg/100 ml
CPT/HCPCS: 99283

== ENCOUNTER 2020-07-31 14:56 | Emergency (ER) | payer MEDICAID ==
[~2020-07-31] VITALS: Ht 170.2 cm; Wt 66.2 kg
--- NOTE | 2020-07-31 15:22 | NUR ---
Pt STATES HE THREW UP WHICH CAUSED HIM TO HAVE A GROUND LEVEL FALL. EMS REPORTS FOUND PT SITTING UPM, WALKED HIM TO [facility], AND TOOK PT TO [facility]. EMS GAVE 4MG OF ZOFRAN. PT WOMITED ON TRANSPORT. DENIES LOC OR HEAD INJURY OR TAKING BLOOD THINNERS.NO BLOOD NOTED AND PATIENT CONVERSING BACK. PT STATES HE ONLY HAS ONE BEER BUT NOTED TO BE POSSIBLY INTOXICATED. CURRENTLY RESTING IN BED.
--- NOTE | 2020-07-31 15:46 | NUR ---
PT OF UNIT IN IMAGING.
[2020-07-31 16:42] VITALS: BP 97/54
--- NOTE | 2020-07-31 16:42 | NUR ---
PT LYING IN BED. DOES NOT WANT TO TALK OR ANSWER QUESTIONS. VSS. CALL LIGHT DIANA REACH
--- NOTE | 2020-07-31 17:15 | NUR ---
PT AMBULATORY TO BATHROOM AND BACK WITH STEADY GATE. GIVEN SNACKS AND DRINKS.
== END 2020-07-31 17:49 | disposition home or self-care (01) ==
LOC: ED 17:24
DX: S09.90XA Unspecified injury of head, initial encounter (principal); F10.129 Alcohol abuse with intoxication, unspecified; X58.XXXA Exposure to other specified factors, initial encounter; Y93.89 Activity, other specified; Y92.89 Other specified places as the place of occurrence of the external cause; Y99.8 Other external cause status; Y90.0 Blood alcohol level of less than 20 mg/100 ml
CPT/HCPCS: 70450; 99284

== ENCOUNTER 2020-07-31 20:54 | Emergency (ER) | payer MEDICAID ==
[~2020-07-31] VITALS: Ht 175.3 cm; Wt 65.0 kg
--- NOTE | 2020-07-31 21:08 | NUR ---
PT BIBA after the [place] [employer] called for pt acting altered. BG =129 Pt responds to verbal, moans, and pulls covers over head. VSS, pt with non-labored breathing. Will monitor,.
--- NOTE | 2020-07-31 22:05 | NUR ---
Pt resting in bed, no changes. non-labored breathing. MOA, VSS. RA sats 97%
[2020-07-31 22:40] VITALS: BP 135/84
--- NOTE | 2020-07-31 22:41 | NUR ---
pt ambulated from 16 to 17 with steady gait, security called for dc assisst.
== END 2020-07-31 22:44 | disposition home or self-care (01) ==
LOC: ED 21:24
DX: F15.129 Other stimulant abuse with intoxication, unspecified (principal); G92 Toxic encephalopathy; Z72.9 Problem related to lifestyle, unspecified; Z90.89 Acquired absence of other organs; Z85.07 Personal history of malignant neoplasm of pancreas
CPT/HCPCS: 99281

== ENCOUNTER 2020-08-01 02:56 | Emergency (ER) | payer MEDICAID ==
[~2020-08-01] VITALS: Ht 170.2 cm; Wt 70.0 kg
--- NOTE | 2020-08-01 03:12 | NUR ---
antonio mccoy at for eval and poc. pt to be dc'd
[2020-08-01 03:13] VITALS: BP 107/76
--- NOTE | 2020-08-01 03:39 | NUR ---
Patient given discharge instructions and they have confirmed that they understand the instructions. Patient ambulatory with steady gait. nad, denies additional needs, provided taxi voucher and snacks. no personal belongings left in room after dc.
== END 2020-08-01 03:40 | disposition home or self-care (01) ==
LOC: ED 03:26
DX: F10.129 Alcohol abuse with intoxication, unspecified (principal); F15.129 Other stimulant abuse with intoxication, unspecified; R56.9 Unspecified convulsions; R51.9 Headache, unspecified; Z72.9 Problem related to lifestyle, unspecified; Z90.89 Acquired absence of other organs; Y90.0 Blood alcohol level of less than 20 mg/100 ml
CPT/HCPCS: 99283

== ENCOUNTER 2020-10-24 21:48 | Emergency (ER) | payer MEDICAID ==
[~2020-10-24] VITALS: Ht 172.7 cm; Wt 68.0 kg
[~2020-10-24 21:48] MED LIST changes: +DOXY-246 PO; -DOXY100C15 PO; +SULF-23 PO; -SULF1TAB24 PO
[2020-10-24 21:56] VITALS: BP 123/77
--- NOTE | 2020-10-24 23:03 | NUR ---
PT ASLEEP IN LOBBY. RR EVEN NON LABORED. AMBULATORY TO ROOM.
== END 2020-10-25 00:14 | disposition home or self-care (01) ==
LOC: ED 22:15
DX: S09.90XA Unspecified injury of head, initial encounter (principal); Z72.9 Problem related to lifestyle, unspecified; Y04.8XXA Assault by other bodily force, initial encounter; Y93.89 Activity, other specified; Y92.410 Unspecified street and highway as the place of occurrence of the external cause; Y99.8 Other external cause status
CPT/HCPCS: 99281

== ENCOUNTER 2020-11-02 06:26 | Emergency (ER) | payer MEDICAID ==
[~2020-11-02] VITALS: Ht 177.8 cm; Wt 66.0 kg
[2020-11-02 06:29] VITALS: BP 115/73
--- NOTE | 2020-11-02 07:56 | NUR ---
Quirino suarez in [facility] - 11/02/20 at 0757 by USMAN oil distributor tender: Pt ambulatory to room from lobby at this time.
--- NOTE | 2020-11-02 07:58 | NUR ---
multiple punch press operator: attempted to move pt to room from lobby, no answer in lobby
--- NOTE | 2020-11-02 07:58 | NUR ---
CALL X1 NOT IN LOBBY
--- NOTE | 2020-11-02 08:03 | NUR ---
CALL X2 NOT IN LOBBY
--- NOTE | 2020-11-02 08:12 | NUR ---
CALL X3 NOT IN LOBBY
== END 2020-11-02 08:14 | disposition left against medical advice (07) ==
LOC: ED 08:08
DX: F10.129 Alcohol abuse with intoxication, unspecified (principal); Y90.0 Blood alcohol level of less than 20 mg/100 ml; Z53.21 Procedure and treatment not carried out due to patient leaving prior to being seen by health care provider
CPT/HCPCS: 99281

== ENCOUNTER 2020-11-04 13:24 | Emergency (ER) | payer MEDICAID ==
[~2020-11-04] VITALS: Ht 172.7 cm; Wt 70.0 kg
--- NOTE | 2020-11-04 13:35 | NUR ---
Pt continually moving to masterbate. Pt is only cooperative when this RN pokes chest for mild painful stimuli. Pt moves NC O2 off his face, trying to pull at IV. Pt cooperative when told to "roll to his side and take a nap." Pt back from CT after unsuccesful attempts. Pt sitting up, eyes open hands folded and legs crossed, moving all extremities purposely. Addendum: 11/04/20 at 1409 by [email or web address] Pt continually moving to masterbate. Pt is only cooperative when this RN pokes chest for mild painful stimuli. Pt moves NC O2 off his face, trying to pull at IV. Pt cooperative when told to "roll to his side and take a nap." Pt back from CT after unsuccesful attempts. Pt sitting up, eyes open hands folded and legs crossed, moving all extremities purposely. This note back timed at pt's actions are same from prior to CT and after returning.
--- NOTE | 2020-11-04 13:57 | NUR ---
Pt to imaging via [facility].
[2020-11-04 14:29] LABS: BASOPHILS % (AUTO) 1 % (0-1); EOSINOPHILS % (AUTO) 2 % (1-7); LYMPHOCYTES % (AUTO) 48 % (22-44); MEAN CORPUSCULAR HEMOGLOBIN 24.6 pg (27.5-34.5); MEAN CORPUSCULAR HGB CONC 32.6 g/dL (33.2-36.2); MEAN PLATELET VOLUME 6.4 fL (7.4-10.4); MONOCYTES % (AUTO) 10 % (2-9); NEUTROPHILS % (AUTO) 39 % (42-75); PLATELET COUNT 474 x10^3/uL (130-400); RED BLOOD COUNT 4.86 x10^6/uL (4.38-5.82); RED CELL DISTRIBUTION WIDTH 17.2 % (9.4-14.8)
[2020-11-04 14:35] LABS: ALANINE AMINOTRANSFERASE 95 U/L (12-78); ALBUMIN 3.2 g/dL (3.4-5.0); ANION GAP 6 mmol/L (5-15); CALCIUM 7.8 mg/dL (8.5-10.1); CHLORIDE 110 mmol/L (98-107)
[2020-11-04 14:37] LABS: ALKALINE PHOSPHATASE 140 U/L (45-117); BILIRUBIN,TOTAL 0.2 mg/dL (0.2-1.0); CREATININE 0.63 mg/dL (0.7-1.3); TOTAL PROTEIN 6.9 g/dL (6.4-8.2)
--- NOTE | 2020-11-04 14:41 | NUR ---
Pt intermittently sitting up in gurney, eyes open, then returning to laying on his side with eyes closed. Respirations even and unlabored.
[2020-11-04 14:43] LABS: SALICYLATE LEVEL < 1.7 mg/dL (2.8-20.0)
--- NOTE | 2020-11-04 15:04 | NUR ---
Pt continually moving in bed, removed all vitals monitoring equipment. This RN has replaced and pt removed them again.
--- NOTE | 2020-11-04 15:55 | NUR ---
Pt continually rolling around in bed. Respirations even and unlabored.
--- NOTE | 2020-11-04 16:02 | NUR ---
PT RESTING IN BED. VSS.
[2020-11-04 16:33] VITALS: BP 95/51
--- NOTE | 2020-11-04 16:47 | NUR ---
Pt able to give demographics at this time.
--- NOTE | 2020-11-04 17:38 | NUR ---
Pt has pulled off vss monitors again.
--- NOTE | 2020-11-04 17:38 | NUR ---
Pt sleeping in prone position, respirations even and unlabored.
--- NOTE | 2020-11-04 18:14 | NUR ---
EMT and RN to bedside to attempt EKG again. Pt refusing to lay still. RN Albert, educated pt to lay still for interventions as he's in the hospital. Pt hit RN, refused EKG and was able to dress self, and ambulatory to d/c with steady gait.
== END 2020-11-04 18:15 | disposition home or self-care (01) ==
LOC: EDBD 13:24 → MERGE 18:00 → ED 18:00
DX: F10.220 Alcohol dependence with intoxication, uncomplicated (principal); Y90.0 Blood alcohol level of less than 20 mg/100 ml
CPT/HCPCS: 36415; 71045; 80053; 80299; 80320; 80329; 85025; 99284; G0480